=== PATIENT | female | born 1955 | race Caucasian/White ===

== ENCOUNTER → 2020-08-02 09:06 | Outpatient (REF) | payer MEDICAID, SELFPAY ==
--- NOTE | 2020-08-02 | NM_ITS ---
Lexiscan Myocardial perfusion study Indication: Chest pressure, hypertension, assess for coronary disease and ischemia Technique: The patient was brought in for a Lexiscan perfusion study on 08/02/2020 and was injected 0.4 mg of Lexiscan intravenously. Within a minute of this injection 25 mCi of sestamibi was given intravenously. Images were obtained using the SPECT gamma camera interlaced with the gating device. Images were obtained in supine position. Resting perfusion study was performed on 08/03/2020. Patient was administered 25 mCi of sestamibi intravenously at rest. Images were then obtained in supine position. Total DLP 76mGy-cm. Images were processed with the software and compared side to side in short axis, horizontal long axis and vertical long axis views. Findings: Raw acquisition was reviewed. The stress perfusion study showed mildly diminished tracer uptake in the distal part of the anterior wall. With CT attenuation correction, this is still persistent. The gated study shows normal LV systolic function with calculated LVEF of > 75%. LV cavity is normal in size. The gated study shows diminished wall thickening in the apical anterior wall. Resting study shows no significant perfusion abnormality. However, with CT attenuation correction there is a mild perfusion defect in the apical anterior wall. Gating at rest reveals ejection fraction at 71%. The findings are consistent with mild reversible apical anterior perfusion defect. Impression: 1. Myocardial perfusion imaging study shows mild apical anterior reversible perfusion defect suggestive of ischemia. 2. Gated LVEF is > 70%. 3. Transient ischemic dilatation not present. EKG component of the test reported separately.
--- NOTE | 2020-08-02 08:30 | CA_ITS ---
Acquisition Time: 2020-08-02 09:20:19 Total Exercise Time: 00:02:00 Test Indications: Chest Pain Medications: METOPROLOL AMLODIPINE LISINOPRIL/HCTZ ASA Protocol: LEXISCAN Max HR: 126 BPM 81% of Pred: 155 BPM Max BP: 152/084 mmHG Max Work Load: 1.0 METS Pharmacological stress test using Lexiscan while sitting and kicking. Tolerated well. C/o headache sx. reversed with Aminophyline. No anginal sx. EKG without any arrhythmias. Non-diagnostic for ischemia. Nuclear images to follow. Normotensive response to test. Test reviewed with Dr. Victoria Referred By: Amilcar Sutton Overread By: Esteban Bhatia
== END ==
LOC: HO.CARD 09:06
PROVIDERS: PCP Family Medicine; Visit Provider Internal Medicine Cardiovascular Disease
DX: R07.89 Other chest pain (principal)
CPT/HCPCS: 78452; 93017; A9500; J0280; J2785

== ENCOUNTER → 2020-09-07 10:45 | Outpatient (BNVA) | payer MEDICAID, SELFPAY | PROVIDERS: PCP Family Medicine; Visit Provider Internal Medicine Cardiovascular Disease | DX: I10 Essential (primary) hypertension (principal); R94.39 Abnormal result of other cardiovascular function study; Z79.82 Long term (current) use of aspirin | CPT/HCPCS: 99212 ==

== ENCOUNTER 2020-09-12 08:26 | Outpatient (REF) | payer MEDICAID, SELFPAY ==
[2020-09-12 09:42] LABS: Hemoglobin 15.3 g/dl (12.0-16.0); Mean Corpuscular Hemoglobin 31.6 pg (27.0-33.0); Mean Platelet Volume 10.3 fL (9.4-12.3); Platelet Count 225 X10*3/uL (160-400); Red Blood Count 4.84 X10*6/uL (4.20-5.50); Red Cell Distribution Width 11.9 % (11.0-16.0); White Blood Count 6.4 X10*3/uL (4.8-10.8)
[2020-09-12 10:10] LABS: Anion Gap 13 (12-20); Blood Urea Nitrogen 23 mg/dL (9-16); Calcium 9.1 mg/dL (8.4-10.2); Carbon Dioxide 28 mmol/L (22-29); Chloride 102 mmol/L (96-108); Cholesterol 247 mg/dL; Estimated Glomerular Filt Rate > 60; Glucose Random 97 mg/dL (60-115); HDL Cholesterol 52 mg/dL; LDL Cholesterol Calculated 162 mg/dl; Potassium 4.4 mmol/l (3.3-5.1); Sodium 139 mmol/L (135-145); Triglycerides 169 mg/dL
[2020-09-12 10:18] LABS: Prothrombin Time 11.4 SEC (10.8-13.0)
== END 2020-09-12 08:27 | disposition home or self-care (01) ==
LOC: HO.LAB 08:26
PROVIDERS: PCP Family Medicine; Visit Provider Internal Medicine Cardiovascular Disease
DX: R94.39 Abnormal result of other cardiovascular function study (principal); I10 Essential (primary) hypertension
CPT/HCPCS: 36415; 80048; 80061; 85027; 85610

== ENCOUNTER → 2020-10-16 13:53 | Outpatient (BNVA) | payer MEDICAID, SELFPAY | PROVIDERS: PCP Family Medicine; Visit Provider Internal Medicine Cardiovascular Disease | DX: I10 Essential (primary) hypertension (principal); I25.42 Coronary artery dissection | CPT/HCPCS: 99212 ==

== ENCOUNTER → 2021-02-19 10:08 | Outpatient (BNVA) | payer MEDICAID, SELFPAY | PROVIDERS: PCP Family Medicine; Visit Provider Internal Medicine Cardiovascular Disease | DX: I25.10 Atherosclerotic heart disease of native coronary artery without angina pectoris (principal); I10 Essential (primary) hypertension | CPT/HCPCS: 99212 ==

== ENCOUNTER → 2021-08-16 09:24 | Outpatient (BNVA) | payer MEDICAID, SELFPAY | PROVIDERS: PCP Family Medicine; Referring Provider Family Medicine; Visit Provider Internal Medicine Cardiovascular Disease | DX: I25.42 Coronary artery dissection (principal); I10 Essential (primary) hypertension | CPT/HCPCS: 93005; 99212 ==

== ENCOUNTER 2021-08-20 07:42 | Outpatient (REF) | payer MEDICAID, SELFPAY ==
--- NOTE | ~2021-08-20 | CT_ITS ---
EXAMINATION: CT HEAD WITHOUT CONTRAST CLINICAL INFORMATION: 65-year-old female presented with other symptoms and signs involving cognitive function . COMPARISON: CT of the head done on 04/12/2020. TECHNIQUE: Contiguous axial imaging was performed from the skull base to vertex without intravenous administration of contrast. This CT examination was performed using dose optimization techniques as appropriate, variously including the following: *Automated exposure control *Adjustment of mA and/or kV according to patient size (this includes techniques or standardized protocols for targeted exams where dose is matched to indication/reason for exam; i.e. extremities or head) *Use of iterative reconstruction technique DLP: 598.0 mGy-cm FINDINGS: There is no evidence of acute intracranial hemorrhage or territorial infarction. No abnormal mass effect or midline shift is seen. Guidry to white matter differentiation is well preserved. No extra-axial fluid collections are identified. The ventricles are normal in size. There is no abnormal attenuation within the brain parenchyma. The osseous structures and soft tissues are normal. The mastoid air cells and visualized portions of the paranasal sinuses are well aerated. No significant change since 04/12/2020. CT/CT head/brain wo con IMPRESSION: No acute intracranial pathology. No significant change since 04/12/2020.
== END 2021-08-20 07:43 | disposition home or self-care (01) ==
LOC: HO.CT 07:42
PROVIDERS: PCP Family Medicine; Visit Provider Family Medicine
DX: R41.89 Other symptoms and signs involving cognitive functions and awareness (principal); R42 Dizziness and giddiness
CPT/HCPCS: 70450

== ENCOUNTER 2021-11-20 07:08 | Outpatient (RCR) | payer MEDICAID, SELFPAY ==
[2021-11-20 07:10] VITALS: BP 140/80; PULSE 86; O2SAT 96
== END 2022-05-10 13:33 | disposition home or self-care (01) ==
LOC: HO.PTWFD 07:08
PROVIDERS: PCP Family Medicine; Visit Provider Family Medicine
DX: R42 Dizziness and giddiness (principal)
CPT/HCPCS: 95992; 97162

== ENCOUNTER 2021-11-26 10:09 | Outpatient (REF) | payer MEDICAID, SELFPAY ==
[2021-11-26 11:37] LABS: MANUAL DIFF FLAG NO
[2021-11-26 11:39] LABS: Appearance Urine CLEAR; Color Urine YELLOW; Glucose Urine UA NEG (NEG); Leukocyte Esterase Urine 1+ (NEG); Nitrite Urine NEG (NEG); PH 6.5 (5.0-8.0); Specific Gravity - Urine <= 1.005 (1.005-1.025); Urine Blood TRACE (NEG); Urine Ketones NEG (NEG); Urine Protein NEG (NEG-TRACE)
[2021-11-26 11:51] LABS: Basophils Percent Auto 0.2 % (0-2); Eosinophils Percent Auto 0.2 % (0-4); Hematocrit 42.3 % (37.0-47.0); Hemoglobin 14.5 g/dl (12.0-16.0); Imm Gran Abs Auto 0.02 X10*3/uL (0.00-0.03); Imm Gran Pct Auto 0.3 % (0.0-0.4); Lymphocytes Absolute Auto 1.5 X10*3/uL (1.2-4.9); Mean Corpuscular HGB Conc 34.3 g/dl (31.0-35.0); Mean Corpuscular Volume 90.6 fL (80.0-98.0); Mean Platelet Volume 9.8 fL (9.4-12.3); Monocytes Absolute Auto 0.7 X10*3/uL (0.1-1.2); Monocytes Percent Auto 11.1 % (2-11); Neutrophils Absolute Auto 3.9 x10*3/uL (2.0-8.3); Neutrophils Percent Auto 63.2 % (45-73); Platelet Count 210 X10*3/uL (160-400); Red Blood Count 4.67 X10*6/uL (4.20-5.50); Red Cell Distribution Width 11.7 % (11.0-16.0); White Blood Count 6.1 X10*3/uL (4.8-10.8)
[2021-11-26 11:57] LABS: Bacteria Urine 3+ /LPF; RBC Urine 0-2 /HPF (0); Squamous Epithelial Cell Urine 3+ /LPF; WBC Urine 0-2 /HPF (0-4)
[2021-11-26 12:15] LABS: Alanine Aminotransferase 36 U/L (0-31); Albumin Level 4.1 g/dL (3.5-5.0); Alkaline Phosphatase 94 U/L (39-117); Anion Gap 14 (12-20); Aspartate Amino Transferase 25 U/L (5-31); Bilirubin Total 0.8 mg/dL (0.0-1.0); Blood Urea Nitrogen 16 mg/dL (9-16); Calcium 9.5 mg/dL (8.4-10.2); Carbon Dioxide 26 mmol/L (22-29); Chloride 101 mmol/L (96-108); Estimated Glomerular Filt Rate > 60; Glucose Random 99 mg/dL (60-115); Potassium 3.6 mmol/L (3.3-5.1); Sodium 137 mmol/L (135-145); Total Protein 7.1 g/dL (6.5-8.0)
[2021-11-26 12:37] LABS: TSH reflex Free T4 0.48 uIU/mL (0.32-4.0)
== END 2021-11-26 10:10 | disposition home or self-care (01) ==
LOC: HO.WFDLDS 10:09
PROVIDERS: Visit Provider Family Medicine
DX: Z00.00 Encounter for general adult medical examination without abnormal findings (principal); I10 Essential (primary) hypertension; R42 Dizziness and giddiness
CPT/HCPCS: 36415; 80053; 81001; 84443; 85025

== ENCOUNTER 2021-12-31 11:44 | Outpatient (REF) | payer MEDICAID, SELFPAY | END 2021-12-31 11:45 | disposition home or self-care (01) | LOC: HO.LAB 11:44 | PROVIDERS: Visit Provider Family Medicine | DX: Z00.00 Encounter for general adult medical examination without abnormal findings (principal); R30.0 Dysuria | CPT/HCPCS: 87086; 87088 ==

== ENCOUNTER 2022-02-04 10:25 | Outpatient (REF) | payer MEDICAID, SELFPAY ==
[2022-02-04 13:42] LABS: Anion Gap 14 (12-20); Blood Urea Nitrogen 28 mg/dL (9-16); Calcium 10.3 mg/dL (8.4-10.2); Carbon Dioxide 25 mmol/L (22-29); Chloride 100 mmol/L (96-108); Estimated Glomerular Filt Rate > 60; Glucose Random 100 mg/dL (60-115); Potassium 4.3 mmol/L (3.3-5.1); Sodium 135 mmol/L (135-145)
[2022-02-04 14:29] LABS: Creatinine Urine 76.49 mg/dL; Microalbum/Creatinine Ratio Ur 15.6 ug/mg cr
== END 2022-02-04 10:26 | disposition home or self-care (01) ==
LOC: HO.WFDLDS 10:25
PROVIDERS: Visit Provider Family Medicine
DX: Z00.00 Encounter for general adult medical examination without abnormal findings (principal); I10 Essential (primary) hypertension
CPT/HCPCS: 36415; 80048; 82043

== ENCOUNTER 2022-08-05 10:02 | Outpatient (REF) | payer MEDICAID, SELFPAY ==
--- NOTE | ~2022-08-05 | XR_ITS ---
EXAMINATION: XR FOOT, LEFT CLINICAL INFORMATION: Pain COMPARISON: None TECHNIQUE: AP, lateral, and oblique views of the left foot. FINDINGS: Bone alignment is normal. No fracture or dislocation is seen. There is mild arthritis first MTP joint with joint space narrowing and osteophyte formation. There are calcaneal spurs. Soft tissues are otherwise normal. XR/XR foot LT min 3V IMPRESSION: Mild arthritis at the first MTP joint and calcaneal spurs.
--- NOTE | ~2022-08-05 | XR_ITS ---
EXAMINATION: XR CERVICAL SPINE CLINICAL INFORMATION: Spondylosis COMPARISON: Previous cervical spine x-ray June 2020 TECHNIQUE: 1 views of the cervical spine were obtained. FINDINGS: There is curvature of the lower cervical and upper thoracic spine to the left. Bone alignment is otherwise normal. No fracture or dislocation. There is degenerative spondylosis and degenerative disc disease at C5-C6 and C6-C7. Right-sided neural foramen are patent. There is left-sided neural foraminal narrowing at C5-C6 from bony osteophyte. Prevertebral soft tissues are normal. XR/XR cervical spine 4V IMPRESSION: Degenerative changes similar to June 2020 exam.
[2022-08-05 10:17] LABS: MANUAL DIFF FLAG NO
[2022-08-05 10:36] LABS: Basophils Percent Auto 0.2 % (0-2); Eosinophils Percent Auto 0.7 % (0-4); Hematocrit 43.8 % (37.0-47.0); Hemoglobin 14.8 g/dl (12.0-16.0); Imm Gran Abs Auto 0.01 X10*3/uL (0.00-0.03); Imm Gran Pct Auto 0.2 % (0.0-0.4); Lymphocytes Absolute Auto 2.2 X10*3/uL (1.2-4.9); Lymphocytes Percent Auto 39.1 % (20-40); Mean Corpuscular HGB Conc 33.8 g/dl (31.0-35.0); Mean Corpuscular Hemoglobin 31.4 pg (27.0-33.0); Mean Corpuscular Volume 92.8 fL (80.0-98.0); Monocytes Absolute Auto 0.4 X10*3/uL (0.1-1.2); Monocytes Percent Auto 7.7 % (2-11); Neutrophils Percent Auto 52.1 % (45-73); Platelet Count 222 X10*3/uL (160-400); Red Blood Count 4.72 X10*6/uL (4.20-5.50); Red Cell Distribution Width 12.4 % (11.0-16.0); White Blood Count 5.7 X10*3/uL (4.8-10.8)
[2022-08-05 11:04] LABS: Alanine Aminotransferase 39 U/L (0-31); Albumin Level 4.3 g/dL (3.5-5.0); Alkaline Phosphatase 101 U/L (39-117); Anion Gap 16 (12-20); Aspartate Amino Transferase 31 U/L (5-31); Bilirubin Total 0.8 mg/dL (0.0-1.0); Blood Urea Nitrogen 20 mg/dL (9-16); Calcium 9.6 mg/dL (8.4-10.2); Carbon Dioxide 23 mmol/L (22-29); Chloride 108 mmol/L (96-108); Estimated Glomerular Filt Rate > 60; Glucose Random 124 mg/dL (60-115); Sodium 143 mmol/L (135-145); Total Protein 7.3 g/dL (6.5-8.0)
[2022-08-05 11:25] LABS: Erythrocyte Sedimentation Rate 10 MM/HR (0-20)
== END 2022-08-05 10:03 | disposition home or self-care (01) ==
LOC: HO.XRAY 10:02
PROVIDERS: PCP Family Medicine; Visit Provider Psychiatry & Neurology Neurology
DX: M79.672 Pain in left foot (principal); M47.812 Spondylosis without myelopathy or radiculopathy, cervical region; G31.84 Mild cognitive impairment of uncertain or unknown etiology
CPT/HCPCS: 36415; 72050; 73630; 80053; 85025; 85652

== ENCOUNTER → 2022-09-30 10:39 | Outpatient (BNVA) | payer MEDICAID, SELFPAY | PROVIDERS: PCP Family Medicine; Referring Provider Family Medicine; Visit Provider Internal Medicine Cardiovascular Disease | DX: I25.42 Coronary artery dissection (principal); I10 Essential (primary) hypertension; E78.5 Hyperlipidemia, unspecified | CPT/HCPCS: 93005; 99212 ==

== ENCOUNTER 2022-10-01 09:27 | Outpatient (REF) | payer MEDICAID, SELFPAY ==
[2022-10-01 10:27] LABS: Cholesterol 178 mg/dL; HDL Cholesterol 58 mg/dL; LDL Cholesterol Calculated 100 mg/dl; Triglycerides 102 mg/dL
== END 2022-10-01 09:28 | disposition home or self-care (01) ==
LOC: HO.LAB 09:27
PROVIDERS: PCP Family Medicine; Visit Provider Internal Medicine Cardiovascular Disease
DX: E78.5 Hyperlipidemia, unspecified (principal)
CPT/HCPCS: 36415; 80061

== ENCOUNTER 2023-01-03 12:01 | Outpatient (REF) | payer MEDICAID, SELFPAY ==
[2023-01-03 13:47] LABS: MANUAL DIFF FLAG NO
[2023-01-03 13:52] LABS: Basophils Percent Auto 0.4 % (0-2); Eosinophils Absolute Auto 0.1 X10*3/uL (0.0-0.4); Eosinophils Percent Auto 1.5 % (0-4); Hematocrit 43.8 % (37.0-47.0); Imm Gran Abs Auto 0.02 X10*3/uL (0.00-0.03); Imm Gran Pct Auto 0.3 % (0.0-0.4); Lymphocytes Absolute Auto 3.1 X10*3/uL (1.2-4.9); Lymphocytes Percent Auto 40.5 % (20-40); Mean Corpuscular HGB Conc 34.2 g/dl (31.0-35.0); Mean Corpuscular Hemoglobin 31.4 pg (27.0-33.0); Mean Corpuscular Volume 91.8 fL (80.0-98.0); Monocytes Absolute Auto 0.6 X10*3/uL (0.1-1.2); Monocytes Percent Auto 7.5 % (2-11); Neutrophils Absolute Auto 3.8 x10*3/uL (2.0-8.3); Neutrophils Percent Auto 49.8 % (45-73); Platelet Count 251 X10*3/uL (160-400); Red Blood Count 4.77 X10*6/uL (4.20-5.50); Red Cell Distribution Width 12.7 % (11.0-16.0); White Blood Count 7.6 X10*3/uL (4.8-10.8)
[2023-01-03 15:27] LABS: Anion Gap 17 (12-20); Blood Urea Nitrogen 23 mg/dL (9-16); Calcium 9.8 mg/dL (8.4-10.2); Carbon Dioxide 25 mmol/L (22-29); Chloride 102 mmol/L (96-108); Estimated Glomerular Filt Rate > 60; Glucose Random 108 mg/dL (60-115); Potassium 3.9 mmol/L (3.3-5.1); Sodium 140 mmol/L (135-145)
[2023-01-03 15:31] LABS: Thyroid Stimulating Hormone 1.01 uIU/mL (0.32-4.0)
[2023-01-05 16:08] LABS: Triiodothyronine T3 Total 120 ng/dL (76-181)
== END 2023-01-03 12:02 | disposition home or self-care (01) ==
LOC: HO.WFDLDS 12:01
PROVIDERS: Visit Provider Family Medicine
DX: Z00.00 Encounter for general adult medical examination without abnormal findings (principal); R22.1 Localized swelling, mass and lump, neck; E03.9 Hypothyroidism, unspecified
CPT/HCPCS: 36415; 80048; 84439; 84443; 84480; 85025

== ENCOUNTER 2023-01-08 09:31 | Outpatient (REF) | payer MEDICAID, SELFPAY ==
--- NOTE | ~2023-01-08 | US_ITS ---
EXAMINATION: US THYROID CLINICAL INFORMATION: Localized swelling, mass and lump, neck. COMPARISON: None available. TECHNIQUE: Linear transducer grayscale and color Doppler examination with attention to the region of the thyroid. FINDINGS: SIZE: Measurements of the thyroid lobes and nodules are given in sagittal, anteroposterior and transverse dimensions respectively. Right Thyroid Lobe: 4.5 x 2.6 x 3.2 cm, volume 19.6 mL. Parenchyma: The gland echotexture is heterogeneous. Thyroid vascularity is increased. Left Thyroid Lobe: 3.9 x 1.3 x 1.2 cm, volume 3.2 mL. Parenchyma: The gland echotexture is homogeneous. Thyroid vascularity is mildly increased. Isthmus: 1.5 cm in maximum AP dimension. Estimated total number of nodules greater than or equal to 1 cm: 3. Heel Trimmer nodules are described as follows: 1. Location: Right mid. Size: 3.6 x 2.6 x 2.8 cm, volume 13.8 mL. Nodule characteristics: Composition: Mixed cystic and solid (1). Echogenicity: Isoechoic (1). Shape: Not taller than wide (0). Margins: Smooth (0). Echogenic Foci: Punctate echogenic foci (3). ACR TI-RADS total points: 5 ACR TI-RADS category: 4 2. Location: Isthmus inferior. Size: 3.0 x 2.0 x 2.6 cm, volume 8.2 mL. Nodule characteristics: Composition: Solid (2). Echogenicity: Hypoechoic (2). Shape: Not taller than wide (0). Margins: Extrathyroidal extension (3). Echogenic Foci: None (0). ACR TI-RADS total points: 7 ACR TI-RADS category: 5 3. Location: Left lateral. Size: 0.9 x 0.5 x 0.5 cm, volume 0.11 mL. Nodule characteristics: Composition: Solid (2). Echogenicity: Isoechoic (1). Shape: Not taller than wide (0). Margins: Smooth (0). Echogenic Foci: None (0). ACR TI-RADS total points: 3 ACR TI-RADS category: 3 4. Location: Left mid. Size: 1.2 x 0.7 x 0.9 cm, volume 0.4 mL. Nodule characteristics: Composition: Solid (2). Echogenicity: Isoechoic (1). Shape: Not taller than wide (0). Margins: Smooth (0). Echogenic Foci: None (0). ACR TI-RADS total points: 3 ACR TI-RADS category: 3 NODES: No lymphadenopathy is seen in the tissue surrounding the thyroid gland. US/US thyroid IMPRESSION: 1. Bilateral thyroid nodules are seen, as detailed. The 3.6 cm and 3.0 cm in maximal diameter right thyroid lobe and thyroid isthmus nodules meet ACR biopsy criteria and are amenable to ultrasound-guided biopsy, if clinically indicated and not already performed. 2. There is heterogeneous thyroid echotexture and increased vascularity, which can be associated with thyroiditis. ACR TI-RADS RECOMMENDATION REFERENCE: Ultrasound-guided fine-needle aspiration, followup ultrasound, no further follow up. * TR1 (0 point) and TR2 (2 points): No FNA or follow up. * TR3 (3 points): FNA if more than or equal to 2.5 cm in maximum dimension, followup ultrasound in 1, 3 and 5 years if 1.5 to 2.4 cm in maximum dimension. * TR4 (4-6 points): FNA if more than or equal to 1.5 cm in maximum dimension, followup ultrasound in 1, 2, 3 and 5 years if 1 to 1.4 cm in maximum dimension. * TR5 (more than or equal to 7 points): FNA if more than or equal to 1 cm in maximum dimension, followup ultrasound every year for 5 years if 0.5 to 0.9 cm in maximum dimension. * TR3, TR4 or TR5 nodules that are below the size threshold for followup receive no follow up.
== END 2023-01-08 09:32 | disposition home or self-care (01) ==
LOC: HO.US 09:31
PROVIDERS: PCP Family Medicine; Visit Provider Family Medicine
DX: R22.1 Localized swelling, mass and lump, neck (principal)
CPT/HCPCS: 76536

== ENCOUNTER → 2023-01-27 08:57 | Outpatient (BNVA) | payer MEDICAID, SELFPAY | PROVIDERS: PCP Family Medicine; Visit Provider Internal Medicine | DX: E04.2 Nontoxic multinodular goiter (principal) | CPT/HCPCS: 99202 ==

== ENCOUNTER 2023-05-13 08:57 | Outpatient (AMB) | payer MEDICAID, SELFPAY ==
[2023-05-13 08:58] VITALS: BP 128/72; PULSE 95; RESP 12; TEMP 36.6; O2SAT 98; BMI 27.7
--- NOTE | 2023-05-13 08:58 | MHC.PC.OV ---
Vital Signs 05/13/23 08:58 Height 5 ft Weight 142 lb BMI 27.7 BP 128/72 Blood Pressure Location Rt brachial Position Sitting Respiration 12 Pulse 95 Pulse Source Pulse Oximeter Temp 97.8 F Temp Source Temporal Artery Scan Pulse Oximetry (%) 98 Oxygen Delivery Method Room Air Intake Visit Reasons: f/u hypertension and chronic conditions Buffing Turner And Counter Required: Yes Buffing Turner And Counter Name: Daughter (Luz) Accompanied by: Daughter Allergies flu shot Adverse Reaction (Unknown, Uncoded 02/11/23 09:54) Patient can't remember reaction. Tobacco use date assessed: 01/09/23 Fall risk assessment: No Falls in past year Last assessed Fall Risk: 05/13/23 Dental Screening Dental Screen Date: 05/13/23 Did you have a dental visit in the last 12 months?: No Did you have a dental problem in the last 6 months where you did not have access to dental care?: No Was dental information given to patient?: Patient has dentist HPI f/u hypertension and chronic conditions HPI Details 67 y/o female with hx of coronary artery dissection presents to f/u hypertension and chronic conditions. Blood pressure today is 128/72. She is on lisinopril 40mg and HCTZ 12.5mg. Also on spironolactone 25mg daily. She denies any problems with her medication regimen. They state she had decided not to go to an ENT specialist as she had started to feel better. They report sciatica on L side and knee pain. [facility] Medical History No pertinent past medical history Surgical History History of cardiac cath Hx of appendectomy Family History Mother HTN (hypertension) Father No problems noted. Social History Housing: House Alcohol intake: never Patient Tobacco Use Status: Never used Tobacco e-Cigarette/Vaping Use: Never Used Second Hand Smoke Exposure: No Advance Directives Date on File: 08/15/20 service: No Current occupational status: retired Current occupational exposures/hazards: No Cognitive needs: No Hearing needs: No Vision needs: No Questionnaire Thrive Questionnaire Date Thrive assessed: 01/09/23 Review of Systems Const Denies chills, Denies fatigue, Denies fever(s), Denies headache(s) and Denies weakness ENT Denies dizziness and Denies headache(s) Card Denies chest pain, Denies lightheadedness, Denies dyspnea and Denies other (Palpitations) Resp Denies cough, Denies dyspnea, Denies wheezing and Denies other ( shortness of breath) Musc Details: Knee pain Reports back pain, Denies numbness and Denies tingling Neuro Denies dizziness, Denies headache(s), Denies numbness, Denies tingling, Denies paresthesias and Denies weakness Psych Denies anxiety and Denies depression Endo Denies fatigue Aller/Immun Denies wheezing Physical exam (Primary Care) Vital Signs: Last Vital Signs Temp 97.8 F 05/13/23 08:58 Pulse 95 05/13/23 08:58 Resp 12 05/13/23 08:58 BP 128/72 05/13/23 08:58 Pulse Ox 98 05/13/23 08:58 Oxygen Delivery Method Room Air 05/13/23 08:58 BMI result Body Mass Index 27.7 Tobacco/Smoking Status: Tobacco use Status Tobacco use date assessed 01/09/23 05/13/23 09:05 Patient Tobacco Use Status Never used Tobacco 05/13/23 09:05 e-Cigarette/Vaping Use Never Used 05/13/23 09:05 Thrive Assessment: Date of Thrive Assessment Date Thrive assessed 01/09/23 05/13/23 09:05 Const General: no acute distress and well developed Nutritional Appearance: well nourished Orientation/consciousness: patient oriented x3 [facility] Head: Yes normocephalic and Yes atraumatic Eyes General: appearance normal, both eyes and all related structures Pupils: Equal, round and reactive pupils present EOM: EOMs intact bilaterally Resp Effort & Inspection: normal respiratory effort Auscultation: clear to auscultation bilaterally Cardio Rate: regular rate Rhythm: regular rhythm Heart sounds: S1 normal heart sound present, S2 normal heart sound present, no gallops, no murmurs and no rubs Neuro General: patient oriented x3 and gait normal Cranial nerves: Yes Equal, round and reactive pupils present Psych Affect: normal affect Assessment and Plan Assessment & Plan (1) Hypertension: Code(s): I10 - Essential (primary) hypertension Plan: Blood pressure is well controlled. Goal is less than 130/80 Continue current medication regimen (2) Coronary artery dissection: Code(s): I25.42 - Coronary artery dissection Plan: Stable Follow-up with Cardiology. She has an appointment in September (3) Thyroid nodule: Code(s): E04.1 - Nontoxic single thyroid nodule Plan: She is followed by endocrinology. I had made a referral to ENT which she is declining Has an upcoming appointment with endocrinology and can discuss with her. (4) Sciatica, left side: Code(s): M54.32 - Sciatica, left side Plan: Ongoing left-sided sciatica and knee pain. Lidoderm patches are helping Will continue these and refill. (5) Knee pain: Code(s): M25.569 - Pain in unspecified knee Plan: As above Orders: Orders Comprehensive [place]. Panel Fast Today Z00.00 - Encounter for general adult medical examination without abnormal findings Complete Blood Count Auto Diff Today Z00.00 - Encounter for general adult medical examination without abnormal findings Lipid Panel Today Z00.00 - Encounter for general adult medical examination without abnormal findings TSH reflex Free T4 Today Z00.00 - Encounter for general adult medical examination without abnormal findings Microalbumin, Random (w Creat) Today I10 - Essential (primary) hypertension UA and rflx microscopic Today Z00.00 - Encounter for general adult medical examination without abnormal findings Medications: Refilled lidocaine 5% (Lidoderm) leave on most painful area for up to 12 hrs 1 patch topical DAILY 30 days 30 ea 6RF M25.569 - Pain in unspecified knee, M54.32 - Sciatica, left side Coding Level of Care Code Est Pt Level 4 (13262) Diagnoses Hypertension I10 Coronary artery dissection I25.42 Thyroid nodule E04.1 Sciatica, left side M54.32 Knee pain M25.569
== END 2023-05-13 09:21 | disposition home or self-care (01) ==
PROVIDERS: Visit Provider Family Medicine
DX: I10 Essential (primary) hypertension (principal); I25.42 Coronary artery dissection; E04.1 Nontoxic single thyroid nodule; M54.32 Sciatica, left side; M25.569 Pain in unspecified knee
CPT/HCPCS: 99214

== ENCOUNTER 2023-08-18 10:31 | Outpatient (REF) | payer MEDICAID, SELFPAY ==
[2023-08-18 14:40] LABS: MANUAL DIFF FLAG NO
[2023-08-18 14:59] LABS: Appearance Urine Clear; Basophils Percent Auto 0.4 % (0-2); Color Urine Yellow; Eosinophils Absolute Auto 0.1 X10*3/uL (0.0-0.4); Eosinophils Percent Auto 1.4 % (0-4); Glucose Urine UA Negative (Negative); Hematocrit 43.3 % (37.0-47.0); Hemoglobin 14.7 g/dl (12.0-16.0); Imm Gran Abs Auto 0.01 X10*3/uL (0.00-0.03); Imm Gran Pct Auto 0.2 % (0.0-0.4); Leukocyte Esterase Urine Negative (Negative); Lymphocytes Absolute Auto 2.6 X10*3/uL (1.2-4.9); Lymphocytes Percent Auto 45.5 % (20-40); Mean Corpuscular HGB Conc 33.9 g/dl (31.0-35.0); Mean Corpuscular Hemoglobin 31.3 pg (27.0-33.0); Mean Corpuscular Volume 92.3 fL (80.0-98.0); Mean Platelet Volume 11.2 fL (9.4-12.3); Monocytes Absolute Auto 0.5 X10*3/uL (0.1-1.2); Monocytes Percent Auto 8.8 % (2-11); Neutrophils Absolute Auto 2.5 x10*3/uL (2.0-8.3); Neutrophils Percent Auto 43.7 % (45-73); Nitrite Urine Negative (Negative); PH 5.5 (5.0-9.0); Platelet Count 179 X10*3/uL (160-400); Red Blood Count 4.69 X10*6/uL (4.20-5.50); Red Cell Distribution Width 12.2 % (11.0-16.0); Specific Gravity - Urine 1.015 (1.005-1.025); Urine Blood Negative (Negative); Urine Ketones Negative (Negative); Urine Protein Negative (Neg-Trace); White Blood Count 5.7 X10*3/uL (4.8-10.8)
[2023-08-18 15:28] LABS: Alanine Aminotransferase 29 U/L (0-31); Alkaline Phosphatase 76 U/L (39-117); Anion Gap 11 (12-20); Aspartate Amino Transferase 22 U/L (5-31); Bilirubin Total 0.4 mg/dL (0.0-1.0); Blood Urea Nitrogen 14 mg/dL (9-16); Calcium 9.6 mg/dL (8.4-10.2); Carbon Dioxide 23 mmol/L (22-29); Chloride 110 mmol/L (96-108); Cholesterol 217 mg/dL (<200); Estimated Glomerular Filt Rate > 60; Glucose Fasting 92 mg/dL (60-99); HDL Cholesterol 52 mg/dL (>40); LDL Cholesterol Calculated 127 mg/dL (<100); Potassium 3.9 mmol/L (3.3-5.1); Sodium 140 mmol/L (135-145); Total Protein 7.2 g/dL (6.5-8.0); Triglycerides 190 mg/dL (<150)
[2023-08-18 15:29] LABS: TSH reflex Free T4 0.25 uIU/mL (0.32-4.0)
[2023-08-18 15:37] LABS: Creatinine Urine 51.11 mg/dL; Microalbumin Urine < 5.0 mg/L
[2023-08-18 16:09] LABS: Free T4 (Free Thyroxine) 0.85 ng/dL (0.71-1.85)
== END 2023-08-18 10:32 | disposition home or self-care (01) ==
LOC: HO.WFDLDS 10:31
PROVIDERS: Visit Provider Family Medicine
DX: Z00.00 Encounter for general adult medical examination without abnormal findings (principal); I10 Essential (primary) hypertension
CPT/HCPCS: 36415; 80053; 80061; 81003; 82043; 82570; 84439; 84443; 85025

== ENCOUNTER 2023-08-22 09:15 | Outpatient (AMB) | payer SELFPAY ==
[2023-08-22 09:22] VITALS: BP 120/70; PULSE 79; O2SAT 96; BMI 27.9
--- NOTE | 2023-08-22 09:22 | A.OFFPC_ITS ---
Vital Signs 08/22/23 09:22 Height 5 ft Weight 143 lb BMI 27.9 BP 120/70 Blood Pressure Location Lt brachial Position Sitting Pulse 79 Pulse Source Pulse Oximeter Pulse Oximetry (%) 96 Oxygen Delivery Method Room Air Intake Visit Reasons: Extended exam with f/u labs and health maintenance Intake Note: Patient is here for a physical and to follow on labs. Allergies flu shot Adverse Reaction (Unknown, Uncoded 08/22/23 09:25) Patient can't remember reaction. Tobacco use date assessed: 08/22/23 Fall risk assessment: No Falls in past year Last assessed Fall Risk: 08/22/23 HPI Extended exam with f/u labs and health maintenance HPI Details 67 y/o female presents for an extended e xam with f/u labs and health maintenance. Labs were drawn 08/18/23. Reviewed labs with pt. Triglycerides 190. TC 217. LDL 127. HDL 52. She is on artovastatin 80mg daily. Low TSH of 0.25. Pt has complaints of L hip pain. They report constipation. [facility] Medical History No pertinent past medical history Surgical History History of cardiac cath Hx of appendectomy Family History Mother HTN (hypertension) Father No problems noted. Social History Housing: House Alcohol intake: never Patient Tobacco Use Status: Never used Tobacco e-Cigarette/Vaping Use: Never Used Second Hand Smoke Exposure: No Advance Directives Date on File: 08/15/20 service: No Current occupational status: retired Current occupational exposures/hazards: No Cognitive needs: No Hearing needs: No Vision needs: No Questionnaire PHQ-9 Over the last 2 weeks, how often have you been bothered by any of the following problems? 1. Little interest or pleasure in doing things: not at all 2. Feeling down, depressed, or hopeless: several days 3. Trouble falling or staying asleep, or sleeping too much: nearly every day 4. Feeling tired or having little energy: nearly every day 5. Poor appetite or overeating: several days 6. Feeling bad about yourself - or that you are a failure or have let yourself or your family down: not at all 7. Trouble concentrating on things, such as reading the newspaper or watching television: nearly every day 8. Moving or speaking so slowly that other people could have noticed. Or the opposite - being so fidgety or restless that you have been moving around a lot more than usual: not at all 9. Thoughts that you would be better off or of hurting yourself in some way: not at all Total score: 11 Source: Developed by Drs. Vinay Payan, Nehal Hardy, Tai Dempsey and colleagues, with an educational trini from [employer]. Thrive Questionnaire Date Thrive assessed: 01/09/23 MARY-7 AMB Questionnaire MARY-7 Date MARY - 7 assessed: 08/22/23 Feeling nervous, anxious, or on edge: 1 = Several days Not being able to stop or control worryin = Several days Worrying too much about different things: 3 = Nearly every day Trouble relaxin = Several days Being so restless that it is hard to sit still: 0 = Not at all Becoming easily annoyed or irritable: 1 = Several days Feeling afraid as if something awful might happen: 1 = Several days Total MARY-7 score (0-4 normal; 5-9 mild; 10-14 moderate; 15-21 severe): 8 Source: Developed by Drs. Vinay Payan, Nehal Hardy, Tai Dempsey and colleagues, with an educational trini from [employer]. Review of Systems Const Denies chills, Denies fatigue, Denies fever(s), Denies headache(s) and Denies weakness Eyes Denies change in vision ENT Denies dizziness, Denies headache(s), Denies hearing loss, Denies nasal congestion, Denies sinus pain, Denies sinus pressure and Denies sore throat Card Denies chest pain, Denies lightheadedness, Denies dyspnea and Denies other (palpitations) Resp Denies cough, Denies dyspnea and Denies wheezing GI Reports constipation Denies hematuria and Denies dysuria Musc Details: L hip pain Denies abnormal gait, Denies myalgias, Denies arthralgias, Denies numbness and Denies tingling Skin/Breast Denies rash, Denies unusual bruising and Denies wounds Neuro Denies abnormal gait, Denies dizziness, Denies headache(s), Denies memory loss, Denies numbness, Denies Sensory deficit (Neuro), Denies tingling and Denies weakness Psych Denies anxiety, Denies depression and Denies memory loss Endo Denies cold intolerance, Denies fatigue, Denies heat intolerance, Denies polydipsia and Denies polyuria Michael/Lymph Denies easy bleeding and Denies easy bruising Aller/Immun Denies wheezing Physical exam (Primary Care) Vital Signs: Last Vital Signs Pulse 79 08/22/23 09:22 BP 120/70 08/22/23 09:22 Pulse Ox 96 08/22/23 09:22 Oxygen Delivery Method Room Air 08/22/23 09:22 BMI result Body Mass Index 27.9 Tobacco/Smoking Status: Tobacco use Status Tobacco use date assessed 08/22/23 08/22/23 09:27 Patient Tobacco Use Status Never used Tobacco 08/22/23 09:25 e-Cigarette/Vaping Use Never Used 08/22/23 09:25 PHQ-9: PHQ-9 Score PHQ-9: Total score 11 08/22/23 09:35 Thrive Assessment: Date of Thrive Assessment Date Thrive assessed 01/09/23 08/22/23 09:25 Const General: no acute distress, well developed, alert and awake Nutritional Appearance: well nourished Orientation/consciousness: patient oriented x3 HENMT Head: Yes normocephalic and Yes atraumatic Ears: hearing grossly normal bilaterally and TM's normal bilaterally General nose exam: Normal external nose present and Normal nares present Mouth: Normal oral and palatal mucosa present and moist mucous membranes Teeth and gingiva: dentition normal Throat: Yes posterior oropharynx normal Eyes General: appearance normal, both eyes and all related structures Pupils: Equal, round and reactive pupils present and Pupil accommodation reflex normal EOM: EOMs intact bilaterally Neck Neck: Yes normal visual inspection, Yes no lymphadenopathy and Yes trachea midline Thyroid: Thyroid normal Carotids: no bruits Lymphatic: no lymphadenopathy noted Chest Chest palpation & inspection: normal inspection of the chest Resp Effort & Inspection: normal respiratory effort Auscultation: clear to auscultation bilaterally Cardio Rate: regular rate Rhythm: regular rhythm Heart sounds: S1 normal heart sound present, S2 normal heart sound present, no gallops, no murmurs and no rubs Bruits: no abdominal aortic bruits and no carotid bruits GI Palpation (GI): No Abdominal aortic bruit present, Soft to palpation, nontender, No hepatosplenomegaly present and No Rebound tenderness present Auscultation: normal bowel sounds General: Yes no CVA tenderness Back/Spine/Pelvis Back: no CVA tenderness Cervical Spine: cervical ROM normal and No Cervical spine tenderness Thoracic/Lumbar Spine: thoraco-lumbar ROM normal, No pain with thoraco-lumbar ROM, No thoracic spinal tenderness and No lumbar spinal tenderness Skin Lesions: no lesions Rashes: no rashes Trauma: no lacerations or abrasions Wounds: no wounds Nails: normal Neuro General: patient oriented x3 Cranial nerves: Yes Equal, round and reactive pupils present Cognition (Neuro): normal cognition Gait exam (Neuro): Normal gait present Motor exam (neuro): 5/5 motor strength present throughout Sensory Exam: No Sensory deficit (Neuro) Deep tendon reflexes (DTR's): Right patellar reflex intensity grade: 2+ and Left patellar reflex intensity grade: 2+ Extrem General: Yes normal to inspection and No edema Psych Appearance: grossly normal Affect: normal affect Attitude: cooperative Thought process: Normal thought process present Assessment and Plan Assessment & Plan (1) Hyperlipidemia: Code(s): E78.5 - Hyperlipidemia, unspecified Plan: Patient?is?on?atorvastatin?and?Zetia?at?maximum?doses Lipids?fairly?well?controlled?but?I?encouraged?her?to?work?on?a?diet?lower?in?sa turated?fats?and?cholesterol (2) Left hip pain: Code(s): M25.552 - Pain in left hip Plan: Pain?at?left?posterolateral?hip?which?may?be?a?pi riformis?muscle?strain?or?or?a?nerve?impingement Declines?referral?for?physical?therapy?at?present Checking?x-ray?and?referring?her?to?Ortho (3) Low TSH level: Code(s): R79.89 - Other specified abnormal findings of blood chemistry Plan: Thyroid?nodules?which?have?not?been?characterized?by? biopsy.??Patient?was?referred?to?endocrinology?and?the?nursery rn?recommend ed?biopsy?but?patient?declines. Reiterated?that?best?practice?would?be?to?get?a?biopsy?but?patient?does?not?want ?to?do?this Will?continue?to?monitor?and inform?patient (4) Screening for colon cancer: Code(s): Z12.11 - Encounter for screening for malignant neoplasm of colon Plan: Declines?colonoscopy Agrees?to?Cologuard-ordered (5) Constipation: Code(s): K59.00 - Constipation, unspecified Plan: Increase?water?intake (6) Breast cancer screening by mammogram: Code(s): Z12.31 - Encounter for screening mammogram for malignant neoplasm of breast Plan: Declines?mammogram She?will?let?me?know?if?she?has?any?concerns?regarding?her?breasts (7) Tension headache: Code(s): G44.209 - Tension-type headache, unspecified, not intractable Plan: Headaches?which?extend?from?shoulder?and?neck?muscles Will?trial?a?short?course?of?cyclobenzaprine?muscle?relaxant She?can?continue?diclofenac Recommended?that?she?would?benefit?from?physical?therapy?and?if?headaches?persis t,?we?can?refer?her?for?physical?therapy?subsequently. (8) Adult general medical examination: Code(s): Z00.00 - Encounter for general adult medical examination without abnormal findings Plan: 67-year-old?female?presents?for?an?extended?exam Orders: Orders XR hip LT min 2V Today M25.552 - Pain in left hip Referrals Orthopedics Referral M25.552 - Pain in left hip Coding Level of Care Code Est Pt Level 4 (69665) Diagnoses Hyperlipidemia E78.5 Left hip pain M25.552 Low TSH level R79.89 Screening for colon cancer Z12.11 Constipation K59.00 Breast cancer screening by mammogram Z12.31 Tension headache G44.209 Adult general medical examination Z00.00
== END 2023-08-22 10:16 | disposition home or self-care (01) ==
PROVIDERS: PCP Family Medicine; Visit Provider Family Medicine
DX: E78.5 Hyperlipidemia, unspecified (principal); M25.552 Pain in left hip; R79.89 Other specified abnormal findings of blood chemistry; Z12.11 Encounter for screening for malignant neoplasm of colon; K59.00 Constipation, unspecified; Z12.31 Encounter for screening mammogram for malignant neoplasm of breast; G44.209 Tension-type headache, unspecified, not intractable; Z00.00 Encounter for general adult medical examination without abnormal findings
CPT/HCPCS: 99214

== ENCOUNTER 2023-09-03 08:57 | Outpatient (AMB) | payer MEDICAID, SELFPAY ==
[2023-09-03 09:02] VITALS: BMI 27.9
--- NOTE | 2023-09-03 09:02 | MHC.OFFVIS ---
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 No hx of injections. No hx of PT. No hx of surgery. Patient reports her pain is getting worse over time. She describes her pain as achy in nature. Most of the pain is along the lateral aspect of her hip. She denies any groin pain. She denies any pains radiating down either lower extremity. Allergies flu shot Adverse Reaction (Unknown, Uncoded 08/22/23 09:25) Patient can't remember reaction. Medication List - Last Reconciled 09/03/23 by Tomas Hollis MD acetaminophen 650 mg (2 x 325 mg) PO Q6H PRN 30 days aspirin 81 mg PO DAILY atorvastatin 80 mg PO DAILY 90 days cyclobenzaprine 5 mg PO BID PRN 5 days diclofenac sodium 75 mg PO BID ezetimibe 10 mg PO DAILY 90 days fluticasone propionate 50 mcg/actuation 1 spray intranasal Q12H hydrochlorothiazide 12.5 mg PO QAM lidocaine 5% (Lidoderm) 1 patch topical DAILY 30 days lisinopril 40 mg (2 x 20 mg) PO DAILY 90 days meclizine 25 mg PO BID PRN 30 days paroxetine HCl 40 mg PO QAM spironolactone 25 mg PO DAILY 30 days [facility] Medical History No pertinent past medical history Surgical History History of cardiac cath Hx of appendectomy Family History Mother HTN (hypertension) Father No problems noted. Social History Housing: House Alcohol intake: never Patient Tobacco Use Status: Never used Tobacco e-Cigarette/Vaping Use: Never Used Second Hand Smoke Exposure: No Advance Directives Date on File: 08/15/20 service: No Current occupational status: retired Current occupational exposures/hazards: No Cognitive needs: No Hearing needs: No Vision needs: No Physical Exam Vital Signs: BMI result Body Mass Index 27.9 Const Other: Well-nourished well-developed very friendly female awake alert and oriented x3 in no acute distress Extrem Other: Bilateral lower extremity examination shows good capillary refill, no skin lesions noted, normal sensation light touch Left hip examination shows full range of motion when compared to her right hip, mild discomfort with range of motion, tenderness over her bursa, no overlying skin lesions Results Reviewed Results Reviewed: X-rays of the patient's left hip show mild diffuse joint space narrowing, no acute bony abnormalities Assessment & Plan Assessment & Plan (1) Trochanteric bursitis, left hip: Code(s): M70.62 - Trochanteric bursitis, left hip Plan: Ms. Tan presents with intermittent left hip pain most likely due to greater trochanteric bursitis. I had a lengthy discussion with the patient regarding the treatment options. The patient wishes to hold off on an injection for now. I did give her a prescription for a Medrol Dosepak. Stretching exercises were also discussed at length with the patient. She will follow up with me on an as-needed basis should her symptoms not the plateau at an unacceptable level over the next few weeks. Feel free to call me at any time should questions regarding her orthopedic management arise. Thank you very much for asking me to see this very friendly patient. I spent 22 minutes in reviewing the patient's records and imaging studies, seeing the patient and documenting in the medical record. Orders: Orders XR hip LT min 2V Today M25.552 - Pain in left hip Medications: New methylprednisolone (Medrol (Jacob)) PO PER PKG DIR 21 ea 0RF Coding Level of Care Code New Pt Level 2 (92363) Diagnoses Trochanteric bursitis, left hip M70.62
== END 2023-09-03 09:21 | disposition home or self-care (01) ==
PROVIDERS: PCP Family Medicine; Visit Provider Orthopaedic Surgery
DX: M70.62 Trochanteric bursitis, left hip (principal)
CPT/HCPCS: 99202

== ENCOUNTER 2023-09-03 10:01 | Outpatient (REF) | payer MEDICAID, OTHER, SELFPAY ==
--- NOTE | ~2023-09-03 | XR_ITS ---
EXAMINATION: XR HIP, LEFT CLINICAL INFORMATION: Pain in left hip COMPARISON: None available. TECHNIQUE: Two views of the left hip. FINDINGS: Advanced degenerative changes in the imaged lower lumbar spine with rightward curvature. Moderate degenerative changes with joint space narrowing and hypertrophic changes on single AP view of the right hip. The bones are diffusely demineralized. Moderate degenerative changes in the left hip with superior joint space narrowing and hypertrophic change. Alignment is maintained. XR/XR hip LT min 2V IMPRESSION: 1. Moderate degenerative changes in the left hip. 2. The bones are diffusely demineralized. MRI recommended for further evaluation if there is concern for fracture or other underlying pathology. 2. Advanced degenerative changes in the imaged lower lumbar spine with rightward curvature. Dionicio
== END 2023-09-03 10:02 | disposition home or self-care (01) ==
LOC: HO.HOSX 10:01
PROVIDERS: Visit Provider Orthopaedic Surgery
DX: M70.62 Trochanteric bursitis, left hip (principal); M25.552 Pain in left hip; Z79.899 Other long term (current) drug therapy
CPT/HCPCS: 73502; 99202

== ENCOUNTER 2023-10-09 09:17 | Outpatient (AMB) | payer MEDICAID, SELFPAY ==
--- NOTE | 2023-10-09 09:20 | MHC.OFFVIS ---
Intake Intake Visit Reasons: OV- Lt hip pain Intake Note: The patient presents for follow-up of her left hip discomfort. She states that she got fairly good relief from the Medrol Dosepak. She reports only mild discomfort in her left hip. She denies any weakness in either lower extremity. Allergies flu shot Adverse Reaction (Unknown, Uncoded 10/09/23 09:20) Patient can't remember reaction. Medication List - Last Reconciled 10/09/23 by Tomas Hollis MD acetaminophen 650 mg (2 x 325 mg) PO Q6H PRN 30 days aspirin 81 mg PO DAILY atorvastatin 80 mg PO DAILY 90 days cyclobenzaprine 5 mg PO BID PRN 5 days diclofenac sodium 75 mg PO BID ezetimibe 10 mg PO DAILY 90 days fluticasone propionate 50 mcg/actuation 1 spray intranasal Q12H hydrochlorothiazide 12.5 mg PO QAM lidocaine 5% (Lidoderm) 1 patch topical DAILY 30 days lisinopril 40 mg (2 x 20 mg) PO DAILY 90 days meclizine 25 mg PO BID PRN 30 days paroxetine HCl 40 mg PO QAM spironolactone 25 mg PO DAILY 30 days PFSH Medical History No pertinent past medical history Surgical History History of cardiac cath Hx of appendectomy Family History Mother HTN (hypertension) Father No problems noted. Social History Housing: House Alcohol intake: never Patient Tobacco Use Status: Never used Tobacco e-Cigarette/Vaping Use: Never Used Second Hand Smoke Exposure: No Advance Directives Date on File: 08/15/20 service: No Current occupational status: retired Current occupational exposures/hazards: No Cognitive needs: No Hearing needs: No Vision needs: No Physical Exam Const Other: Well-nourished well-developed very friendly female awake alert and oriented x3 in no acute distress Extrem Other: Bilateral lower extremity examination shows good capillary refill, no skin lesions noted, normal sensation light touch Left hip examination shows full range of motion when compared to her right hip, mild tenderness over her bursa, no overlying skin lesions Assessment & Plan Assessment & Plan (1) Trochanteric bursitis, left hip: Code(s): M70.62 - Trochanteric bursitis, left hip Plan Ms. Tan presents with intermittent discomfort along the lateral aspect of her left hip due to greater trochanteric bursitis. I had a lengthy discussion with the patient regarding the treatment options. We will hold off on a cortisone injection at this time. She will continue with her home stretching program. She will follow up with me on an as-needed basis should her symptoms worsen in any way. Feel free to call me at any time should questions regarding her orthopedic management arise. I spent 20 minutes in reviewing the patient's records and imaging studies, seeing the patient and documenting in the medical record. Coding Level of Care Code Est Pt Level 2 (16731) Diagnoses Trochanteric bursitis, left hip M70.62
== END 2023-10-09 09:37 | disposition home or self-care (01) ==
PROVIDERS: PCP Family Medicine; Visit Provider Orthopaedic Surgery
DX: M70.62 Trochanteric bursitis, left hip (principal)
CPT/HCPCS: 99212

== ENCOUNTER → 2023-10-09 09:17 | Outpatient (BNVA) | payer MEDICAID, SELFPAY | PROVIDERS: PCP Family Medicine; Visit Provider Orthopaedic Surgery | DX: M70.62 Trochanteric bursitis, left hip (principal) | CPT/HCPCS: 99212 ==

== ENCOUNTER 2023-11-25 08:23 | Outpatient (AMB) | payer MEDICAID, SELFPAY ==
[2023-11-25 08:28] VITALS: BP 132/80; PULSE 79; O2SAT 97; BMI 29.1
--- NOTE | 2023-11-25 08:28 | MHC.PC.OV ---
Vital Signs 11/25/23 08:28 Height 5 ft Weight 149 lb BMI 29.1 BP 132/80 Blood Pressure Location Lt brachial Pulse 79 Pulse Source Pulse Oximeter Pulse Oximetry (%) 97 Oxygen Delivery Method Room Air Intake Visit Reasons: f/u hypertension Intake Note: Patient is here to follow up on hypertension today. Allergies flu shot Adverse Reaction (Unknown, Uncoded 11/25/23 08:29) Patient can't remember reaction. Tobacco use date assessed: 11/25/23 Fall risk assessment: No Falls in past year Last assessed Fall Risk: 11/25/23 HPI f/u hypertension HPI Details Pt presents to f/u hypertension. BP today 132/80. She is on lisinopril 40mg, spironolactone 25mg, hydrochlorothiazide 12.mg daily. Pt reports pain at base of L thumb. [facility] Medical History No pertinent past medical history Surgical History History of cardiac cath Hx of appendectomy Family History Mother HTN (hypertension) Father No problems noted. Social History Housing: House Alcohol intake: never Patient Tobacco Use Status: Never used Tobacco e-Cigarette/Vaping Use: Never Used Second Hand Smoke Exposure: No Advance Directives Date on File: 08/15/20 service: No Current occupational status: retired Current occupational exposures/hazards: No Cognitive needs: No Hearing needs: No Vision needs: No Questionnaire PHQ-9 Over the last 2 weeks, how often have you been bothered by any of the following problems? 1. Little interest or pleasure in doing things: not at all 2. Feeling down, depressed, or hopeless: not at all 3. Trouble falling or staying asleep, or sleeping too much: several days 4. Feeling tired or having little energy: several days 5. Poor appetite or overeating: several days 6. Feeling bad about yourself - or that you are a failure or have let yourself or your family down: not at all 7. Trouble concentrating on things, such as reading the newspaper or watching television: nearly every day 8. Moving or speaking so slowly that other people could have noticed. Or the opposite - being so fidgety or restless that you have been moving around a lot more than usual: not at all 9. Thoughts that you would be better off or of hurting yourself in some way: not at all Total score: 6 Source: Developed by Drs. Vinay Payan, Nehal Hardy, Tai Dempsey and colleagues, with an educational trini from [employer]. Thrive Questionnaire Date Thrive assessed: 11/25/23 I am a: Patient What is your living situation today?: I have a steady place to live Within the past 12 months, did the food you bought not last and you didn't have the money to get more?: Never true Within the past 12 months, did you worry whether your food would run out before you got money to buy more?: Never true Do you have trouble paying for medicines?: No Do you have trouble getting transportation to medical appointments?: No Do you have trouble paying your heating and electricity bill?: No Do you have trouble taking care of your child, family member or friend?: No Do you have trouble with day-to-day activities such as bathing, preparing meals, shopping, managing finances, etc.?: Yes Are you currently unemployed and looking for a job?: No Are you interested in more education?: No THRIVE Score: 0 AUDIT C Alcohol Use Questionnaire (AUDIT-C) 1. How often do you have a drink containing alcohol?: Never 3. How often do you have six or more drinks on one occasion?: Never Total Score: 0 MARY-7 AMB Questionnaire MARY-7 Date MARY - 7 assessed: 11/25/23 Feeling nervous, anxious, or on edge: 1 = Several days Not being able to stop or control worryin = Nearly every day Worrying too much about different things: 3 = Nearly every day Trouble relaxin = Nearly every day Being so restless that it is hard to sit still: 0 = Not at all Becoming easily annoyed or irritable: 0 = Not at all Feeling afraid as if something awful might happen: 3 = Nearly every day Total MARY-7 score (0-4 normal; 5-9 mild; 10-14 moderate; 15-21 severe): 13 Source: Developed by Drs. Vinay Payan, Nheal Hardy, Tai Dempsey and colleagues, with an educational trini from [employer]. Review of Systems Const Denies chills, Denies fatigue, Denies fever(s), Denies headache(s) and Denies weakness ENT Denies dizziness and Denies headache(s) Card Denies chest pain, Denies lightheadedness, Denies dyspnea and Denies other (Palpitations) Resp Denies cough, Denies dyspnea, Denies wheezing and Denies other ( shortness of breath) Musc Denies numbness and Denies tingling Neuro Denies dizziness, Denies headache(s), Denies numbness, Denies tingling, Denies paresthesias and Denies weakness Psych Denies anxiety and Denies depression Endo Denies fatigue Aller/Immun Denies wheezing Physical exam (Primary Care) Vital Signs: Last Vital Signs Pulse 79 11/25/23 08:28 BP 132/80 11/25/23 08:28 Pulse Ox 97 11/25/23 08:28 Oxygen Delivery Method Room Air 11/25/23 08:28 BMI result Body Mass Index 29.1 Tobacco/Smoking Status: Tobacco use Status Tobacco use date assessed 11/25/23 11/25/23 08:31 Patient Tobacco Use Status Never used Tobacco 11/25/23 08:31 e-Cigarette/Vaping Use Never Used 11/25/23 08:31 PHQ-9: PHQ-9 Score PHQ-9: Total score 6 11/25/23 08:51 Thrive Assessment: Date of Thrive Assessment Date Thrive assessed 11/25/23 11/25/23 08:38 Const General: no acute distress and well developed Nutritional Appearance: well nourished Orientation/consciousness: patient oriented x3 [facility] Head: Yes normocephalic and Yes atraumatic Eyes General: appearance normal, both eyes and all related structures Pupils: Equal, round and reactive pupils present EOM: EOMs intact bilaterally Resp Effort & Inspection: normal respiratory effort Auscultation: clear to auscultation bilaterally Cardio Rate: regular rate Rhythm: regular rhythm Heart sounds: S1 normal heart sound present, S2 normal heart sound present, no gallops, no murmurs and no rubs Neuro General: patient oriented x3 and gait normal Cranial nerves: Yes Equal, round and reactive pupils present Psych Affect: normal affect Assessment and Plan Assessment & Plan (1) Hypertension: Code(s): I10 - Essential (primary) hypertension Plan: Blood?pressure?is?fairly?well?controlled.??Goal?is?less?than?130/80 No?changes?to?her?blood?pressure?medications?today. Advised?decreased?salt/sodium?in?diet,?exercise,?weight?control? (2) Hand pain: Code(s): M79.643 - Pain in unspecified hand Plan: Pain?and?tenderness?at?base?of?left?thumb?with?a?positive?Mora?sign Likely?de?Quervain?tenosynovitis Patient?would?like?to?start?occupational?therapy.??If?not?improving?will?refer?for?injection?therapy. (3) Coronary artery disease: Code(s): I25.10 - Atherosclerotic heart disease of enterprise coronary artery without angina pectoris Plan: Stable (4) Screening for colon cancer: Code(s): Z12.11 - Encounter for screening for malignant neoplasm of colon Plan: Patient?is?declining?screening?for?colon?cancer?by?colonoscopy?or?a?Cologuard?test (5) Screening for osteoporosis: Code(s): Z13.820 - Encounter for screening for osteoporosis Plan: Dexa scan ordered Orders: Orders XR DEXA axial skeleton Today M81.0 - Age-related osteoporosis without current pathological fracture OT Evaluation and Treatment Today M79.643 - Pain in unspecified hand Coding Level of Care Code Est Pt Level 4 (72074) Diagnoses Hypertension I10 Hand pain M79.643 Coronary artery disease I25.10 Screening for colon cancer Z12.11 Screening for osteoporosis Z13.820
== END 2023-11-25 09:20 | disposition home or self-care (01) ==
PROVIDERS: PCP Family Medicine; Visit Provider Family Medicine
DX: I10 Essential (primary) hypertension (principal); M79.642 Pain in left hand; I25.10 Atherosclerotic heart disease of native coronary artery without angina pectoris; Z12.11 Encounter for screening for malignant neoplasm of colon; Z13.820 Encounter for screening for osteoporosis
CPT/HCPCS: 99214

== ENCOUNTER 2024-01-22 10:07 | Outpatient (AMB) | payer MEDICAID, SELFPAY ==
--- NOTE | 2024-01-22 10:13 | A.OFFVIS_ITS ---
Intake Vital Signs 01/22/24 10:14 Height 5 ft Weight 150 lb 5.684 oz BMI 29.4 BP 172/86 H Blood Pressure Location Lt brachial Position Sitting Pulse 96 Pulse Source Pulse Oximeter Intake Visit Reasons: Nontoxic multinodular goiter Intake Note: Patient present today for Nontoxic multinodular goiter follow up visit. Previously seen by Dr. Rutledge on 01/27/23. Game Room Attendant Required: No Game Room Attendant Name: Patient denied wall attendant Accompanied by: Daughter Allergies flu shot Adverse Reaction (Unknown, Uncoded 01/22/24 10:19) Patient can't remember reaction. HPI HPI Comments History of Present Illness Details 67 YO [place] with a PMHx of HLD with CA D who is seen in consultation at the request of her PCP for a multinodular thyroid. The patient last saw Dr. Rutledge on 01/27/2023 She underwent thyroid US 01/08/2023 with identification of multiple bilateral large nodules. She denies any compressive symptoms currently such as dysphagia or hoarseness of voice. She denies any symptoms of hyper or hypothyroidism. She denies any radiation to the head or the neck. She denies any family history of thyroid cancer. All of her questions were answered. She is in agreement with this plan of care. Thyroid US: 01/08/2023 Right Thyroid Lobe: 4.5 x 2.6 x 3.2 cm, volume 19.6 mL. Parenchyma: The gland echotexture is heterogeneous. Thyroid vascularity is increased. Left Thyroid Lobe: 3.9 x 1.3 x 1.2 cm, volume 3.2 mL. Parenchyma: The gland echotexture is homogeneous. Thyroid vascularity is mildly increased. Isthmus: 1.5 cm in maximum AP dimension. Estimated total number of nodules greater than or equal to 1 cm: 3. Lead Ruby On Rails Developer nodules are described as follows: 1. Location: Right mid. ?? ? Size: 3.6 x 2.6 x 2.8 cm, volume 13.8 mL. ?? ? Nodule characteristics: ?? ? Composition: Mixed cystic and solid (1). ?? ? Echogenicity: Isoechoic (1). ?? ? Shape: Not taller than wide (0). ?? ? Margins: Smooth (0). ?? ? Echogenic Foci: Punctate echogenic foci (3). ?? ? ACR TI-RADS total points: 5 ?? ? ACR TI-RADS category: 4 2. Location: Isthmus inferior. ?? ? Size: 3.0 x 2.0 x 2.6 cm, volume 8.2 mL. ?? ? Nodule characteristics: ?? ? Composition: Solid (2). ?? ? Echogenicity: Hypoechoic (2). ?? ? Shape: Not taller than wide (0). ?? ? Margins: Extrathyroidal extension (3). ?? ? Echogenic Foci: None (0). ?? ? ACR TI-RADS total points: 7 ?? ? ACR TI-RADS category: 5 3. Location: Left lateral. ?? ? Size: 0.9 x 0.5 x 0.5 cm, volume 0.11 mL. ?? ? Nodule characteristics: ?? ? Composition: Solid (2). ?? ? Echogenicity: Isoechoic (1). ?? ? Shape: Not taller than wide (0). ?? ? Margins: Smooth (0). ?? ? Echogenic Foci: None (0). ?? ? ACR TI-RADS total points: 3 ?? ? ACR TI-RADS category: 3 4. Location: Left mid. ?? ? Size: 1.2 x 0.7 x 0.9 cm, volume 0.4 mL. ?? ? Nodule characteristics: ?? ? Composition: Solid (2). ?? ? Echogenicity: Isoechoic (1). ?? ? Shape: Not taller than wide (0). ?? ? Margins: Smooth (0). ?? ? Echogenic Foci: None (0). ?? ? ACR TI-RADS total points: 3 ?? ? ACR TI-RADS category: 3 NODES: No lymphadenopathy is seen in the tissue surrounding the thyroid gland. Labs: Laboratory Tests 01/03/23 01/03/23 12:06 12:06 TSH 1.01 Free T4 0.80 Total T3 120 PFSH Medical History No pertinent past medical history Surgical History History of cardiac cath Hx of appendectomy Family History Mother HTN (hypertension) Father No problems noted. Social History Housing: House Alcohol intake: never Patient Tobacco Use Status: Never used Tobacco e-Cigarette/Vaping Use: Never Used Second Hand Smoke Exposure: No Advance Directives Date on File: 08/15/20 service: No Current occupational status: retired Current occupational exposures/hazards: No Cognitive needs: No Hearing needs: No Vision needs: No Physical Exam Vital Signs: Last Vital Signs Pulse 96 01/22/24 10:14 BP 172/86 H 01/22/24 10:14 BMI result Body Mass Index 29.4 Const Other: Thyroid gland is normal size weighs about 15 g. There are nodules palpable Assessment & Plan Assessment & Plan (1) Thyroid nodule: Code(s): E04.1 - Nontoxic single thyroid nodule Plan: This is a 68-year-old female with a history of multinodular goiter with dominant right mid and inferior isthmus nodules. She appears to be clinically euthyroid Plan is to talk to the patient about going for an FNA of the right mid and inferior isthmus nodule. Will also recheck TSH and free T4. After discussion with patient her daughter who acts as a wall attendant, they asked for a referral to [facility] to have the FNA performed . I referred her to Dr. Vivian Carmona at [facility]. She will follow-up after the above Orders: Orders Free T4 (Free Thyroxine) Today E04.1 - Nontoxic single thyroid nodule Thyroid Stimulating Hormone Today E04.1 - Nontoxic single thyroid nodule Referrals Endocrinology Referral E04.1 - Nontoxic single thyroid nodule Coding Level of Care Code Est Pt Level 3 (52713) Diagnoses Thyroid nodule E04.1
[2024-01-22 10:14] VITALS: BP 172/86; PULSE 96; BMI 29.4
== END 2024-01-22 10:45 | disposition home or self-care (01) ==
PROVIDERS: PCP Family Medicine; Visit Provider Internal Medicine Endocrinology, Diabetes & Metabolism
DX: E04.1 Nontoxic single thyroid nodule (principal)
CPT/HCPCS: 99213

== ENCOUNTER → 2024-01-22 10:07 | Outpatient (BNVA) | payer MEDICAID, SELFPAY | PROVIDERS: PCP Family Medicine; Visit Provider Internal Medicine Endocrinology, Diabetes & Metabolism | DX: E04.1 Nontoxic single thyroid nodule (principal) | CPT/HCPCS: 99212 ==

== ENCOUNTER 2024-01-28 10:01 | Outpatient (AMB) | payer MEDICAID, SELFPAY ==
[2024-01-28 10:09] VITALS: BP 140/60; PULSE 89; BMI 28.9
--- NOTE | 2024-01-28 10:09 | A.OFFVIS_ITS ---
Intake Vital Signs 01/28/24 10:09 Height 5 ft Weight 148 lb 2.41 oz BMI 28.9 BP 140/60 H Blood Pressure Location Lt brachial Position Sitting Pulse 89 Intake Visit Reasons: 1 yr f/up Intake Note: pt its here for 1 yr f/up/ pt states that she its doing fine. Airplane Coverer Required: No Airplane Coverer Name: nadir/daughter Accompanied by: Daughter Allergies flu shot Adverse Reaction (Unknown, Uncoded 01/22/24 10:19) Patient can't remember reaction. Medication List - Last Reconciled 01/28/24 by Amilcar Sutton MD acetaminophen 650 mg (2 x 325 mg) PO Q6H PRN 30 days aspirin 81 mg PO DAILY atorvastatin 80 mg PO DAILY 90 days cyclobenzaprine 5 mg PO BID PRN 5 days diclofenac sodium 75 mg PO BID ezetimibe 10 mg PO DAILY 90 days fluticasone propionate 50 mcg/actuation 1 spray intranasal Q12H hydrochlorothiazide 12.5 mg PO QAM lidocaine 5% (Lidoderm) 1 patch topical DAILY 30 days lisinopril 40 mg (2 x 20 mg) PO DAILY 90 days meclizine 25 mg PO BID PRN 30 days paroxetine HCl 40 mg PO QAM spironolactone 25 mg PO DAILY 30 days HPI HPI Comments History of Present Illness Details Pleasant 67-year-old [place] female with background history of hypertension and 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 She also has some neurological issues ongoing and cognitive problems with some confusion. She was previously on amlodipine but developed lower extremity edema and she will stop the amlodipine. Blood pressure control is good. She is denying any chest pain or shortness of breath. Taking medications regularly. No further chest pains. Taking medications regularly without any issues. Daughter said that patient saw neurology but no obvious cause for the cognitive decline was noticed. Overall she has been stable. She just has numbness in her left little finger. 01/28/24: She was last seen in September 27. She returns for follow-up. Denying any chest pain or shortness of breath. Blood pressure readings have been high. She has background of spontaneous coronary artery dissection. She has background of hyperlipidemia and last LDL cholesterol was 127 with total cholesterol 217, triglycerides 190 and HDL 52 on 08/18/2023. She is denying any symptoms on follow-up. [facility] Medical History No pertinent past medical history Surgical History History of cardiac cath Hx of appendectomy Family History Mother HTN (hypertension) Father No problems noted. Social History Housing: House Alcohol intake: never Patient Tobacco Use Status: Never used Tobacco e-Cigarette/Vaping Use: Never Used Second Hand Smoke Exposure: No Advance Directives Date on File: 08/15/20 service: No Current occupational status: retired Current occupational exposures/hazards: No Cognitive needs: No Hearing needs: No Vision needs: No Review of Systems Const Denies chills, Denies fatigue, Denies fever(s), Denies frequent falls, Denies weakness, Denies weight gain and Denies weight loss ENT Denies dizziness Card Denies chest pain, Denies leg edema, Denies lightheadedness, Denies palpitations, Denies dyspnea and Denies dyspnea on exertion Resp Denies cough, Denies dyspnea and Denies dyspnea on exertion GI Denies hematochezia Musc Denies abnormal gait, Denies muscle weakness, Denies numbness, Denies radiating pain into limb and Denies tingling Neuro Denies abnormal gait, Denies dizziness, Denies frequent falls, Denies numbness, Denies tingling and Denies weakness Endo Denies fatigue and Denies palpitations Physical Exam Vital Signs: Last Vital Signs Pulse 89 01/28/24 10:09 BP 140/60 H 01/28/24 10:09 BMI result Body Mass Index 28.9 GENERAL APPEARANCE: in no acute distress, well developed, well nourished. NECK/THYROID: no carotid bruit, no jugular venous distention. SKIN: no suspicious lesions, warm and dry. HEART: no murmurs, regular rate and rhythm, S1, S2 normal. LUNGS: clear to auscultation bilaterally. ABDOMEN: normal, bowel sounds present, soft, nontender, nondistended. EXTREMITIES: no clubbing, cyanosis, or edema. PERIPHERAL PULSES: equal. NEUROLOGIC: Alert and oriented, power left-sided 4/5 PSYCH: mood/affect full range. Office Procedures EKG Details: Sinus rhythm 89 beats per minute, normal axis, nonspecific ST-T changes. QTC 413 milliseconds. [id number], Complete Assessment & Plan Assessment & Plan (1) Hypertension: Code(s): I10 - Essential (primary) hypertension (2) Coronary artery dissection: Code(s): I25.42 - Coronary artery dissection Plan Pleasant 68 year female who is here for follow-up. She is background history of spontaneous coronary artery dissection. This was conservatively managed. She has elevated blood pressure. She is on multiple medications right now in cluding hydrochlorothiazide 12.5 mg daily, lisinopril 40 mg daily and spironolactone 25 mg daily. Increasing the hydrochlorothiazide to 25 mg once a day. She has nonspecific ST changes on the EKG and has not had any echocardiography and has hypertension also. We will get an echocardiogram on her to assess wall motion and for any structural issues. Last LDL cholesterol was 127. She is on atorvastatin and ezetimibe. We will arrange a fasting lipid panel. Thank you for allowing me to participate in the care of your patient. Please feel free to contact me if you have any questions. Orders: Orders Lipid Panel Today E78.5 - Hyperlipidemia, unspecified CA echo transthorac w con Today I25.42 - Coronary artery dissection Medications: New hydrochlorothiazide 25 mg PO DAILY 90 tabs 3RF Coding Level of Care Code Est Pt Level 4 (81072) Diagnoses Hypertension I10 Coronary artery dissection I25.42 CPT Codes EKG - CPT: 70513-[id number], Complete ([id number])
== END 2024-01-28 10:27 | disposition home or self-care (01) ==
PROVIDERS: PCP Family Medicine; Visit Provider Internal Medicine Cardiovascular Disease
DX: I10 Essential (primary) hypertension (principal); I25.42 Coronary artery dissection
CPT/HCPCS: 93010; 99214

== ENCOUNTER → 2024-01-28 10:01 | Outpatient (BNVA) | payer MEDICAID, SELFPAY | PROVIDERS: PCP Family Medicine; Visit Provider Internal Medicine Cardiovascular Disease | DX: I10 Essential (primary) hypertension (principal); I25.42 Coronary artery dissection; R94.31 Abnormal electrocardiogram [ECG] [EKG] | CPT/HCPCS: 93005; 99212 ==

== ENCOUNTER 2024-02-24 09:08 | Outpatient (REF) | payer MEDICAID, SELFPAY ==
[2024-02-24 10:27] LABS: Free T4 (Free Thyroxine) 0.76 ng/dL (0.71-1.85); Thyroid Stimulating Hormone 1.16 uIU/mL (0.32-4.0)
== END 2024-02-24 09:09 | disposition home or self-care (01) ==
LOC: HO.LAB 09:08
PROVIDERS: PCP Family Medicine; Visit Provider Internal Medicine Endocrinology, Diabetes & Metabolism
DX: E04.1 Nontoxic single thyroid nodule (principal)
CPT/HCPCS: 36415; 84439; 84443

== ENCOUNTER → 2024-02-27 08:40 | Outpatient (REF) | payer MEDICAID, SELFPAY ==
--- NOTE | 2024-02-27 08:42 | CA_ITS ---
Transthoracic Echocardiogram Patient (Last, First, Middle): Agueda Tan, Gender: Female Date of : 1955 Age: 68 Procedure Date: 02/27/2024 Procedure Type: Transthoracic Echocardiogram Location: OP Height: 154. cm Weight: 68.01 kg BSA: 1.66 m2 Heart Rate: 85 bpm BP: 175 / 90 mmHg Gate Shear Operator: KALANI Referring MD: Amilcar Sutton MD Symptoms: I25.42 - Coronary artery dissection Study Quality: Fair ECG Rhythm: Sinus Conclusions: - Normal left ventricular size and systolic function. There is mildly increased left ventricular wall thickness. The visually estimated ejection fraction is between 55-60%. - Normal right ventricular cavity size and systolic function. Findings Left Ventricle Normal left ventricular size and systolic function. There is mildly increased left ventricular wall thickness. The visually estimated ejection fraction is between 55-60%. There is no evidence of regional wall motion abnormalities. Abnormal diastolic function is noted. Spectral Doppler is indicative of an impaired relaxation filling pattern. E/E prime ratio is between 8 and 15 consistent with indeterminate filling pressures. Right Ventricle Normal right ventricular cavity size and systolic function. Atria Both atria are normal in size. Aortic Valve Normal aortic valve structure and function. There is no aortic valve stenosis. There is no aortic valve regurgitation. Mitral Valve Normal mitral valve structure and function. There is no mitral valve regurgitation. There is no mitral valve stenosis. Pulmonic Valve The pulmonic valve is likely normal. Tricuspid Valve Normal tricuspid valve structure. There is no tricuspid valve regurgitation. Tricuspid regurgitation envelope is inadequate for calculation of right ventricular systolic pressure. Normal right atrial pressure. Great Vessels All visible segments of the aorta are normal in size. The visualized portions of the pulmonary artery and branches are normal. Venous The inferior vena cava is normal in size and collapses greater than 50% with inspiration. Pericardium/Pleural There is no evidence of pericardial effusion. Prior Study Comparison No significant change compared to prior study dated: 05/12/2020. Measurements 2D Linear Measurements IVSd: 1.09 0.6-0.9/0.6-1.0 cm LVIDd: 3.36 3.9-5.3/4.2-5.9 cm LVIDd Index: 2.02 2.4-3.2/2.2-3.1 cm/m2 LVIDs: 1.69 2.0-3.6 cm LVPWd: 0.88 0.7-1.1 cm LA Diam: 1.60 2.7-3.8/3.0-4.0 cm LAIDs Index: 0.96 1.5-2.3 cm/m2 LV Mass: 118.03 67-162/88-224 g LV Mass Index: 71.10 43-95/49-115 g/m2 LVOT Diam: 1.90 3.0+(-)1.3 cm 2D Systolic Function EF 4C: 61.00 >55% EF 2C: 67.40 >55% EF BiP: 63.60 >55% Mitral Valve MV Pk E: 0.83 MV PK A: 1.12 MV Decel Time: 251.00 E/A: 0.70 E'Lateral: 10.10 E'Medial: 5.55 E/E' Med: 14.90 E/E' Lat: 8.20 PHT: 73.00 MVA PHT: 3.01 Decel [place]: 3.30 Aortic Valve AoV Pk Deny: 1.37 AoV Mn Deny: 0.95 AoV VTI: 0.28 AoV Pk Grad: 8.00 Aov Mn Grad: 4.00 JOSE Cont.VTI: 2.21 LVOT LVOT Pk Deny: 1.01 LVOT Mn Deny: 0.76 LVOT VTI: 0.22 LVOT Pk Grad: 4.00 LVOT Mn Grad: 3.00 LVOT Diam: 1.90 LVOT Area: 2.84 Diastolic Function MV Pk E: 0.83 MV Pk A: 1.12 E/A: 0.70 E'Medial: 5.55 E/E' Med: 14.90 E' Laterial: 10.10 E/E' Lat: 8.20 Right Ventricle TAPSE (mm): 23.50 TVS' Deny: 12.20 Tricuspid Valve RA Press: 3.00 Great Vessels Aorta Sinus of Valsalva: 3.30 2.0-3.5 cm Ao Asc: 3.20 2.1-3.4 cm Pulmonary Valve PV Pk Deny: 0.90 Peak PV Grad: 3.00 Updated in Other Vendor System with Status of Final Amilcar Sutton MD electronically signed on 02/27/2024 9:56:05 PM with status of Final
== END ==
LOC: HO.CARD 08:40
PROVIDERS: PCP Family Medicine; Visit Provider Internal Medicine Cardiovascular Disease
DX: I25.42 Coronary artery dissection (principal)
CPT/HCPCS: 93306

== ENCOUNTER → 2024-02-27 08:42 | Outpatient (BNV) | payer MEDICAID, SELFPAY | PROVIDERS: PCP Family Medicine; Visit Provider Internal Medicine Cardiovascular Disease | DX: I25.42 Coronary artery dissection (principal) | CPT/HCPCS: 93306 ==

== ENCOUNTER 2024-03-02 08:27 | Outpatient (AMB) | payer MEDICAID, SELFPAY ==
--- NOTE | 2024-03-02 08:32 | MHC.PC.OV ---
Intake Visit Reasons: f/u hypertension Intake Note: Follow up HTN. Daughter would like advise on when to take blood pressure medication throughout the day. Pts bp tends to be lower in the morning. Cloth Covered Helmet Puller Required: Yes Accompanied by: Daughter Allergies flu shot Adverse Reaction (Unknown, Uncoded 03/02/24 08:33) Patient can't remember reaction. Tobacco use date assessed: 03/02/24 Fall risk assessment: No Falls in past year Dental Screening Dental Screen Date: 03/02/24 Did you have a dental visit in the last 12 months?: Yes Did you have a dental problem in the last 6 months where you did not have access to dental care?: No Was dental information given to patient?: Patient has dentist [facility] Medical History No pertinent past medical history Surgical History History of cardiac cath Hx of appendectomy Family History Mother HTN (hypertension) Father No problems noted. Social History Housing: House Alcohol intake: never Patient Tobacco Use Status: Never used Tobacco e-Cigarette/Vaping Use: Never Used Second Hand Smoke Exposure: No Advance Directives Date on File: 08/15/20 service: No Current occupational status: retired Current occupational exposures/hazards: No Cognitive needs: No Hearing needs: No Vision needs: No Questionnaire Thrive Questionnaire Date Thrive assessed: 11/25/23 AUDIT C Alcohol Use Questionnaire (AUDIT-C) 1. How often do you have a drink containing alcohol?: Never 3. How often do you have six or more drinks on one occasion?: Never Total Score: 0 MARY-7 AMB Questionnaire MARY-7 Date MARY - 7 assessed: 11/25/23 Source: Developed by Drs. Vinay Payan, Nehal Hardy, Tai Dempsey and colleagues, with an educational trini from [employer]. Physical exam (Primary Care) Tobacco/Smoking Status: Tobacco use Status Tobacco use date assessed 11/25/23 11/25/23 08:31 Patient Tobacco Use Status Never used Tobacco 11/25/23 08:31 e-Cigarette/Vaping Use Never Used 11/25/23 08:31 Thrive Assessment: Date of Thrive Assessment Date Thrive assessed 11/25/23 11/25/23 08:38 Coding
[2024-03-02 08:41] VITALS: BP 150/76; PULSE 89; RESP 14; TEMP 36.7; O2SAT 95; BMI 28.8
[2024-03-02 08:46] VITALS: BP 142/84
--- NOTE | 2024-03-02 08:46 | A.OFFPC_ITS ---
Vital Signs 03/02/24 08:41 03/02/24 08:46 Height 5 ft Weight 147 lb 6 oz BMI 28.8 BP 150/76 H 142/84 H Blood Pressure Location Lt brachial Lt brachial Position Sitting Sitting Respiration 14 Pulse 89 Pulse Source Pulse Oximeter Temp 98.1 F Temp Source Oral Pulse Oximetry (%) 95 Oxygen Delivery Method Room Air Intake Visit Reasons: f/u hypertension Intake Note: Follow up HTN. Would like to discuss when to take blood pressure medication. Blood pressure tends to be low in the morning. Refill on Meclizine 25 and Aspirin 81. Sample Case Porter Required: Yes Allergies flu shot Adverse Reaction (Unknown, Uncoded 03/02/24 08:49) Patient can't remember reaction. Tobacco use date assessed: 03/02/24 Dental Screening Dental Screen Date: 03/02/24 Did you have a dental visit in the last 12 months?: Yes Did you have a dental problem in the last 6 months where you did not have access to dental care?: No Was dental information given to patient?: Patient has dentist HPI f/u hypertension HPI Details 68 y/o female presents to f/u hypertensi on. Blood pressure today 142/84. Has been elevated before in past office visits. She is on lisinopril 40mg, spironolactone 25mg, HCTZ 25mg daily. Pt notes morning blood pressure have been in the 110/70 range. HPI Comments History of Present Illness Details Documentation assistance for Sergei Delgado MD, was provided by Domenico Serna, General Passenger Agent on 03/02/2024 8:59 AM EST. I, Dr. Delgado, have read, observed, and verified documentation. [facility] Medical History No pertinent past medical history Surgical History History of cardiac cath Hx of appendectomy Family History Mother HTN (hypertension) Father No problems noted. Social History (Updated 03/02/24 @ 08:50 by Jane Loomis CMA) Housing: House Alcohol intake: never Patient Tobacco Use Status: Never used Tobacco e-Cigarette/Vaping Use: Never Used Second Hand Smoke Exposure: No Use of substances other than those prescribed or required for medical reasons: No Advance Directives Date on File: 08/15/20 service: No Current occupational status: retired Current occupational exposures/hazards: No Cognitive needs: No Hearing needs: No Vision needs: No Questionnaire Thrive Questionnaire Date Thrive assessed: 11/25/23 AUDIT C Alcohol Use Questionnaire (AUDIT-C) 1. How often do you have a drink containing alcohol?: Never 3. How often do you have six or more drinks on one occasion?: Never Total Score: 0 MARY-7 AMB Questionnaire MARY-7 Date MARY - 7 assessed: 11/25/23 Source: Developed by Drs. Vinay Payan, Nehal Hardy, Tai Dempsey and colleagues, with an educational trini from [employer]. Review of Systems Const Denies chills, Denies fatigue, Denies fever(s), Denies headache(s) and Denies weakness ENT Denies dizziness and Denies headache(s) Card Denies dyspnea Resp Denies cough, Denies dyspnea, Denies wheezing and Denies other (shortness of breath) Musc Denies numbness and Denies tingling Neuro Denies dizziness, Denies headache(s), Denies numbness, Denies tingling and Denies weakness Psych Denies anxiety and Denies depression Endo Denies fatigue Aller/Immun Denies wheezing Physical exam (Primary Care) Vital Signs: Last Vital Signs Temp 98.1 F 03/02/24 08:41 Pulse 89 03/02/24 08:41 Resp 14 03/02/24 08:41 BP 142/84 H 03/02/24 08:46 Pulse Ox 95 03/02/24 08:41 Oxygen Delivery Method Room Air 03/02/24 08:41 BMI result Body Mass Index 28.8 Tobacco/Smoking Status: Tobacco use Status Tobacco use date assessed 03/02/24 03/02/24 08:50 Patient Tobacco Use Status Never used Tobacco 03/02/24 08:50 e-Cigarette/Vaping Use Never Used 03/02/24 08:50 Thrive Assessment: Date of Thrive Assessment Date Thrive assessed 11/25/23 03/02/24 08:50 Const General: well developed; No acute distress Nutritional Appearance: well nourished Orientation/consciousness: patient oriented x3 HENMT Head: Yes normocephalic and Yes atraumatic Eyes General: appearance normal, both eyes and all related structures Pupils: Equal, round and reactive pupils present EOM: EOMs intact bilaterally Resp Effort & Inspection: normal respiratory effort Auscultation: clear to auscultation bilaterally Cardio Rate: regular rate Rhythm: regular rhythm Heart sounds: S1 normal heart sound present, S2 normal heart sound present, no gallops, no murmurs and no rubs Neuro General: patient oriented x3 and gait normal Cranial nerves: Yes Equal, round and reactive pupils present Psych Affect: normal affect Assessment and Plan Assessment & Plan (1) Hypertension: Code(s): I10 - Essential (primary) hypertension Plan: Blood?pressure?is?still?high?though?improving.??Histo ry?of?coronary?artery?disease?and?aortic?dissection;?goal?is?less?than?130/80. Will?increase?hydrochlorothiazide?further. Hydrate?well?as?her?daughter?notes?that?sometimes?her?blood?pressures?are?low er?and?make?her?feel?tired. (2) Coronary artery disease: Code(s): I25.10 - Atherosclerotic heart disease of [place] coronary artery without angina pectoris Plan: Currently?stable. Continue?aspirin?atorvastatin?and?Zetia. Control?hypertension Follow-up?with??[facility]erman?as?recommended (3) Hyperlipidemia: Code(s): E78.5 - Hyperlipidemia, unspecified Plan: Due?to?recheck?lipids?which?were?high?in?October She?is?on?atorvastatin?and?Zetia Labs?ordered.??She?will?get?these?drawn?fasting?at?her?convenience. Orders: Orders Comprehensive [place]. Panel Fast Today I10 - Essential (primary) hypertension, Z00.00 - Encounter for general adult medical examination without abnormal findings Lipid Panel Today I10 - Essential (primary) hypertension, Z00.00 - Encounter for general adult medical examination without abnormal findings Microalbumin, Random (w Creat) Today I10 - Essential (primary) hypertension Medications: Changed From hydrochlorothiazide 25 mg PO DAILY 90 tabs 3RF To hydrochlorothiazide 50 mg (2 x 25 mg) PO DAILY 90 days 180 tabs 3RF Coding Level of Care Code Est Pt Level 3 (08980) Diagnoses Hypertension I10 Coronary artery disease I25.10 Hyperlipidemia E78.5
== END 2024-03-02 09:26 | disposition home or self-care (01) ==
PROVIDERS: PCP Family Medicine; Visit Provider Family Medicine
DX: I10 Essential (primary) hypertension (principal); I25.10 Atherosclerotic heart disease of native coronary artery without angina pectoris; E78.5 Hyperlipidemia, unspecified
CPT/HCPCS: 99214

== ENCOUNTER 2024-05-21 19:00 | Outpatient (REF) | payer MEDICAID, SELFPAY ==
--- NOTE | ~2024-05-21 | MR_ITS ---
EXAMINATION: MR BRAIN WITHOUT CONTRAST CLINICAL INFORMATION: Memory loss. COMPARISON: CT head 08/20/2021. TECHNIQUE: MRI of the brain was obtained using routine sequences without contrast. FINDINGS: Suboptimal examination in that the T2 FLAIR sequence is degraded by bounce point artifact. There is no intracranial mass effect or midline shift. No abnormal extra-axial collection. Lateral and third ventricles are normal. No hydrocephalus. There are a few scattered nonspecific foci of T2 signal intensity within the periventricular white matter. No acute territorial infarct. No pathological magnetic susceptibility artifact. Intracranial vascular flow voids are grossly maintained. There is no mastoid or middle ear effusion. Mild paranasal sinus mucosal thickening within the ethmoid air cells. Globes and orbits are symmetric. MR/MR head/brain wo con IMPRESSION: There are a few scattered chronic small vessel ischemic changes within the periventricular white matter. Otherwise unremarkable examination. No evidence of acute territorial infarct or hemorrhage. Electronically signed by: Vinay Andino MD 06/20/2024 05:24 PM EDT
== END 2024-05-21 19:01 | disposition home or self-care (01) ==
LOC: HO.MRI 19:00
PROVIDERS: PCP Family Medicine; Visit Provider Psychiatry & Neurology Neurology
DX: G31.84 Mild cognitive impairment of uncertain or unknown etiology (principal)
CPT/HCPCS: 70551

== ENCOUNTER 2024-06-10 08:48 | Outpatient (AMB) | payer MEDICAID, SELFPAY ==
--- NOTE | 2024-06-10 08:48 | A.OFFPC_ITS ---
Vital Signs 06/10/24 08:50 Height 5 ft Weight 144 lb 6 oz BMI 28.2 BP 120/80 Blood Pressure Location Rt brachial Position Sitting Respiration 12 Pulse 82 Pulse Source Pulse Oximeter Temp 98 F Temp Source Tympanic Pulse Oximetry (%) 98 Oxygen Delivery Method Room Air Intake Visit Reasons: f/u hypertension Intake Note: follow up for htn Allergies flu shot Adverse Reaction (Unknown, Uncoded 03/02/24 08:49) Patient can't remember reaction. Tobacco use date assessed: 03/02/24 Dental Screening Dental Screen Date: 03/02/24 HPI f/u hypertension HPI Details 68 y/o female presents to f/u hypertensi on. Had increased her hydrochlorothiazide. Blood pressure today 120/80. She is on lisinopril 40mg, hydrochlorothiazide 50mg daily. HPI Comments History of Present Illness Details Documentation assistance for Sergei Delgado MD, was provided by Domenico Serna, Superintendent Sales on 06/10/2024 at 8:59 AM EST. I, Dr. Delgado, have read, observed, and verified documentation. [facility] Medical History No pertinent past medical history Surgical History History of cardiac cath Hx of appendectomy Family History Mother HTN (hypertension) Father No problems noted. Social History (Updated 03/02/24 @ 08:50 by Jane Loomis CMA) Housing: House Alcohol intake: never Patient Tobacco Use Status: Never used Tobacco e-Cigarette/Vaping Use: Never Used Second Hand Smoke Exposure: No Advance Directives Date on File: 08/15/20 service: No Current occupational status: retired Current occupational exposures/hazards: No Cognitive needs: No Hearing needs: No Vision needs: No Questionnaire Thrive Questionnaire Date Thrive assessed: 11/25/23 MARY-7 AMB Questionnaire MARY-7 Date MARY - 7 assessed: 11/25/23 Source: Developed by Drs. Vinay Payan, Nehal Hardy, Tai Dempsey and colleagues, with an educational trini from [employer]. Review of Systems Const Denies chills, Denies fatigue, Denies fever(s), Denies headache(s) and Denies weakness ENT Denies dizziness and Denies headache(s) Card Denies dyspnea Resp Denies cough, Denies dyspnea, Denies wheezing and Denies other (shortness of breath) Musc Denies numbness and Denies tingling Neuro Denies dizziness, Denies headache(s), Denies numbness, Denies tingling and Denies weakness Psych Denies anxiety and Denies depression Endo Denies fatigue Aller/Immun Denies wheezing Physical exam (Primary Care) Vital Signs: Last Vital Signs Temp 98 F 06/10/24 08:50 Pulse 82 06/10/24 08:50 Resp 12 06/10/24 08:50 BP 120/80 06/10/24 08:50 Pulse Ox 98 06/10/24 08:50 Oxygen Delivery Method Room Air 06/10/24 08:50 BMI result Body Mass Index 28.2 Tobacco/Smoking Status: Tobacco use Status Tobacco use date assessed 03/02/24 06/10/24 08:53 Patient Tobacco Use Status Never used Tobacco 06/10/24 08:53 e-Cigarette/Vaping Use Never Used 06/10/24 08:53 Thrive Assessment: Date of Thrive Assessment Date Thrive assessed 11/25/23 06/10/24 08:53 Const General: well developed; No acute distress Nutritional Appearance: well nourished Orientation/consciousness: patient [facility] x3 [facility]: Yes normocephalic and Yes atraumatic Eyes General: appearance normal, both eyes and all related structures Pupils: Equal, round and reactive pupils present EOM: EOMs intact bilaterally Resp Effort & Inspection: normal respiratory effort Auscultation: clear to auscultation bilaterally Cardio Rate: regular rate Rhythm: regular rhythm Heart sounds: S1 normal heart sound present, S2 normal heart sound present, no gallops, no murmurs and no rubs Neuro General: patient oriented x3 and gait normal Cranial nerves: Yes Equal, round and reactive pupils present Psych Affect: normal affect Assessment and Plan Assessment & Plan (1) Hypertension: Code(s): I10 - Essential (primary) hypertension Plan: Blood?pressure?now?controlled?and?essentially?at?goal?of?less?than?130/80 Continue?current?medication?regimen (2) Hyperlipidemia: Code(s): E78.5 - Hyperlipidemia, unspecified Plan: Lipids?were?elevated?at?last?check She?is?on?atorvastatin?and?Zetia She?did?not?get?her?blood?drawn?to?recheck?lipids Will?have?her?check?lipids?with?her?next?blood?draw Orders: Orders Comprehensive [place]. Panel Fast Today Z00.00 - Encounter for general adult medical examination without abnormal findings Lipid Panel Today Z00.00 - Encounter for general adult medical examination without abnormal findings Microalbumin, Random (w Creat) Today I10 - Essential (primary) hypertension Complete Blood Count Auto Diff Today Z00.00 - Encounter for general adult medical examination without abnormal findings TSH reflex Free T4 Today Z00.00 - Encounter for general adult medical examination without abnormal findings UA and rflx microscopic Today Z00.00 - Encounter for general adult medical examination without abnormal findings Coding Level of Care Code Est Pt Level 3 (19392) Diagnoses Hypertension I10 Hyperlipidemia E78.5
[2024-06-10 08:50] VITALS: BP 120/80; PULSE 82; RESP 12; TEMP 36.6; O2SAT 98; BMI 28.2
== END 2024-06-10 09:07 | disposition home or self-care (01) ==
LOC: HO.HMGFM 08:48
PROVIDERS: PCP Family Medicine; Visit Provider Family Medicine
DX: I10 Essential (primary) hypertension (principal); E78.5 Hyperlipidemia, unspecified
CPT/HCPCS: 99213

== ENCOUNTER 2024-06-14 08:21 | Outpatient (AMB) | payer MEDICAID, SELFPAY ==
[2024-06-14 08:38] VITALS: BP 130/80; PULSE 66; RESP 16; O2SAT 97; BMI 28.1
--- NOTE | 2024-06-14 08:38 | MHC.PC.OV ---
Vital Signs 06/14/24 08:38 Height 5 ft Weight 144 lb BMI 28.1 BP 130/80 Blood Pressure Location Rt brachial Position Sitting Respiration 16 Pulse 66 Pulse Source Pulse Oximeter Pulse Oximetry (%) 97 Oxygen Delivery Method Room Air Intake Visit Reasons: Can schedule disability form appointment Intake Note: disability forms Allergies flu shot Adverse Reaction (Unknown, Uncoded 03/02/24 08:49) Patient can't remember reaction. Tobacco use date assessed: 03/02/24 Dental Screening Dental Screen Date: 03/02/24 HPI Can schedule disability form appointment HPI Details 68 y/o female presents today for disability paperwork. Some cognitive impairments and visual changes. Also some difficulty concentrating. Recent brain MRI in April still pending. HPI Comments History of Present Illness Details Documentation assistance for Sergei Delgado MD, was provided by Domenico Serna, [employer] on 06/14/2024 at 8:45 AM EST. I, Dr. Delgado, have read, observed, and verified documentation. [facility] Medical History No pertinent past medical history Surgical History History of cardiac cath Hx of appendectomy Family History Mother HTN (hypertension) Father No problems noted. Social History (Updated 03/02/24 @ 08:50 by Jane Loomis CMA) Housing: House Alcohol intake: never Patient Tobacco Use Status: Never used Tobacco e-Cigarette/Vaping Use: Never Used Second Hand Smoke Exposure: No Advance Directives Date on File: 08/15/20 service: No Current occupational status: retired Current occupational exposures/hazards: No Cognitive needs: No Hearing needs: No Vision needs: No Questionnaire Thrive Questionnaire Date Thrive assessed: 11/25/23 MARY-7 AMB Questionnaire MARY-7 Date MARY - 7 assessed: 11/25/23 Source: Developed by Drs. Vinay Payan, Nehal Hardy, Tai Dempsey and colleagues, with an educational trini from [employer]. Review of Systems Const Denies chills, Denies fatigue, Denies fever(s), Denies headache(s) and Denies weakness ENT Denies dizziness and Denies headache(s) Card Denies dyspnea Resp Denies cough, Denies dyspnea, Denies wheezing and Denies other (shortness of breath) Musc Denies numbness and Denies tingling Neuro Denies dizziness, Denies headache(s), Denies numbness, Denies tingling and Denies weakness Psych Denies anxiety and Denies depression Endo Denies fatigue Aller/Immun Denies wheezing Physical exam (Primary Care) Vital Signs: Last Vital Signs Pulse 66 06/14/24 08:38 Resp 16 06/14/24 08:38 BP 130/80 06/14/24 08:38 Pulse Ox 97 06/14/24 08:38 Oxygen Delivery Method Room Air 06/14/24 08:38 BMI result Body Mass Index 28.1 Tobacco/Smoking Status: Tobacco use Status Tobacco use date assessed 03/02/24 06/14/24 08:42 Patient Tobacco Use Status Never used Tobacco 06/14/24 08:42 e-Cigarette/Vaping Use Never Used 06/14/24 08:42 Thrive Assessment: Date of Thrive Assessment Date Thrive assessed 11/25/23 06/14/24 08:42 Const General: well developed; No acute distress Nutritional Appearance: well nourished Orientation/consciousness: patient oriented x3 HENMT Head: Yes normocephalic and Yes atraumatic Eyes General: appearance normal, both eyes and all related structures Pupils: Equal, round and reactive pupils present EOM: EOMs intact bilaterally Resp Effort & Inspection: normal respiratory effort Neuro General: patient oriented x3 and gait normal Cranial nerves: Yes Equal, round and reactive pupils present Psych Affect: normal affect Assessment and Plan Assessment & Plan (1) Cognitive changes: Code(s): R41.89 - Other symptoms and signs involving cognitive functions and awareness Plan: Presents?with?her?daughter?for?exceptions?paperwork for German?and?cervix?requirements?of?naturalization?paperwork. Patient?has?cognitive?impairments?affecting?memory?concentration?and?focus. Also?some?visual?impairment. These?impact?her?ability?to?read?right?and?speak?German. These?affect?her?ability?to?learn?and?memory?civics?information. Patient?is?likely?able?to?understand?at?least?some?of?a?lesions?pledge. She?has?been?diagnosed?with?cognitive?impairments?since?08/15/2021. She?has?had?a?head?CT?and?is?followed?by?Neurology. More?recently,?neurology?has?ordered?an?MRI?which?is?pending. (2) Vision changes: Code(s): H53.9 - Unspecified visual disturbance Plan: As?above (3) Difficulty concentrating: Code(s): R41.840 - Attention and concentration deficit Plan: As?above Coding Level of Care Code Est Pt Level 3 (45856) Diagnoses Cognitive changes R41.89 Vision changes H53.9 Difficulty concentrating R41.840
== END 2024-06-14 09:43 | disposition home or self-care (01) ==
PROVIDERS: PCP Family Medicine; Visit Provider Family Medicine
DX: R41.89 Other symptoms and signs involving cognitive functions and awareness (principal); H53.9 Unspecified visual disturbance; R41.840 Attention and concentration deficit
CPT/HCPCS: 99213

== ENCOUNTER 2024-06-14 09:45 | Outpatient (REF) | payer MEDICAID, SELFPAY ==
[2024-06-14 11:45] LABS: MANUAL DIFF FLAG NO
[2024-06-14 11:45] LABS: Appearance Urine Clear; Color Urine Yellow; Glucose Urine UA Negative (Negative); Leukocyte Esterase Urine Small (1+) (Negative); Nitrite Urine Negative (Negative); PH 5.5 (5.0-9.0); UMIC TRIGGER UA YES; Urine Blood Negative (Negative); Urine Ketones Negative (Negative); Urine Protein Negative (Neg-Trace)
[2024-06-14 11:50] LABS: Basophils Percent Auto 0.2 % (0-2); Eosinophils Absolute Auto 0.1 X10*3/uL (0.0-0.4); Hematocrit 44.6 % (37.0-47.0); Hemoglobin 15.3 g/dl (12.0-16.0); Imm Gran Abs Auto 0.01 X10*3/uL (0.00-0.03); Imm Gran Pct Auto 0.2 % (0.0-0.4); Lymphocytes Absolute Auto 1.9 X10*3/uL (1.2-4.9); Lymphocytes Percent Auto 39.4 % (20-40); Mean Corpuscular HGB Conc 34.3 g/dl (31.0-35.0); Mean Corpuscular Hemoglobin 31.4 pg (27.0-33.0); Mean Corpuscular Volume 91.6 fL (80.0-98.0); Mean Platelet Volume 10.2 fL (9.4-12.3); Monocytes Absolute Auto 0.4 X10*3/uL (0.1-1.2); Neutrophils Absolute Auto 2.4 x10*3/uL (2.0-8.3); Neutrophils Percent Auto 50.2 % (45-73); Platelet Count 202 X10*3/uL (160-400); Red Blood Count 4.87 X10*6/uL (4.20-5.50); Red Cell Distribution Width 12.3 % (11.0-16.0); White Blood Count 4.8 X10*3/uL (4.8-10.8)
[2024-06-14 12:03] LABS: Bacteria Urine None Seen (None Seen); Hyaline Casts Urine 0-2 /LPF (0-2); RBC Urine 0-2 /HPF (0-2); WBC Urine 0-5 /HPF (0-5)
[2024-06-14 12:27] LABS: Creatinine Urine 100.31 mg/dL; Microalbum/Creatinine Ratio Ur 6.9 ug/mg cr (<30)
[2024-06-14 12:40] LABS: Alanine Aminotransferase 32 U/L (0-31); Albumin Level 4.3 g/dL (3.5-5.0); Alkaline Phosphatase 109 U/L (39-117); Anion Gap 16 (12-20); Aspartate Amino Transferase 27 U/L (5-31); Bilirubin Total 0.5 mg/dL (0.0-1.0); Blood Urea Nitrogen 18 mg/dL (9-16); Calcium 9.8 mg/dL (8.4-10.2); Carbon Dioxide 22 mmol/L (22-29); Chloride 108 mmol/L (96-108); Cholesterol 152 mg/dL (<200); Estimated Glomerular Filt Rate > 60; Glucose Fasting 88 mg/dL (60-99); HDL Cholesterol 58 mg/dL (>40); LDL Cholesterol Calculated 75 mg/dL (<100); Potassium 3.9 mmol/L (3.3-5.1); Sodium 142 mmol/L (135-145); Total Protein 7.6 g/dL (6.5-8.0); Triglycerides 99 mg/dL (<150)
[2024-06-14 12:50] LABS: TSH reflex Free T4 0.79 uIU/mL (0.32-4.0)
== END 2024-06-14 09:46 | disposition home or self-care (01) ==
LOC: HO.WFDLDS 09:45
PROVIDERS: Visit Provider Family Medicine
DX: Z00.00 Encounter for general adult medical examination without abnormal findings (principal); I10 Essential (primary) hypertension
CPT/HCPCS: 36415; 80053; 80061; 81001; 82043; 82570; 84443; 85025

== ENCOUNTER 2024-07-09 08:51 | Outpatient (AMB) | payer MEDICAID, SELFPAY ==
[2024-07-09 08:53] VITALS: BP 164/82; PULSE 85; BMI 28.4
--- NOTE | 2024-07-09 08:53 | MHC.OFFVIS ---
Vital Signs 07/09/24 08:53 07/09/24 09:28 Height 5 ft Weight 145 lb 8.081 oz BMI 28.4 BP 164/82 H 160/82 H Blood Pressure Location Lt brachial Rt brachial Position Sitting Pulse 85 Pulse Source Pulse Oximeter Intake Visit Reasons: Nontoxic single thyroid nodule-confirmed Intake Note: New patient present today for Nontoxic single thyroid nodule office visit. Obstetric Anaesthetist Required: Yes Obstetric Anaesthetist Services: Obstetric Anaesthetist Offered & Declined Accompanied by: Daughter Allergies flu shot Adverse Reaction (Unknown, Uncoded 07/09/24 08:56) Patient can't remember reaction. Medication List - Last Reconciled 07/09/24 by Leidy Faulkner MD aspirin 81 mg PO DAILY atorvastatin 80 mg PO DAILY 90 days cyclobenzaprine 5 mg PO BID PRN 5 days diclofenac sodium 75 mg PO BID ezetimibe 10 mg PO DAILY 90 days fluticasone propionate 50 mcg/actuation 1 spray intranasal Q12H hydrochlorothiazide 50 mg (2 x 25 mg) PO DAILY 90 days lidocaine 5% (Lidoderm) 1 patch topical DAILY 30 days lisinopril 40 mg (2 x 20 mg) PO DAILY 90 days meclizine 25 mg PO BID PRN 30 days paroxetine HCl 40 mg PO QAM spironolactone 25 mg PO DAILY 30 days HPI Comments Details: 68 YO [place] with a PMHx of HLD with CAD who is seen for follow up of multinodular thyroid. The patient last saw Dr. Rutledge on 01/27/[address] Saldaña 02/17. HPI from prior visit She underwent thyroid US 01/08/2023 with identification of multiple bilateral large nodules. Patient currently denies heat or cold intolerance, diarrhea or constipation, hair loss, palpitation, anxiety, weight changes, changes in appearance of eyes or vision changes, , increased diaphoresis or dry skin. ? Does complain of low energy low mood does have mild chronic tremors Patient denies any difficulty swallowing, pain on swallowing or voice changes or difficulty breathing. Patient denies any history of childhood neck radiation. Denies having ever used lithium, amiodarone or biotin supplements. Patient denies any family history of thyroid cancer. Grandmother: had thyroid nodules Review of systems Constitutional: no fevers, chills or weight loss HEENT: no changes in vision Cardiac: No chest pain, discomfort or palpitations. Pulmonary: No SOB GI:No abdominal pain, no nausea or vomiting, no anorexia, no blood in stool : no burning micturition, dysuria or increase in urinary frequency Physical exam General: sitting comfortably in no acute distress HEENT: normocephalic/atraumatic, EOM intact, moist oral mucosa Neck: Palpable 3 cm right-sided nodule and palpable 3 cm isthmus nodule Cardiac: normal heart sounds Pulm: normal breath sounds B/L, no added breath sounds Abd: not distended, no tenderness Extremities: no edema, no signs of myxedema Neuro: AAO x3, Speech: normal, no facial droop, moving all 4 extremities PFSH Medical History No pertinent past medical history Surgical History History of cardiac cath Hx of appendectomy Family History Mother HTN (hypertension) Father No problems noted. Social History Housing: House Alcohol intake: never Patient Tobacco Use Status: Never used Tobacco e-Cigarette/Vaping Use: Never Used Second Hand Smoke Exposure: No Advance Directives Date on File: 08/15/20 service: No Current occupational status: retired Current occupational exposures/hazards: No Cognitive needs: No Hearing needs: No Vision needs: No Physical Exam Vital Signs: Last Vital Signs Pulse 85 07/09/24 08:53 BP 160/82 H 07/09/24 09:28 BMI result Body Mass Index 28.4 Results Reviewed Results Reviewed: Laboratory Tests 11/26/21 01/03/23 08/18/23 10:15 12:06 10:32 TSH 0.48 1.01 0.25 L Free T4 0.80 0.85 Total T3 120 02/24/24 06/14/24 09:20 09:46 TSH 1.16 0.79 Free T4 0.76 Total T3 US THYROID 01/16 I reviewed the images myself which showed the right dominant 3.6 cm nodule, mixed cystic solid, with mostly a cystic component however does have mixed a echogenic foci, making it TR 4, or SAM high-suspicion category greater than 50% chance of malignancy. Also showed the isthmus 3 cm nodule which has been noted to have extrathyroidal extension, also making it SAM high suspicion category, TR 5 nodule with greater than 50% chance of malignancy. The left dominant 1.2 cm nodule is solid, isoechoic TR 3 nodule. This is SAM low suspicion with 5-10% chance of malignancy however parathyroids does not meet criteria for biopsy. CLINICAL INFORMATION: Localized swelling, mass and lump, neck. COMPARISON: None available. TECHNIQUE: Linear transducer grayscale and color Doppler examination with attention to the region of the thyroid. FINDINGS: SIZE: Measurements of the thyroid lobes and nodules are given in sagittal, anteroposterior and transverse dimensions respectively. Right Thyroid Lobe: 4.5 x 2.6 x 3.2 cm, volume 19.6 mL. Parenchyma: The gland echotexture is heterogeneous. Thyroid vascularity is increased. Left Thyroid Lobe: 3.9 x 1.3 x 1.2 cm, volume 3.2 mL. Parenchyma: The gland echotexture is homogeneous. Thyroid vascularity is mildly increased. Isthmus: 1.5 cm in maximum AP dimension. Estimated total number of nodules greater than or equal to 1 cm: 3. [employer] nodules are described as follows: 1. Location: Right mid. Size: 3.6 x 2.6 x 2.8 cm, volume 13.8 mL. Nodule characteristics: Composition: Mixed cystic and solid (1). Echogenicity: Isoechoic (1). Shape: Not taller than wide (0). Margins: Smooth (0). Echogenic Foci: Punctate echogenic foci (3). ACR TI-RADS total points: 5 ACR TI-RADS category: 4 2. Location: Isthmus inferior. Size: 3.0 x 2.0 x 2.6 cm, volume 8.2 mL. Nodule characteristics: Composition: Solid (2). Echogenicity: Hypoechoic (2). Shape: Not taller than wide (0). Margins: Extrathyroidal extension (3). Echogenic Foci: None (0). ACR TI-RADS total points: 7 ACR TI-RADS category: 5 3. Location: Left lateral. Size: 0.9 x 0.5 x 0.5 cm, volume 0.11 mL. Nodule characteristics: Composition: Solid (2). Echogenicity: Isoechoic (1). Shape: Not taller than wide (0). Margins: Smooth (0). Echogenic Foci: None (0). ACR TI-RADS total points: 3 ACR TI-RADS category: 3 4. Location: Left mid. Size: 1.2 x 0.7 x 0.9 cm, volume 0.4 mL. Nodule characteristics: Composition: Solid (2). Echogenicity: Isoechoic (1). Shape: Not taller than wide (0). Margins: Smooth (0). Echogenic Foci: None (0). ACR TI-RADS total points: 3 ACR TI-RADS category: 3 NODES: No lymphadenopathy is seen in the tissue surrounding the thyroid gland. US/US thyroid IMPRESSION: 1. Bilateral thyroid nodules are seen, as detailed. The 3.6 cm and 3.0 cm in maximal diameter right thyroid lobe and thyroid isthmus nodules meet ACR biopsy criteria and are amenable to ultrasound-guided biopsy, if clinically indicated and not already performed. 2. There is heterogeneous thyroid echotexture and increased vascularity, which can be associated with thyroiditis. Assessment & Plan Assessment & Plan (1) Multiple thyroid nodules: Code(s): E04.2 - Nontoxic multinodular goiter Category: Medical Plan: Patient with no family history of thyroid cancer, with no personal history of head or neck radiation who is coming in today for follow up of multiple thyroid nodules. She had an ultrasound in December of 2022 . I reviewed the images myself which showed multiple bilateral thyroid nodules with a right dominant 3.6 cm nodule which is mixed cystic solid with mostly cystic component but has punctate echogenic foci the solid component making it a TR 4 nodule, and SAM high suspicion category, with a greater than 50% chance of malignancy, and she has a another 3 cm dominant isthmus nodule which is solid, hypoechoic with possible extrathyroidal extension, TR 5 category, SAM high suspicion nodule with greater than 50% chance of malignancy. She has a another left 1.2 cm nodule which is TR 3 category, and does not meet criteria for FNA. Per SAM this is a low suspicion nodule with a 5-10% chance of malignancy. At this time she meets criteria for FNA biopsy of the right 3.6 cm in the isthmus 3 cm nodules. She has no compressive symptoms. I explained that it is common to have thyroid nodules. About 95% of the time these nodules are benign. However if the nodule is > 1 cm in size or suspicious on ultrasound then a fine need aspiration biopsy is recommended. We discussed that a FNAB involves 4-5 passes with a small gauge needle and material obtained is sent off for cytology.If the cytopathology is benign then the nodule will be followed annually with repeat ultrasounds. However if it is suspicious or malignant, we will need to discuss further management. Indeterminate cytology can be further investigated with repeat FNA, genetic testing or empiric lobectomy. Malignant cytology is managed with either lobectomy or total thyroidectomy. We discussed briefly that thyroid cancer is, in most patients, an indolent disease that does not affect mortality. We will arrange for FNA at next available opening of the right 3.6 cm mid lobe nodule as well as the inferior isthmus 3 cm nodule and patient will follow up with me in clinic thereafter for results and further decision making. Plan: -schedule thyroid biopsy of the right 3.6 cm mid lobe nodule as well as the inferior isthmus 3 cm nodule -follow up in 1-2 weeks after biopsy to discuss results Plan I spent 30 minutes in reviewing the record, seeing the patient and documenting in the medical record. Orders: Orders US biopsy thyroid Today E04.2 - Nontoxic multinodular goiter Patient Instructions: We will book you for a thyroid biopsy of a right 3.6 cm nodule and a middle isthmus 3 cm nodule in your thyroid And an appointment in 1 -2 weeks to discuss results Coding Level of Care Code Est Pt Level 4 (98236) Diagnoses Multiple thyroid nodules E04.2 Time Spent (min) 30
[2024-07-09 09:28] VITALS: BP 160/82
== END 2024-07-09 09:43 | disposition home or self-care (01) ==
PROVIDERS: PCP Family Medicine; Visit Provider Student in an Organized Health Care Education/Training Program
DX: E04.2 Nontoxic multinodular goiter (principal)
CPT/HCPCS: 99214

== ENCOUNTER → 2024-07-09 08:51 | Outpatient (BNVA) | payer MEDICAID, SELFPAY | PROVIDERS: PCP Family Medicine; Visit Provider Student in an Organized Health Care Education/Training Program | DX: E04.2 Nontoxic multinodular goiter (principal) | CPT/HCPCS: 99212 ==

== ENCOUNTER 2024-07-14 07:59 | Outpatient (REF) | payer MEDICAID, SELFPAY ==
--- NOTE | 2024-07-14 08:59 | PM.PROC ---
Brief Operative Note Date of procedure: 07/14/24 Pre-op diagnosis: right mid 3.6 cm nodule and isthmus 3 cm nodule thyroid nodule Post-op diagnosis: same Procedure: THYROID FINE NEEDLE ASPIRATION PROCEDURE NOTE ? PROCEDURE PERFORMED: Ultrasound-guided FNA of thyroid nodules ? OPERATORS: Dr. Leidy Faulkner ? INDICATION: right mid 3.6 cm nodule and isthmus 3 cm nodule thyroid nodules; FNA performed to assess for malignancy ? DESCRIPTION OF PROCEDURE: The indications for FNA (to assess for malignancy) were reviewed with the patient in detail. Potential complications (e.g., bleeding, infection, damage to local structures, absence of clear diagnosis after FNA) were reviewed. Alternatives to FNA including conservative observation or surgery were described. The patient understood and agreed to proceed. This was documented by the signing of the written informed consent form. A time-out was performed to confirm the patient's identity and the site of planned FNA. The nodule of interest was identified using ultrasound (14 MHz linear array probe). The site of each FNA was then draped in the usual fashion and carefully cleaned and prepared using alcohol swabs. The site of needle insertion for each nodule was iced and sprayed with numbing spray. Under ultrasound guidance, _4_ passes were performed using a 1.5-inch, 22-gauge needle, and sample was obtained via capillary action for each each nodule that was biopsied. The needle tip was clearly visualized to be within the nodule at the time of sampling for 4__ of 4__ passes for each of the nodules The patient tolerated the procedure well. There were no immediate complications. A small adhesive bandage was applied, and the patient was advised to take acetaminophen (rather than NSAIDs) for any discomfort and to report any signs of inflammation/infection or marked swelling. IMPRESSION: Technically successful ultrasound-guided fine needle aspiration of right mid 3.6 cm nodule and isthmus 3 cm nodule thyroid FNA biopsy. PLAN: The patient was advised that I will provide follow-up regarding the cytology result and any subsequent plans. Leidy Faulkner MD Condition: stable Disposition: same day
== END 2024-07-14 08:00 | disposition home or self-care (01) ==
LOC: HO.US 07:59
PROVIDERS: PCP Family Medicine; Visit Provider Student in an Organized Health Care Education/Training Program
DX: E04.2 Nontoxic multinodular goiter (principal)
CPT/HCPCS: 10005; 10006; 88173; 88305

== ENCOUNTER → 2024-07-14 07:59 | Outpatient (BNV) | payer MEDICAID, SELFPAY | PROVIDERS: PCP Family Medicine; Visit Provider Student in an Organized Health Care Education/Training Program | DX: E04.2 Nontoxic multinodular goiter (principal) | CPT/HCPCS: 10005; 10006 ==

== ENCOUNTER 2024-07-28 13:55 | Outpatient (AMB) | payer MEDICAID, SELFPAY ==
[2024-07-28 14:00] VITALS: BP 174/90; PULSE 95; BMI 28.5
--- NOTE | 2024-07-28 14:00 | A.OFFVIS_ITS ---
Vital Signs 3 07/28/24 14:00 07/28/24 14:20 Height 5 ft Weight 145 lb 11.609 oz BMI 28.5 BP 174/90 H 145/70 H Blood Pressure Location Lt brachial Rt brachial Position Sitting Pulse 95 Pulse Source Pulse Oximeter Intake Visit Reasons: biopsy f/u-conf Intake Note: Patient present today for biopsy follow up visit. Crayon Sawyer Required: Yes Crayon Sawyer Language: Cameroonian Crayon Sawyer Services: Crayon Sawyer Offered & Declined Accompanied by: Daughter Allergies flu shot Adverse Reaction (Unknown, Uncoded 07/28/24 14:03) Patient can't remember reaction. HPI Comments Details: 68 YO [place] with a PMHx of HLD with CAD who is seen for follow up of multinodular thyroid. Here today to discuss results of thyroid biopsy HPI from prior visit She underwent thyroid US 01/08/2023 with identification of multiple bilateral large nodules. US THYROID 01/16 I reviewed the images myself which showed the right dominant 3.6 cm nodule, mixed cystic solid, with mostly a cystic component however does have mixed a echogenic foci, making it TR 4, or SAM high-suspicion category greater than 50% chance of malignancy. Also showed the isthmus 3 cm nodule which has been noted to have extrathyroidal extension, also making it SAM high suspicion category, TR 5 nodule with greater than 50% chance of malignancy. The left dominant 1.2 cm nodule is solid, isoechoic TR 3 nodule. This is SAM low suspicion with 5-10% chance of malignancy does not meet criteria for biopsy. Underwent FNA 07/14/24 of the right 3.6 cm and isthmus 3 cm nodules with benign cytology ([place] II) Patient currently denies heat or cold intolerance, diarrhea or constipation, hair loss, palpitation, anxiety, weight changes, changes in appearance of eyes or vision changes, , increased diaphoresis or dry skin. ? Does complain of low energy low mood does have mild chronic tremors Patient denies any difficulty swallowing, pain on swallowing or voice changes or difficulty breathing. Patient denies any history of childhood neck radiation. Denies having ever used lithium, amiodarone or biotin supplements. Patient denies any family history of thyroid cancer. Grandmother: had thyroid nodules Review of systems Constitutional: no fevers, chills or weight loss HEENT: no changes in vision Cardiac: No chest pain, discomfort or palpitations. Pulmonary: No SOB GI:No abdominal pain, no nausea or vomiting, no anorexia, no blood in stool : no burning micturition, dysuria or increase in urinary frequency Physical exam General: sitting comfortably in no acute distress HEENT: normocephalic/atraumatic,, moist oral mucosa Neck: Palpable 3 cm right-sided nodule and palpable 3 cm isthmus nodule Cardiac: normal heart sounds Pulm: normal breath sounds B/L, no added breath sounds Abd: not distended, no tenderness Extremities: no edema, no signs of myxedema Neuro: AAO x3, Speech: normal, no facial droop, moving all 4 extremities PFSH Medical History No pertinent past medical history Surgical History History of cardiac cath Hx of appendectomy Family History Mother HTN (hypertension) Father No problems noted. Social History Housing: House Alcohol intake: never Patient Tobacco Use Status: Never used Tobacco e-Cigarette/Vaping Use: Never Used Second Hand Smoke Exposure: No Advance Directives Date on File: 08/15/20 service: No Current occupational status: retired Current occupational exposures/hazards: No Cognitive needs: No Hearing needs: No Vision needs: No Physical Exam Vital Signs: Last Vital Signs Pulse 95 07/28/24 14:00 BP 174/90 H 07/28/24 14:00 BMI result Body Mass Index 28.5 Results Reviewed Results Reviewed: Laboratory Tests 11/26/21 01/03/23 08/18/23 10:15 12:06 10:32 TSH 0.48 1.01 0.25 L Free T4 0.80 0.85 Total T3 120 02/24/24 06/14/24 09:20 09:46 TSH 1.16 0.79 Free T4 0.76 Total T3 US THYROID 01/16 I reviewed the images myself which showed the right dominant 3.6 cm nodule, mixed cystic solid, with mostly a cystic component however does have mixed a echogenic foci, making it TR 4, or SAM high-suspicion category greater than 50% chance of malignancy. Also showed the isthmus 3 cm nodule which has been noted to have extrathyroidal extension, also making it SAM high suspicion category, TR 5 nodule with greater than 50% chance of malignancy. The left dominant 1.2 cm nodule is solid, isoechoic TR 3 nodule. This is SAM low suspicion with 5-10% chance of malignancy however parathyroids does not meet criteria for biopsy. CLINICAL INFORMATION: Localized swelling, mass and lump, neck. COMPARISON: None available. TECHNIQUE: Linear transducer grayscale and color Doppler examination with attention to the region of the thyroid. FINDINGS: SIZE: Measurements of the thyroid lobes and nodules are given in sagittal, anteroposterior and transverse dimensions respectively. Right Thyroid Lobe: 4.5 x 2.6 x 3.2 cm, volume 19.6 mL. Parenchyma: The gland echotexture is heterogeneous. Thyroid vascularity is increased. Left Thyroid Lobe: 3.9 x 1.3 x 1.2 cm, volume 3.2 mL. Parenchyma: The gland echotexture is homogeneous. Thyroid vascularity is mildly increased. Isthmus: 1.5 cm in maximum AP dimension. Estimated total number of nodules greater than or equal to 1 cm: 3. Blanket Winder Operator nodules are described as follows: 1. Location: Right mid. Size: 3.6 x 2.6 x 2.8 cm, volume 13.8 mL. Nodule characteristics: Composition: Mixed cystic and solid (1). Echogenicity: Isoechoic (1). Shape: Not taller than wide (0). Margins: Smooth (0). Echogenic Foci: Punctate echogenic foci (3). ACR TI-RADS total points: 5 ACR TI-RADS category: 4 2. Location: Isthmus inferior. Size: 3.0 x 2.0 x 2.6 cm, volume 8.2 mL. Nodule characteristics: Composition: Solid (2). Echogenicity: Hypoechoic (2). Shape: Not taller than wide (0). Margins: Extrathyroidal extension (3). Echogenic Foci: None (0). ACR TI-RADS total points: 7 ACR TI-RADS category: 5 3. Location: Left lateral. Size: 0.9 x 0.5 x 0.5 cm, volume 0.11 mL. Nodule characteristics: Composition: Solid (2). Echogenicity: Isoechoic (1). Shape: Not taller than wide (0). Margins: Smooth (0). Echogenic Foci: None (0). ACR TI-RADS total points: 3 ACR TI-RADS category: 3 4. Location: Left mid. Size: 1.2 x 0.7 x 0.9 cm, volume 0.4 mL. Nodule characteristics: Composition: Solid (2). Echogenicity: Isoechoic (1). Shape: Not taller than wide (0). Margins: Smooth (0). Echogenic Foci: None (0). ACR TI-RADS total points: 3 ACR TI-RADS category: 3 NODES: No lymphadenopathy is seen in the tissue surrounding the thyroid gland. US/US thyroid IMPRESSION: 1. Bilateral thyroid nodules are seen, as detailed. The 3.6 cm and 3.0 cm in maximal diameter right thyroid lobe and thyroid isthmus nodules meet ACR biopsy criteria and are amenable to ultrasound-guided biopsy, if clinically indicated and not already performed. 2. There is heterogeneous thyroid echotexture and increased vascularity, which can be associated with thyroiditis. Assessment & Plan Assessment & Plan (1) Multiple thyroid nodules: Code(s): E04.2 - Nontoxic multinodular goiter Category: Medical Plan: Patient with no family history of thyroid cancer, with no personal history of head or neck radiation who is coming in today for follow up of multiple thyroid nodules to discuss the results of FNA. She had an ultrasound in December of 2022 . I reviewed the images myself which showed multiple bilateral thyroid nodules with a right dominant 3.6 cm nodule which is mixed cystic solid with mostly cystic component but has punctate echogenic foci the solid component making it a TR 4 nodule, and SAM high suspicion category, with a greater than 50% chance of malignancy, and she has a another 3 cm dominant isthmus nodule which is solid, hypoechoic with possible extrathyroidal extension, TR 5 category, SAM high suspicion nodule with greater than 50% chance of malignancy. She has a another left 1.2 cm nodule which is TR 3 category, and does not meet criteria for FNA. Per SAM this is a low suspicion nodule with a 5-10% chance of malignancy. Underwent FNA biopsy of the right 3.6 cm in the isthmus 3 cm nodules on 07/14/24 which showed benign cytology for both ([place] category 2). She has no compressive symptoms. I explained to patient benign results reduces probability of malignancy to less than 3 %. Given that her nodules are TR 4/Tr 5 category nodule, we will plan to repeat ultrasound of the thyroid in 6 months which would be 2 years from her last one, but holding off on repeat ultrasound right now as she just had biopsy. . Plan: -ordered TSH, free T4 to be done before follow up next year -ultrasound of the thyroid ordered for January 2025 prior to follow up in February 2025 Patient verbalized understanding and agreeable with plan. All questions answered. Plan see above Orders: Orders 2 Thyroid Stimulating Hormone 01/25/25 E04.1 - Nontoxic single thyroid nodule Free T4 (Free Thyroxine) 01/25/25 E04.1 - Nontoxic single thyroid nodule US thyroid 01/25/25 E04.1 - Nontoxic single thyroid nodule Patient Instructions: Do thyroid blood work and ultrasound in January 2025 Follow up with me in February 2025 to discuss results Coding Level of Care Code Est Pt Level 3 (38872) Diagnoses Multiple thyroid nodules E04.2
[2024-07-28 14:20] VITALS: BP 145/70
== END 2024-07-28 14:21 | disposition home or self-care (01) ==
PROVIDERS: PCP Family Medicine; Visit Provider Student in an Organized Health Care Education/Training Program
DX: E04.2 Nontoxic multinodular goiter (principal)
CPT/HCPCS: 99213

== ENCOUNTER → 2024-07-28 13:55 | Outpatient (BNVA) | payer MEDICAID, SELFPAY | PROVIDERS: PCP Family Medicine; Visit Provider Student in an Organized Health Care Education/Training Program | DX: E04.2 Nontoxic multinodular goiter (principal) | CPT/HCPCS: 99212 ==

== ENCOUNTER 2024-10-01 11:09 | Outpatient (AMB) | payer MEDICAID, SELFPAY ==
--- NOTE | 2024-10-01 11:35 | MHC.PC.OV ---
Vital Signs 10/01/24 11:36 Height 5 ft Weight 147 lb 4 oz BMI 28.8 BP 150/70 H Blood Pressure Location Lt brachial Position Sitting Respiration 14 Pulse 76 Pulse Source Pulse Oximeter Pulse Oximetry (%) 97 Oxygen Delivery Method Room Air Intake Visit Reasons: fu high blood pressure Intake Note: f/u HTN Allergies flu shot Adverse Reaction (Unknown, Uncoded 10/01/24 11:35) Patient can't remember reaction. Medication List - Last Reconciled 10/01/24 by Sergei Delgado MD aspirin 81 mg PO DAILY atorvastatin 80 mg PO DAILY 90 days cyclobenzaprine 5 mg PO BID PRN 5 days diclofenac sodium 75 mg PO BID ezetimibe 10 mg PO DAILY 90 days fluticasone propionate 50 mcg/actuation 1 spray intranasal Q12H hydrochlorothiazide 50 mg (2 x 25 mg) PO DAILY 90 days lidocaine 5% (Lidoderm) 1 patch topical DAILY 30 days lisinopril 40 mg (2 x 20 mg) PO DAILY 90 days meclizine 25 mg PO BID PRN 30 days paroxetine HCl 40 mg PO QAM spironolactone 25 mg PO DAILY 30 days Tobacco use date assessed: 03/02/24 Dental Screening Dental Screen Date: 03/02/24 HPI fu high blood pressure HPI Details 69 y/o female presents to f/u hypertension. Blood pressure today 150/70. She is on lisinopril 40mg, HCTZ 50mg daily. [facility] Medical History No pertinent past medical history Surgical History History of cardiac cath Hx of appendectomy Family History Mother HTN (hypertension) Father No problems noted. Social History Housing: House Alcohol intake: never Patient Tobacco Use Status: Never used Tobacco e-Cigarette/Vaping Use: Never Used Second Hand Smoke Exposure: No Advance Directives Date on File: 08/15/20 service: No Current occupational status: retired Current occupational exposures/hazards: No Cognitive needs: No Hearing needs: No Vision needs: No Questionnaire PHQ-9 Over the last 2 weeks, how often have you been bothered by any of the following problems? 1. Little interest or pleasure in doing things: several days 2. Feeling down, depressed, or hopeless: several days 3. Trouble falling or staying asleep, or sleeping too much: more than half the days 4. Feeling tired or having little energy: more than half the days 5. Poor appetite or overeating: several days 6. Feeling bad about yourself - or that you are a failure or have let yourself or your family down: not at all 7. Trouble concentrating on things, such as reading the newspaper or watching television: more than half the days 8. Moving or speaking so slowly that other people could have noticed. Or the opposite - being so fidgety or restless that you have been moving around a lot more than usual: not at all 9. Thoughts that you would be better off or of hurting yourself in some way: not at all Total score: 9 Source: Developed by Drs. Vinay Payan, Nehal Hardy, Tai Dempsey and colleagues, with an educational trini from [employer]. Thrive Questionnaire Date Thrive assessed: 09/29/24 I am a: Patient What is your living situation today?: I have a steady place to live Within the past 12 months, did the food you bought not last and you didn't have the money to get more?: Never true Within the past 12 months, did you worry whether your food would run out before you got money to buy more?: Never true Do you have trouble paying for medicines?: No Do you have trouble getting transportation to medical appointments?: No Do you have trouble paying your heating and electricity bill?: No Do you have trouble taking care of your child, family member or friend?: Yes Do you have trouble with day-to-day activities such as bathing, preparing meals, shopping, managing finances, etc.?: Yes Are you currently unemployed and looking for a job?: No Are you interested in more education?: No Please select the resources that you would like help with: None Currently or been in a relationship where the following occur: No concerns reported THRIVE Score: 0 AUDIT C Alcohol Use Questionnaire (AUDIT-C) 1. How often do you have a drink containing alcohol?: Never Total Score: 0 MARY-7 AMB Questionnaire MARY-7 Date MARY - 7 assessed: 11/25/23 Feeling nervous, anxious, or on edge: 2 = More than half the days Not being able to stop or control worryin = More than half the days Worrying too much about different things: 3 = Nearly every day Trouble relaxin = More than half the days Being so restless that it is hard to sit still: 1 = Several days Becoming easily annoyed or irritable: 1 = Several days Feeling afraid as if something awful might happen: 1 = Several days Total MARY-7 score (0-4 normal; 5-9 mild; 10-14 moderate; 15-21 severe): 12 Source: Developed by Drs. Vinay Payan, Nehal Hardy, Tai Dempsey and colleagues, with an educational trini from [employer]. Physical exam (Primary Care) Vital Signs: Last Vital Signs Pulse 76 10/01/24 11:36 Resp 14 10/01/24 11:36 BP 150/70 H 10/01/24 11:36 Pulse Ox 97 10/01/24 11:36 Oxygen Delivery Method Room Air 10/01/24 11:36 BMI result Body Mass Index 28.8 Tobacco/Smoking Status: Tobacco use Status Tobacco use date assessed 03/02/24 10/01/24 11:38 Patient Tobacco Use Status Never used Tobacco 10/01/24 11:38 e-Cigarette/Vaping Use Never Used 10/01/24 11:38 PHQ-9: PHQ-9 Score PHQ-9: Total score 9 10/01/24 11:38 Thrive Assessment: Date of Thrive Assessment Date Thrive assessed 09/29/24 10/01/24 11:38 Currently or been in a relationship where the following occur: No concerns reported Coding Level of Care Code Est Pt Level 3 (35894) Diagnoses Hypertension I10 Assessment & Plan Assessment & Plan (1) Hypertension: Code(s): I10 - Essential (primary) hypertension Category: Medical Plan: Blood?pressure?150/70.??Ongoing?poorly?controlled?hypertension.??Goal?is?less?than?140/90 Continue?current?medications?and?will?trial?diltiazem Check?renal?function - will?review?lab?work?with?patient?at?next?visit Orders: Orders TSH reflex Free T4 Today I10 - Essential (primary) hypertension, Z00.00 - Encounter for general adult medical examination without abnormal findings Comprehensive [place]. Panel Fast Today I10 - Essential (primary) hypertension, Z00.00 - Encounter for general adult medical examination without abnormal findings Microalbumin, Random (w Creat) Today I10 - Essential (primary) hypertension Lipid Panel Today E78.5 - Hyperlipidemia, unspecified, Z00.00 - Encounter for general adult medical examination without abnormal findings Medications: New diltiazem HCl ER 60 mg PO Q12H 90 days 180 caps 3RF
[2024-10-01 11:36] VITALS: BP 150/70; PULSE 76; RESP 14; O2SAT 97; BMI 28.8
== END 2024-10-01 12:22 | disposition home or self-care (01) ==
PROVIDERS: PCP Family Medicine; Visit Provider Family Medicine
DX: I10 Essential (primary) hypertension (principal)

== ENCOUNTER → 2024-10-01 11:09 | Outpatient (BNVA) | payer MEDICAID, SELFPAY | PROVIDERS: PCP Family Medicine; Visit Provider Family Medicine | DX: I10 Essential (primary) hypertension (principal); E78.5 Hyperlipidemia, unspecified | CPT/HCPCS: 96127; 99212 ==

== ENCOUNTER 2024-10-06 08:49 | Outpatient (AMB) | payer MEDICAID, SELFPAY ==
[2024-10-06 08:51] VITALS: BP 140/72; PULSE 96; BMI 28.8
--- NOTE | 2024-10-06 08:51 | MHC.OFFVIS ---
Vital Signs 10/06/24 08:51 Height 5 ft Weight 147 lb 11.355 oz BMI 28.8 BP 140/72 H Blood Pressure Location Lt brachial Position Sitting Pulse 96 Pulse Source Pulse Oximeter Intake Visit Reasons: fu Administrative Support Clerk Required: No Administrative Support Clerk Name: daughter/nadir Accompanied by: Daughter Allergies flu shot Adverse Reaction (Unknown, Uncoded 10/01/24 11:35) Patient can't remember reaction. Medication List - Last Reconciled 10/06/24 by Amilcar Sutton MD aspirin 81 mg PO DAILY atorvastatin 80 mg PO DAILY 90 days cyclobenzaprine 5 mg PO BID PRN 5 days diclofenac sodium 75 mg PO BID diltiazem HCl ER 60 mg PO Q12H 90 days ezetimibe 10 mg PO DAILY 90 days fluticasone propionate 50 mcg/actuation 1 spray intranasal Q12H hydrochlorothiazide 50 mg (2 x 25 mg) PO DAILY 90 days lidocaine 5% (Lidoderm) 1 patch topical DAILY 30 days lisinopril 40 mg (2 x 20 mg) PO DAILY 90 days meclizine 25 mg PO BID PRN 30 days paroxetine HCl 40 mg PO QAM spironolactone 25 mg PO DAILY 30 days HPI Comments Details: Pleasant 69-year-old Martiniquais female with background history of hypertension and 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 She also has some neurological issues ongoing and cognitive problems with some confusion. She was previously on amlodipine but developed lower extremity edema and she will stop the amlodipine. Blood pressure control is good. She is denying any chest pain or shortness of breath. Taking medications regularly. No further chest pains. Taking medications regularly without any issues. Daughter said that patient saw neurology but no obvious cause for the cognitive decline was noticed. Overall she has been stable. She just has numbness in her left little finger. 01/28/24: She was last seen in September 2022. She returns for follow-up. Denying any chest pain or shortness of breath. Blood pressure readings have been high. She has background of spontaneous coronary artery dissection. She has background of hyperlipidemia and last LDL cholesterol was 127 with total cholesterol 217, triglycerides 190 and HDL 52 on 08/18/2023. She is denying any symptoms on follow-up. 10/06/2024: She is here for follow-up. She is been doing well. No chest pain or shortness of breath. Blood pressure is mildly elevated but she has been getting dizzy spells off and on. [facility] Medical History No pertinent past medical history Surgical History History of cardiac cath Hx of appendectomy Family History Mother HTN (hypertension) Father No problems noted. Social History Housing: House Alcohol intake: never Patient Tobacco Use Status: Never used Tobacco e-Cigarette/Vaping Use: Never Used Second Hand Smoke Exposure: No Advance Directives Date on File: 08/15/20 service: No Current occupational status: retired Current occupational exposures/hazards: No Cognitive needs: No Hearing needs: No Vision needs: No Review of Systems Const Denies chills, Denies fatigue, Denies fever(s), Denies frequent falls, Denies weakness, Denies weight gain and Denies weight loss ENT Denies dizziness Card Denies chest pain, Denies leg edema, Denies lightheadedness, Denies palpitations, Denies dyspnea and Denies dyspnea on exertion Resp Denies cough, Denies dyspnea and Denies dyspnea on exertion GI Denies hematochezia Musc Denies abnormal gait, Denies muscle weakness, Denies numbness, Denies radiating pain into limb and Denies tingling Neuro Denies abnormal gait, Denies dizziness, Denies frequent falls, Denies numbness, Denies tingling and Denies weakness Endo Denies fatigue and Denies palpitations Physical Exam Vital Signs: Last Vital Signs Pulse 96 10/06/24 08:51 BP 140/72 H 10/06/24 08:51 BMI result Body Mass Index 28.8 GENERAL APPEARANCE: in no acute distress, well developed, well nourished. NECK/THYROID: no carotid bruit, no jugular venous distention. SKIN: no suspicious lesions, warm and dry. HEART: no murmurs, regular rate and rhythm, S1, S2 normal. LUNGS: clear to auscultation bilaterally. ABDOMEN: normal, bowel sounds present, soft, nontender, nondistended. EXTREMITIES: no clubbing, cyanosis, or edema. PERIPHERAL PULSES: equal. NEUROLOGIC: Alert and oriented, power left-sided 4/5 PSYCH: mood/affect full range. Assessment & Plan Assessment & Plan (1) Hypertension: Code(s): I10 - Essential (primary) hypertension Category: Medical (2) Coronary artery dissection: Code(s): I25.42 - Coronary artery dissection Category: Medical Plan Pleasant 69-year-old female who is here for follow-up. She is background history of spontaneous coronary artery dissection. This was conservatively managed. Blood pressure is mildly elevated. She is taking diltiazem, hydrochlorothiazide, lisinopril and spironolactone. She is complaining of some dizziness which sounds like vertigo. No chest pain or shortness of breath. She has nonspecific ST changes on the EKG and has not had any echocardiography and has hypertension also. We will get an echocardiogram on her to assess wall motion and for any structural issues. Last LDL 75 from 11/22. She is on atorvastatin and ezetimibe. Follow-up in 1 year. Thank you for allowing me to participate in the care of your patient. Please feel free to contact me if you have any questions. Coding Level of Care Code Est Pt Level 4 (94624) Diagnoses Hypertension I10 Coronary artery dissection I25.42
== END 2024-10-06 09:06 | disposition home or self-care (01) ==
PROVIDERS: PCP Family Medicine; Visit Provider Internal Medicine Cardiovascular Disease
DX: I10 Essential (primary) hypertension (principal); I25.42 Coronary artery dissection
CPT/HCPCS: 99214

== ENCOUNTER → 2024-10-06 08:49 | Outpatient (BNVA) | payer MEDICAID, SELFPAY | PROVIDERS: PCP Family Medicine; Visit Provider Internal Medicine Cardiovascular Disease | DX: I10 Essential (primary) hypertension (principal); I25.42 Coronary artery dissection; R42 Dizziness and giddiness | CPT/HCPCS: 99212 ==

== ENCOUNTER 2024-10-22 10:43 | Outpatient (AMB) | payer MEDICAID, SELFPAY ==
--- NOTE | 2024-10-22 10:51 | MHC.PC.OV ---
Vital Signs 10/22/24 10:55 Height 5 ft Weight 147 lb 6 oz BMI 28.8 BP 146/72 H Blood Pressure Location Rt brachial Position Sitting Respiration 14 Pulse 76 Pulse Source Pulse Oximeter Pulse Oximetry (%) 98 Oxygen Delivery Method Room Air Intake Visit Reasons: cpe Intake Note: annual physical Pipe Testing Technician Required: No Allergies flu shot Adverse Reaction (Severe, Uncoded 10/22/24 10:52) Patient can't remember reaction. Tobacco use date assessed: 10/22/24 Fall risk assessment: No Falls in past year Last assessed Fall Risk: 10/22/24 Dental Screening Dental Screen Date: 03/02/24 Did you have a dental visit in the last 12 months?: Yes Did you have a dental problem in the last 6 months where you did not have access to dental care?: No Was dental information given to patient?: Patient has dentist HPI HPI Comments History of Present Illness Details 69 year old female with past medical history of hypertension, h/o coronary artery dissection (distal LAD), hyperlipidemia, depression, presenting to community health care. Internal transfer CV:On lisinopril, hctz, spironolactone, diltiazem, atorvastatin, aspirin, zetia.Denies shortness of breath. BH: On paxil 40mg daily MSK: On diclofenac, prn flexeril. History of thyroid disease, thyroid nodules. Endocrinology consult ROS CONSTITUTIONAL: Denies weight loss, fever and chills. HEENT: Denies changes in vision and hearing. RESPIRATORY: Denies SOB and cough. CV: Denies palpitations and CP GI: Denies abdominal pain, nausea, vomiting and diarrhea. : Denies dysuria and urinary frequency. MSK: Denies new myalgia and joint pain. SKIN: Denies rash and pruritus. NEUROLOGICAL: Denies headache PSYCHIATRIC: Denies recent changes in mood. PHYSICAL EXAM: GENERAL: Alert and oriented x 3. NAD EYES: EOMI. Anicteric. HENT: Moist mucous membranes. No scleral icterus. No cervical lymphadenopathy. LUNGS: Clear to auscultation bilaterally. CARDIOVASCULAR: Regular rate and rhythm. No murmur. No JVD. ABDOMEN: Soft, non-tender +bs EXTREMITIES: No edema. Non-tender. SKIN: No rashes or lesions. Warm. NEUROLOGIC: No focal neurological deficits. CN II-XII grossly intact PSYCHIATRIC: Cooperative. Appropriate mood and affect [facility] Medical History No pertinent past medical history Surgical History History of cardiac cath Hx of appendectomy Family History Mother HTN (hypertension) Father No problems noted. Social History Housing: House Alcohol intake: never Patient Tobacco Use Status: Never used Tobacco e-Cigarette/Vaping Use: Never Used Second Hand Smoke Exposure: No Advance Directives Date on File: 08/15/20 service: No Current occupational status: retired Current occupational exposures/hazards: No Cognitive needs: No Hearing needs: No Vision needs: No Questionnaire PHQ-9 Over the last 2 weeks, how often have you been bothered by any of the following problems? 40365 - PHQ-9 Billing: Patient declined-do not bill Source: Developed by Drs. Vinay Payan, Nehla Hardy, Tai Dempsey and colleagues, with an educational trini from [employer]. Thrive Questionnaire Date Thrive assessed: 10/22/24 I am a: Patient What is your living situation today?: I have a steady place to live Within the past 12 months, did the food you bought not last and you didn't have the money to get more?: Never true Within the past 12 months, did you worry whether your food would run out before you got money to buy more?: Never true Do you have trouble paying for medicines?: No Do you have trouble getting transportation to medical appointments?: No Do you have trouble paying your heating and electricity bill?: No Do you have trouble taking care of your child, family member or friend?: Yes Do you have trouble with day-to-day activities such as bathing, preparing meals, shopping, managing finances, etc.?: Yes Are you currently unemployed and looking for a job?: No Are you interested in more education?: No Please select the resources that you would like help with: None Currently or been in a relationship where the following occur: No concerns reported THRIVE Score: 0 MARY-7 AMB Questionnaire MARY-7 Date MARY - 7 assessed: 11/25/23 Source: Developed by Drs. Vinay Payan, Nehal Hardy, Tai Dempsey and colleagues, with an educational trini from [employer]. Physical exam (Primary Care) Vital Signs: Last Vital Signs Pulse 76 10/22/24 10:55 Resp 14 10/22/24 10:55 BP 146/72 H 10/22/24 10:55 Pulse Ox 98 10/22/24 10:55 Oxygen Delivery Method Room Air 10/22/24 10:55 BMI result Body Mass Index 28.8 Tobacco/Smoking Status: Tobacco use Status Tobacco use date assessed 10/22/24 10/22/24 10:54 Patient Tobacco Use Status Never used Tobacco 10/22/24 10:51 e-Cigarette/Vaping Use Never Used 10/22/24 10:51 Thrive Assessment: Date of Thrive Assessment Date Thrive assessed 10/22/24 10/22/24 10:51 Currently or been in a relationship where the following occur: No concerns reported Coding Level of Care Code Est Pt Level 4 (87917) Diagnoses Coronary artery disease involving [place] coronary artery of [place] heart, unspecified whether angina present I25.10 Coronary Disease-Associated Artery/Lesion type: [place] artery Associated angina: unspecified whether angina present [place] vs. transplanted heart: [place] heart Polyarthralgia M25.50 Assessment & Plan Assessment & Plan (1) Coronary artery disease: Code(s): I25.10 - Atherosclerotic heart disease of [place] coronary artery without angina pectoris Category: Medical Qualifiers: Coronary Disease-Associated Artery/Lesion type: [place] artery Associated angina: unspecified whether angina present [place] vs. transplanted heart: [place] heart Qualified Code(s): I25.10 - Atherosclerotic heart disease of [place] coronary artery without angina pectoris Plan: stable. continue current medications (2) Polyarthralgia: Code(s): M25.50 - Pain in unspecified joint Category: Medical Plan: stable on current medications
[2024-10-22 10:55] VITALS: BP 146/72; PULSE 76; RESP 14; O2SAT 98; BMI 28.8
== END 2024-10-22 14:58 | disposition home or self-care (01) ==
PROVIDERS: PCP Family Medicine; Visit Provider Internal Medicine
DX: I25.10 Atherosclerotic heart disease of native coronary artery without angina pectoris (principal); M25.50 Pain in unspecified joint

== ENCOUNTER → 2024-10-22 10:43 | Outpatient (BNVA) | payer MEDICAID, SELFPAY | PROVIDERS: PCP Family Medicine; Visit Provider Internal Medicine | DX: I25.10 Atherosclerotic heart disease of native coronary artery without angina pectoris (principal); M25.50 Pain in unspecified joint; I10 Essential (primary) hypertension; F32.A Depression, unspecified; Z79.899 Other long term (current) drug therapy | CPT/HCPCS: 99212 ==

== ENCOUNTER 2024-11-26 08:37 | Outpatient (AMB) | payer MEDICAID, SELFPAY ==
--- NOTE | 2024-11-26 08:48 | MHC.PC.OV ---
Vital Signs 11/26/24 08:53 Height 5 ft Weight 150 lb BMI 29.3 BP 122/62 Blood Pressure Location Lt brachial Position Sitting Pulse 82 Pulse Source Pulse Oximeter Pulse Oximetry (%) 95 Oxygen Delivery Method Room Air Intake Visit Reasons: high blood pressure Intake Note: Follow up htn. Fell 2 weeks ago and hurt right knee. Daughter requesting a cane. Needs refill on Fluticasone Propionate 50 mcg Antique Refinisher Required: No Antique Refinisher Name: Antique Refinisher declined Accompanied by: Daughter Allergies flu shot Adverse Reaction (Severe, Uncoded 11/26/24 08:51) Patient can't remember reaction. Tobacco use date assessed: 10/22/24 Dental Screening Dental Screen Date: 03/02/24 HPI high blood pressure HPI Details 69 y/o female presents to f/u hypertension. Trialing diltiazem. They report fall x2 weeks ago. She reports R knee pain. Blood pressure today 122/62, 82p. She is on lisinopril 40mg, HCTZ 50mg, diltiazem 60mg. Also on spironolactone 25mg daily. HPI Comments History of Present Illness Details Documentation assistance for Sergei Delgado MD, was provided by Domenico Serna, Track Layer [employer] on 11/26/2024 at 9:12 AM EST. I, Dr. Delgado, have read, observed, and verified documentation. [facility] Medical History No pertinent past medical history Surgical History History of cardiac cath Hx of appendectomy Family History Mother HTN (hypertension) Father No problems noted. Social History (Updated 11/26/24 @ 08:53 by Jane Loomis CMA) Housing: House Alcohol intake: never Patient Tobacco Use Status: Never used Tobacco e-Cigarette/Vaping Use: Never Used Second Hand Smoke Exposure: No Use of substances other than those prescribed or required for medical reasons: No Advance Directives Date on File: 08/15/20 service: No Current occupational status: retired Current occupational exposures/hazards: No Cognitive needs: No Hearing needs: No Vision needs: No Questionnaire PHQ-9 Over the last 2 weeks, how often have you been bothered by any of the following problems? 1. Little interest or pleasure in doing things: several days 2. Feeling down, depressed, or hopeless: several days 3. Trouble falling or staying asleep, or sleeping too much: nearly every day 4. Feeling tired or having little energy: nearly every day 5. Poor appetite or overeating: nearly every day 6. Feeling bad about yourself - or that you are a failure or have let yourself or your family down: several days 7. Trouble concentrating on things, such as reading the newspaper or watching television: nearly every day 8. Moving or speaking so slowly that other people could have noticed. Or the opposite - being so fidgety or restless that you have been moving around a lot more than usual: not at all 9. Thoughts that you would be better off or of hurting yourself in some way: not at all Total score: 15 Source: Developed by Drs. Vinay Payan, Nehal Hardy, Tai Dempsey and colleagues, with an educational trini from [employer]. Thrive Questionnaire Date Thrive assessed: 10/22/24 I am a: Parent/Caregiver What is your living situation today?: I have a steady place to live Within the past 12 months, did the food you bought not last and you didn't have the money to get more?: Never true Within the past 12 months, did you worry whether your food would run out before you got money to buy more?: Never true Do you have trouble paying for medicines?: No Do you have trouble getting transportation to medical appointments?: No Do you have trouble paying your heating and electricity bill?: No Do you have trouble taking care of your child, family member or friend?: No Do you have trouble with day-to-day activities such as bathing, preparing meals, shopping, managing finances, etc.?: Yes Are you currently unemployed and looking for a job?: No Are you interested in more education?: No Please select the resources that you would like help with: None Currently or been in a relationship where the following occur: No concerns reported THRIVE Score: 0 AUDIT C Alcohol Use Questionnaire (AUDIT-C) 1. How often do you have a drink containing alcohol?: Never Total Score: 0 MARY-7 AMB Questionnaire MARY-7 Date MARY - 7 assessed: 11/25/23 Feeling nervous, anxious, or on edge: 2 = More than half the days Not being able to stop or control worryin = Several days Worrying too much about different things: 1 = Several days Trouble relaxin = Nearly every day Being so restless that it is hard to sit still: 0 = Not at all Becoming easily annoyed or irritable: 1 = Several days Feeling afraid as if something awful might happen: 1 = Several days Total MARY-7 score (0-4 normal; 5-9 mild; 10-14 moderate; 15-21 severe): 9 Source: Developed by Drs. Vinay Payan, Nehal Hardy, Tai Dempsey and colleagues, with an educational trini from [employer]. Review of Systems Const Denies chills, Denies fatigue, Denies fever(s), Denies headache(s) and Denies weakness ENT Denies dizziness and Denies headache(s) Card Denies dyspnea Resp Denies cough, Denies dyspnea, Denies wheezing and Denies other (shortness of breath) Musc Details: R knee pain Denies numbness and Denies tingling Neuro Denies dizziness, Denies headache(s), Denies numbness, Denies tingling and Denies weakness Psych Denies anxiety and Denies depression Endo Denies fatigue Aller/Immun Denies wheezing Physical exam (Primary Care) Vital Signs: Last Vital Signs Pulse 82 11/26/24 08:53 BP 122/62 11/26/24 08:53 Pulse Ox 95 11/26/24 08:53 Oxygen Delivery Method Room Air 11/26/24 08:53 BMI result Body Mass Index 29.3 Tobacco/Smoking Status: Tobacco use Status Tobacco use date assessed 10/22/24 11/26/24 08:49 Patient Tobacco Use Status Never used Tobacco 11/26/24 08:53 e-Cigarette/Vaping Use Never Used 11/26/24 08:53 PHQ-9: PHQ-9 Score PHQ-9: Total score 15 11/26/24 08:49 Thrive Assessment: Date of Thrive Assessment Date Thrive assessed 10/22/24 11/26/24 08:49 Currently or been in a relationship where the following occur: No concerns reported Const General: well developed; No acute distress Nutritional Appearance: well nourished Orientation/consciousness: patient oriented x3 HENMT Head: Yes normocephalic and Yes atraumatic Eyes General: appearance normal, both eyes and all related structures Pupils: Equal, round and reactive pupils present EOM: EOMs intact bilaterally Resp Effort & Inspection: normal respiratory effort Neuro General: patient oriented x3 and gait normal Cranial nerves: Yes Equal, round and reactive pupils present Psych Affect: normal affect Coding Level of Care Code Est Pt Level 3 (45196) Diagnoses Hypertension I10 Status post fall Z91.81 Right knee pain M25.561 Assessment & Plan Assessment & Plan (1) Hypertension: Code(s): I10 - Essential (primary) hypertension Category: Medical Plan: Blood?pressure?appears?controlled?today.??Goal?is?less?than?130/80 Continue?current?medication?regimen (2) Status post fall: Code(s): Z91.81 - History of falling Category: Medical Plan: Patient?is?s/p?fall?about?2?weeks?ago?with?some?residual?pain?though?this?appears?to?be?improving. Patient?has?had?issues?with?hip?and?back?pain?and?lower?extremity?weakness. I?recommended?physical?therapy?but?patient?and?daughter?declined?this. Discussed?and?demonstrated?exercises?patient?can?perform?at?home?for?lower?extremity?strength?and?balance Gave?patient?a?script?for?cane (3) Right knee pain: Code(s): M25.561 - Pain in right knee Category: Medical Plan: as above Medications: New cane Daily As directed, 999 days 1 ea 0RF M25.552 - Pain in left hip, M54.32 - Sciatica, left side, R29.898 - Other symptoms and signs involving the musculoskeletal system Refilled fluticasone propionate 50 mcg/actuation 1 spray intranasal Q12H 16 grams 3RF
[2024-11-26 08:53] VITALS: BP 122/62; PULSE 82; O2SAT 95; BMI 29.3
== END 2024-11-26 09:28 | disposition home or self-care (01) ==
PROVIDERS: PCP Family Medicine; Visit Provider Family Medicine
DX: I10 Essential (primary) hypertension (principal); Z91.81 History of falling; M25.561 Pain in right knee

== ENCOUNTER → 2024-11-26 08:37 | Outpatient (BNVA) | payer MEDICAID, SELFPAY | PROVIDERS: PCP Family Medicine; Visit Provider Family Medicine | DX: I10 Essential (primary) hypertension (principal); M25.561 Pain in right knee; Z91.81 History of falling | CPT/HCPCS: 99212 ==

== ENCOUNTER 2025-02-23 08:44 | Outpatient (AMB) | payer MEDICAID, SELFPAY ==
--- NOTE | 2025-02-23 08:49 | A.OFFPC_ITS ---
Vital Signs 02/23/25 08:54 02/23/25 08:57 Height 5 ft Weight 149 lb 8 oz BMI 29.2 BP 140/78 H 130/70 Blood Pressure Location Lt brachial Lt brachial Position Sitting Sitting Respiration 14 Pulse 86 Pulse Source Pulse Oximeter Temp 98.0 F Temp Source Oral Pulse Oximetry (%) 94 Oxygen Delivery Method Room Air Intake Visit Reasons: F/U on B/P Intake Note: patient is scheduled for b/p follow up Retail Loss Prevention Investigator Required: Yes Retail Loss Prevention Investigator Name: refused Log Feeder: Present Accompanied by: Daughter Allergies flu shot Adverse Reaction (Severe, Uncoded 11/26/24 08:51) Patient can't remember reaction. Medication List - Last Reconciled 02/23/25 by Sergei Delgado MD aspirin 81 mg PO DAILY atorvastatin 80 mg PO DAILY 90 days cane Daily As directed, 999 days cyclobenzaprine 5 mg PO BID PRN 5 days diclofenac sodium 75 mg PO BID diltiazem HCl ER 60 mg PO Q12H 90 days ezetimibe 10 mg PO DAILY fluticasone propionate 50 mcg/actuation 1 spray intranasal Q12H hydrochlorothiazide 50 mg (2 x 25 mg) PO DAILY 90 days lidocaine 5% (Lidoderm) 1 patch topical DAILY 30 days lisinopril 40 mg (2 x 20 mg) PO DAILY 90 days meclizine 25 mg PO BID PRN 30 days paroxetine HCl 40 mg PO QAM spironolactone 25 mg PO DAILY 30 days Tobacco use date assessed: 10/22/24 Dental Screening Dental Screen Date: 03/02/24 HPI F/U on B/P HPI Details Patient?presents?to?follow-up?hypertension. He?is?taking?lisinopril,?hydrochlorothiazide,?spironolactone?and?diltiazem?as?pr escribed. Blood?pressure?a?little?elevated?at?start?a?visit?but?decreases?to?controlled? range?with?relaxation. Her?daughter?notes?some?daytime?sleepiness?and?fatigue. No?other?complaints.??Patient?feels?well. [facility] Medical History No pertinent past medical history Surgical History History of cardiac cath Hx of appendectomy Family History Mother HTN (hypertension) Father No problems noted. Social History (Updated 11/26/24 @ 08:53 by Jane Loomis CMA) Housing: House Alcohol intake: never Patient Tobacco Use Status: Never used Tobacco e-Cigarette/Vaping Use: Never Used Second Hand Smoke Exposure: No Advance Directives Date on File: 08/15/20 service: No Current occupational status: retired Current occupational exposures/hazards: No Cognitive needs: No Hearing needs: No Vision needs: No Questionnaire Thrive Questionnaire Date Thrive assessed: 11/26/24 I am a: Parent/Caregiver What is your living situation today?: I have a steady place to live Within the past 12 months, did the food you bought not last and you didn't have the money to get more?: Never true Within the past 12 months, did you worry whether your food would run out before you got money to buy more?: Never true Do you have trouble paying for medicines?: No Do you have trouble getting transportation to medical appointments?: No Do you have trouble paying your heating and electricity bill?: No Do you have trouble taking care of your child, family member or friend?: No Do you have trouble with day-to-day activities such as bathing, preparing meals, shopping, managing finances, etc.?: Yes Are you currently unemployed and looking for a job?: No Are you interested in more education?: No Please select the resources that you would like help with: None Currently or been in a relationship where the following occur: No concerns reported THRIVE Score: 0 MARY-7 AMB Questionnaire MARY-7 Date MARY - 7 assessed: 11/25/23 Source: Developed by Drs. Vinay Payan, Nehal Hardy, Tai Dempsey and colleagues, with an educational trini from [employer]. Review of Systems Const Denies chills, Reports fatigue, Denies fever(s), Denies headache(s) and Denies weakness ENT Denies dizziness and Denies headache(s) Card Denies chest pain, Denies lightheadedness, Denies dyspnea and Denies other (Palpitations) Resp Denies cough, Denies dyspnea, Denies wheezing and Denies other ( shortness of breath) Musc Denies numbness and Denies tingling Neuro Denies dizziness, Denies headache(s), Denies numbness, Denies tingling, Denies paresthesias and Denies weakness Psych Denies anxiety and Denies depression Endo Reports fatigue Aller/Immun Denies wheezing Physical exam (Primary Care) Vital Signs: Last Vital Signs Temp 98.0 F 02/23/25 08:54 Pulse 86 02/23/25 08:54 Resp 14 02/23/25 08:54 BP 130/70 02/23/25 08:57 Pulse Ox 94 02/23/25 08:54 Oxygen Delivery Method Room Air 02/23/25 08:54 BMI result Body Mass Index 29.2 Tobacco/Smoking Status: Tobacco use Status Tobacco use date assessed 10/22/24 02/23/25 08:51 Patient Tobacco Use Status Never used Tobacco 02/23/25 08:51 e-Cigarette/Vaping Use Never Used 02/23/25 08:51 Thrive Assessment: Date of Thrive Assessment Date Thrive assessed 11/26/24 02/23/25 08:51 Currently or been in a relationship where the following occur: No concerns reported Const General: no acute distress and well developed Nutritional Appearance: well nourished Orientation/consciousness: patient oriented x3 HENMT Head: Yes normocephalic and Yes atraumatic Eyes General: appearance normal, both eyes and all related structures Pupils: Equal, round and reactive pupils present EOM: EOMs intact bilaterally Resp Effort & Inspection: normal respiratory effort Auscultation: clear to auscultation bilaterally Cardio Rate: regular rate Rhythm: regular rhythm Heart sounds: S1 normal heart sound present, S2 normal heart sound present, no gallops, no murmurs and no rubs Neuro General: patient oriented x3 and gait normal Cranial nerves: Yes Equal, round and reactive pupils present Psych Affect: normal affect Coding Level of Care Code Est Pt Level 3 (44854) Diagnoses Hypertension I10 Hypersomnia G47.10 Assessment & Plan Assessment & Plan (1) Hypertension: Code(s): I10 - Essential (primary) hypertension Category: Medical Plan: Blood?pressure?is?fairly?well?controlled.??Goal?is?less?than?130/80. Continue?current?medication?regimen (2) Hypersomnia: Code(s): G47.10 - Hypersomnia, unspecified Category: Medical Plan: Daytime?sleepiness?and?fatigue. Referred?to?Sleep?Medicine
[2025-02-23 08:54] VITALS: BP 140/78; PULSE 86; RESP 14; TEMP 36.7; O2SAT 94; BMI 29.2
[2025-02-23 08:57] VITALS: BP 130/70
== END 2025-02-23 09:24 | disposition home or self-care (01) ==
LOC: HO.HMCFM 08:45
PROVIDERS: PCP Family Medicine; Visit Provider Family Medicine
DX: I10 Essential (primary) hypertension (principal); G47.10 Hypersomnia, unspecified

== ENCOUNTER → 2025-02-23 08:44 | Outpatient (BNVA) | payer MEDICAID, SELFPAY | PROVIDERS: PCP Family Medicine; Visit Provider Family Medicine | DX: I10 Essential (primary) hypertension (principal); G47.10 Hypersomnia, unspecified; Z79.899 Other long term (current) drug therapy | CPT/HCPCS: 99212 ==

== ENCOUNTER 2025-02-28 08:49 | Outpatient (REF) | payer MEDICAID, SELFPAY ==
[2025-02-28 11:24] LABS: Free T4 (Free Thyroxine) 0.84 ng/dL (0.71-1.85); Thyroid Stimulating Hormone 0.99 uIU/mL (0.32-4.0)
== END 2025-02-28 08:50 | disposition home or self-care (01) ==
LOC: HO.LAB 08:49
PROVIDERS: PCP Internal Medicine; Visit Provider Student in an Organized Health Care Education/Training Program
DX: E04.1 Nontoxic single thyroid nodule (principal)
CPT/HCPCS: 36415; 84439; 84443

== ENCOUNTER 2025-03-02 11:23 | Outpatient (REF) | payer MEDICAID, SELFPAY ==
--- NOTE | ~2025-03-02 | US_ITS ---
EXAMINATION: US THYROID HISTORY: E04.1 - Nontoxic single thyroid nodule TECHNIQUE: Real-time grayscale ultrasound imaging was performed and images were reviewed. COMPARISON: Comparison is made with the prior examination dated 01/08/2023. FINDINGS: SIZE: The right thyroid lobe measures 4.3 x 2.4 x 2.8 cm. The left thyroid lobe measures 3.6 x 1.5 x 0.9 cm. The isthmus measures 11 mm. FLOW: Flow to the gland is increased on the right and normal on the left. ECHOGENICITY: The echotexture of the gland is heterogeneous on the right are normal on the left. NODULES: Multiple nodules are identified as described below: Nodule #: 1 Location: Mid to lower pole of the right thyroid lobe measuring 2.3 x 1.6 x 2.4 cm (previously 3.6 x 2.6 x 2.8 cm). Shape: Wider than tall (0 points) Margins: Smooth (0 points) Echotexture: Isoechoic (1 point) Composition: Mixed (1 point) Calcifications: None (0 points) Total points: 2 TIRADS: TR2: Not suspicious Nodule #: 2 Location: Midportion of the right thyroid lobe measuring 1.3 x 1.6 x 1.0 cm (not identified previously). Shape: Taller than wide (3 points) Margins: Smooth (0 points) Echotexture: Isoechoic (1 point) Composition: Mostly solid (2 points) Calcifications: None (0 points) Total points: 6 TIRADS: TR4: Moderately suspicious. Nodule #: 3 Location: Lower pole of the right thyroid lobe measuring 9 x 8 x 10 mm (not identified previously). Shape: Wider than tall (0 points) Margins: Smooth (0 points) Echotexture: Indeterminate (1 point) Composition: Mixed (1 point) Calcifications: Punctate calcifications (3 points) Total points: 5 TIRADS: TR4: Moderately suspicious. Nodule #: 3 Location: Isthmus measuring 3.4 x 1.6 x 2.6 cm (previously 3.0 x 2.0 x 2.6 cm). Shape: Wider than tall (0 points) Margins: Extrathyroidal extension (3 points) Echotexture: Hypoechoic (2 points) Composition: Solid (2 points) Calcifications: None (0 points) Total points: 7 TIRADS: TR5: Highly suspicious. Nodule #: 5 Location: Midportion of the left thyroid lobe measuring 6 x 4 x 8 mm (previously 12 x 7 x 9 mm). Shape: Wider than tall (0 points) Margins: Smooth (0 points) Echotexture: Isoechoic (1 point) Composition: Solid (2 points) Calcifications: None (0 points) Total points: 3 TIRADS: TR3: Mildly suspicious. Additional subcentimeter nodules similar to #5 above are identified at the lower pole of the left thyroid lobe. US/US thyroid IMPRESSION: 1. Highly suspicious nodule of the isthmus (which was biopsied on 07/14/2024 demonstrating benign results) is stable. 2. New moderately suspicious nodules in the midportion and lower pole regions of the right thyroid lobe (nodules # 2 and 3 above). According to ACR TI-RADS guidelines below, ultrasound-guided fine-needle aspiration is recommended. ACR TI-RADS Guidelines TR1 (0 points): Benign, No follow-up or biopsy required TR2 (2 points): Not Suspicious, No biopsy or follow up indicated TR3 (3 points): Mildly Suspicious, FNA if >= 2.5 cm, Follow if >= 1.5 cm TR4 (4-6 points): Moderately Suspicious, FNA if >= 1.5 cm, Follow if >= 1.0 cm TR5 (>=7 points): Highly Suspicious, FNA if >= 1.0 cm, Follow if >= 0.5 cm Electronically signed by: Vinay Al MD 03/02/2025 12:56 PM EDT
== END 2025-03-02 11:24 | disposition home or self-care (01) ==
LOC: HO.US 11:23
PROVIDERS: PCP Family Medicine; Visit Provider Student in an Organized Health Care Education/Training Program
DX: E04.1 Nontoxic single thyroid nodule (principal)
CPT/HCPCS: 76536

== ENCOUNTER → 2025-03-02 11:24 | Outpatient (BNV) | payer MEDICAID, SELFPAY | PROVIDERS: PCP Family Medicine; Visit Provider Radiology Diagnostic Radiology | DX: D44.0 Neoplasm of uncertain behavior of thyroid gland (principal) | CPT/HCPCS: 76536 ==

== ENCOUNTER 2025-03-03 10:03 | Outpatient (AMB) | payer MEDICAID, SELFPAY ==
[2025-03-03 10:05] VITALS: BP 148/68; PULSE 85; O2SAT 97; BMI 29.2
--- NOTE | 2025-03-03 10:05 | A.OFFVIS_ITS ---
Vital Signs 03/03/25 10:05 Height 5 ft Weight 149 lb 7.574 oz BMI 29.2 BP 148/68 H Blood Pressure Location Lt brachial Position Sitting Pulse 85 Pulse Source Pulse Oximeter Pulse Oximetry (%) 97 Oxygen Delivery Method Room Air Intake Visit Reasons: MNG Intake Note: Patient present today for MNG office visit. Sr. Operations Manager Required: Yes Sr. Operations Manager Language: Citizen Of [place] Sr. Operations Manager Services: Sr. Operations Manager Offered & Declined Accompanied by: Daughter Allergies flu shot Adverse Reaction (Severe, Uncoded 03/03/25 10:09) Patient can't remember reaction. Medication List - Last Reconciled 03/03/25 by Leidy Faulkner MD aspirin 81 mg PO DAILY atorvastatin 80 mg PO DAILY 90 days cane Daily As directed, 999 days cyclobenzaprine 5 mg PO BID PRN 5 days diclofenac sodium 75 mg PO BID diltiazem HCl ER 60 mg PO Q12H 90 days ezetimibe 10 mg PO DAILY fluticasone propionate 50 mcg/actuation 1 spray intranasal Q12H hydrochlorothiazide 50 mg (2 x 25 mg) PO DAILY 90 days lidocaine 5% (Lidoderm) 1 patch topical DAILY 30 days lisinopril 40 mg (2 x 20 mg) PO DAILY 90 days meclizine 25 mg PO BID PRN 30 days paroxetine HCl 40 mg PO QAM spironolactone 25 mg PO DAILY 30 days HPI Comments Details: 68 YO [place] with a PMHx of HLD with CAD who is seen for follow up of multinodular thyroid. HPI from prior visit She underwent thyroid US 01/08/2023 with identification of multiple bilateral large nodules. US THYROID 01/16 I reviewed the images myself which showed the right dominant 3.6 cm nodule, mixed cystic solid, with mostly a cystic component however does have mixed a echogenic foci, making it TR 4, or SAM high-suspicion category greater than 50% chance of malignancy. Also showed the isthmus 3 cm nodule which has been noted to have extrathyroidal extension, also making it SAM high suspicion category, TR 5 nodule with greater than 50% chance of malignancy. The left dominant 1.2 cm nodule is solid, isoechoic TR 3 nodule. This is SAM low suspicion with 5-10% chance of malignancy does not meet criteria for biopsy. Underwent FNA 07/14/24 of the right 3.6 cm and isthmus 3 cm nodules with benign cytology ([place]hes[place] II) Patient currently denies heat or cold intolerance, diarrhea or constipation, hair loss, palpitation, anxiety, weight changes, changes in appearance of eyes or vision changes, , increased diaphoresis or dry skin. ? Does complain of low energy low mood does have mild chronic tremors Patient denies any difficulty swallowing, pain on swallowing or voice changes or difficulty breathing. Patient denies any history of childhood neck radiation. Denies having ever used lithium, amiodarone or biotin supplements. Patient denies any family history of thyroid cancer. Grandmother: had thyroid nodules Interval history TFTs from February 2025 within normal range Thyroid ultrasound done 03/02/2025 showed the right dominant lobe nodule to be stable in size now measuring a little bit smaller to 2.3 X1.6 X2.4 cm, which is mixed cystic solid, isoechoic, this was biopsied previously in June 2024 and was benign. A new right mid 1.3 X1.6 X 1 cm solid isoechoic taller than wide nodule which is TR 4 category was not previously measured, now meets criteria for FNA. Her right lower pole 1 cm solid hypoechoic nodule with a macrocalcification. Even though this is TR 4 category, this is too small to be biopsied. The largest isthmus 3.4 cm nodule remained stable in size, this was also biopsied in June 2024 and was benign. The left mid 1.2 cm nodule now measures smaller in size is subcentimeter solid isoechoic TR 3 nodule. Physical exam General: sitting comfortably in no acute distress HEENT: normocephalic/atraumatic,, moist oral mucosa Neck: Palpable 3 cm right-sided nodule and palpable 3 cm isthmus nodule Cardiac: normal heart sounds Pulm: normal breath sounds B/L, no added breath sounds Abd: not distended, no tenderness Extremities: no edema, no signs of myxedema Neuro: AAO x3, Speech: normal, no facial droop, moving all 4 extremities Laboratory Tests 11/26/21 01/03/23 08/18/23 10:15 12:06 10:32 TSH 0.48 1.01 0.25 L Free T4 0.80 0.85 Total T3 120 02/24/24 06/14/24 02/28/25 09:20 09:46 09:09 TSH 1.16 0.79 0.99 Free T4 0.76 0.84 Total T3 EXAMINATION: US THYROID 03/02/25 HISTORY: E04.1 - Nontoxic single thyroid nodule TECHNIQUE: Real-time grayscale ultrasound imaging was performed and images were reviewed. COMPARISON: Comparison is made with the prior examination dated 01/08/2023. FINDINGS: SIZE: The right thyroid lobe measures 4.3 x 2.4 x 2.8 cm. The left thyroid lobe measures 3.6 x 1.5 x 0.9 cm. The isthmus measures 11 mm. FLOW: Flow to the gland is increased on the right and normal on the left. ECHOGENICITY: The echotexture of the gland is heterogeneous on the right are normal on the left. NODULES: Multiple nodules are identified as described below: Nodule #: 1 Location: Mid to lower pole of the right thyroid lobe measuring 2.3 x 1.6 x 2.4 cm (previously 3.6 x 2.6 x 2.8 cm). Shape: Wider than tall (0 points) Margins: Smooth (0 points) Echotexture: Isoechoic (1 point) Composition: Mixed (1 point) Calcifications: None (0 points) Total points: 2 TIRADS: TR2: Not suspicious Nodule #: 2 Location: Midportion of the right thyroid lobe measuring 1.3 x 1.6 x 1.0 cm (not identified previously). Shape: Taller than wide (3 points) Margins: Smooth (0 points) Echotexture: Isoechoic (1 point) Composition: Mostly solid (2 points) Calcifications: None (0 points) Total points: 6 TIRADS: TR4: Moderately suspicious. Nodule #: 3 Location: Lower pole of the right thyroid lobe measuring 9 x 8 x 10 mm (not identified previously). Shape: Wider than tall (0 points) Margins: Smooth (0 points) Echotexture: Indeterminate (1 point) Composition: Mixed (1 point) Calcifications: Punctate calcifications (3 points) Total points: 5 TIRADS: TR4: Moderately suspicious. Nodule #: 3 Location: Isthmus measuring 3.4 x 1.6 x 2.6 cm (previously 3.0 x 2.0 x 2.6 cm). Shape: Wider than tall (0 points) Margins: Extrathyroidal extension (3 points) Echotexture: Hypoechoic (2 points) Composition: Solid (2 points) Calcifications: None (0 points) Total points: 7 TIRADS: TR5: Highly suspicious. Nodule #: 5 Location: Midportion of the left thyroid lobe measuring 6 x 4 x 8 mm (previously 12 x 7 x 9 mm). Shape: Wider than tall (0 points) Margins: Smooth (0 points) Echotexture: Isoechoic (1 point) Composition: Solid (2 points) Calcifications: None (0 points) Total points: 3 TIRADS: TR3: Mildly suspicious. Additional subcentimeter nodules similar to #5 above are identified at the lower pole of the left thyroid lobe. US/US thyroid IMPRESSION: 1. Highly suspicious nodule of the isthmus (which was biopsied on 07/14/2024 demonstrating benign results) is stable. 2. New moderately suspicious nodules in the midportion and lower pole regions of the right thyroid lobe (nodules # 2 and 3 above). According to ACR TI-RADS guidelines below, ultrasound-guided fine-needle aspiration is recommended. [facility] Medical History No pertinent past medical history Surgical History History of cardiac cath Hx of appendectomy Family History Mother HTN (hypertension) Father No problems noted. Social History Housing: House Alcohol intake: never Patient Tobacco Use Status: Never used Tobacco e-Cigarette/Vaping Use: Never Used Second Hand Smoke Exposure: No Advance Directives Date on File: 08/15/20 service: No Current occupational status: retired Current occupational exposures/hazards: No Cognitive needs: No Hearing needs: No Vision needs: No Physical Exam Vital Signs: Last Vital Signs Pulse 85 03/03/25 10:05 BP 148/68 H 03/03/25 10:05 Pulse Ox 97 03/03/25 10:05 Oxygen Delivery Method Room Air 03/03/25 10:05 BMI result Body Mass Index 29.2 Assessment & Plan Assessment & Plan (1) Multiple thyroid nodules: Code(s): E04.2 - Nontoxic multinodular goiter Category: Medical Plan: Patient with no family history of thyroid cancer, with no personal history of head or neck radiation who is coming in today for follow up of multiple thyroid nodules. Underwent FNA biopsy of the right 3.6 cm in the isthmus 3 cm nodules on 07/14/24 which showed benign cytology for both ([place] category 2). She has no compressive symptoms. TFTs from February 2025 within normal range Thyroid ultrasound done 03/02/2025 showed the right dominant lobe nodule to be stable in size now measuring a little bit smaller to 2.3 X1.6 X2.4 cm, which is mixed cystic solid, isoechoic, this was biopsied previously in June 2024 and was benign. A new right mid 1.3 X1.6 X 1 cm solid isoechoic taller than wide nodule which is TR 4 category was not previously measured, now meets criteria for FNA. Her right lower pole 1 cm solid hypoechoic nodule with a macrocalcification. Even though this is TR 4 category, this is too small to be biopsied. The largest isthmus 3.4 cm nodule remained stable in size, this was also biopsied in June 2024 and was benign. The left mid 1.2 cm nodule now measures smaller in size is subcentimeter solid isoechoic TR 3 nodule. At this time I discussed with her that given the right mid lobe 1.6 cm nodule is new and meets criteria for biopsy, I would like to do FNA. However after discussion with both patient and her daughter, for now they would not like to pursue the biopsy. They understand that there is a 10-20% risk of malignancy , and even though thyroid cancer in most cases has good prognosis, if a cancer is present it could potentially spread and be fatal. However at this time it would meet too much of an emotional burden for them to have another biopsy, so they would like to go with surveillance ultrasound. We will plan to repeat an ultrasound in 6 to 8 months. Plan: -ordered ultrasound of the thyroid to be done in November 2025 with follow up after Patient verbalized understanding and agreeable with plan. All questions answered. Plan I spent 30 minutes in reviewing the record, seeing the patient and documenting in the medical record. Orders: Orders US thyroid 11/28/25 E04.2 - Nontoxic multinodular goiter Patient Instructions: Do Ultrasound of the thyroid in Nov 2025 and follow up end of Nov 2025 to discuss results Coding Level of Care Code Est Pt Level 4 (70455) Diagnoses Multiple thyroid nodules E04.2 Time Spent (min) 30
== END 2025-03-03 10:26 | disposition home or self-care (01) ==
LOC: HO.ENCR 10:04
PROVIDERS: PCP Family Medicine; Visit Provider Student in an Organized Health Care Education/Training Program
DX: E04.2 Nontoxic multinodular goiter (principal)
CPT/HCPCS: 99214

== ENCOUNTER → 2025-03-03 10:03 | Outpatient (BNVA) | payer MEDICAID, SELFPAY | PROVIDERS: PCP Family Medicine; Visit Provider Student in an Organized Health Care Education/Training Program | DX: E04.2 Nontoxic multinodular goiter (principal); E78.5 Hyperlipidemia, unspecified; I25.10 Atherosclerotic heart disease of native coronary artery without angina pectoris | CPT/HCPCS: 99212 ==

== ENCOUNTER 2025-05-10 08:39 | Outpatient (AMB) | payer MEDICAID, SELFPAY ==
--- NOTE | 2025-05-10 08:44 | A.OFFVIS_ITS ---
Intake Visit Reasons: 6 month fu Allergies flu shot Adverse Reaction (Severe, Uncoded 03/03/25 10:09) Patient can't remember reaction. Medication List - Last Reconciled 05/10/25 by Hever Wilson MD amitriptyline mg PO amlodipine 20 mg PO DAILY aspirin 81 mg PO DAILY atorvastatin 80 mg PO DAILY 90 days cane Daily As directed, 999 days cyclobenzaprine 5 mg PO BID PRN 5 days diclofenac sodium 75 mg PO BID diltiazem HCl ER 60 mg PO Q12H 90 days ezetimibe 10 mg PO DAILY fluticasone propionate 50 mcg/actuation 1 spray intranasal Q12H hydrochlorothiazide 50 mg (2 x 25 mg) PO DAILY 90 days lidocaine 5% (Lidoderm) 1 patch topical DAILY 30 days lisinopril 40 mg (2 x 20 mg) PO DAILY 90 days lisinopril-hydrochlorothiazide 20-12.5 mg 1 tab PO DAILY magnesium aspart,citrate,oxide mg PO meclizine 50 mg PO TID PRN metoprolol succinate ER 100 mg PO DAILY paroxetine HCl 40 mg PO QAM polyethylene glycol 3350 (Miralax) 17 grams PO DAILY spironolactone 25 mg PO DAILY 30 days HPI Comments Details: Sleeping better than before and getting 3 hrs of sleep at a time. Then wakes for an hour then goes back to sleep. Feels rested in the morning. She wakes 2-3 / night but able to go back to sleep. Vertigo spells daily with any head movement for a few seconds when she gets up or moves head quickly,??helped by Meclizine. She did not tolerate the vestibular therapy. Meclizine 50mg tid makes her able to function. Did not tolerate Clonazepam. Her Memory is not good and is worse than 3 yrs ago. Tremors in the hands intermittently , L>R. She is not sleeping at all with trouble falling asleep and staying asleep. Depression is better. Complains of LLE pain and cramps for 2 + yrs, worse lately. Also has low back pain. She moved here from [facility] about one year ago after the of her 2 years ago. She's had some elements of depression and anxiety. She has been unable to learn the language. She is currently living with one of her 2 daughters who live in this area. 2 years earlier, approximately 2018 she had fallen and hit the back of her head with a fracture of her leg and loss of consciousness. Since after that she's noticed that she has some periods of confusion and some trouble with short-term memory and understanding and sometimes getting words out. It doesn't appear to be a progressive disorder. She does not sleep well at night. She takes care of herself but needs some help with bills and paperwork. She is otherwise independent. No trouble with bladder or bowel control. She was being treated with some 6 monthly IV infusions of vitamins and other brain stimulators in [place]. Getting a lot of headaches also with sharp pains.?Neck pain and LUE numbness. [facility] Medical History (Updated 05/10/25 @ 08:57 by Hever Wilson MD) Vertigo Insomnia Cervical spondylosis Anxiety and depression Peripheral neuropathy Hypertension MCI (mild cognitive impairment) No pertinent past medical history Surgical History History of cardiac cath Hx of appendectomy Family History Mother HTN (hypertension) Father No problems noted. Social History Housing: House Alcohol intake: never Patient Tobacco Use Status: Never used Tobacco e-Cigarette/Vaping Use: Never Used Second Hand Smoke Exposure: No Advance Directives Date on File: 08/15/20 service: No Current occupational status: retired Current occupational exposures/hazards: No Cognitive needs: No Hearing needs: No Vision needs: No Review of Systems Const Details: ?Sleep:? Difficulty getting to sleepadmits.? Difficulty maintaining sleepadmits.? Urge to move legsdenies.? Teeth grindingdenies.? Shouting or Kicking during sleep denies.? Abnormal behavior during sleepdenies.? Excessive sleepdenies.? Snoring admits.? Daytime sleepinessdenies. ???General/Constitutional:? Change in appetitedenies.? Chillsdenies.? Fatiguedenies.? Feverdenies.? Weight gaindenies.? Weight lossdenies. ???Ophthalmologic:? Blurred visionadmits.? Diminished visual acuitydenies. ???ENT:? Stuffinessdenies.? Decreased hearingdenies.? Dry mouthdenies.? Ear paindenies.? Nosebleeddenies.? Ringing in the earsdenies.? Sinus paindenies.? Sore throat denies.? Swollen glandsdenies. ???Endocrine:? Cold intolerancedenies.? Excessive thirstdenies.? Frequent urinationdenies.? Heat intolerancedenies. ???Respiratory:? Shortness of breathdenies.? Chest paindenies.? Coughdenies. ???Breast:? Breast lumpdenies.? Nipple dischargedenies. ???Cardiovascular:? Chest pain at restdenies.? Chest pain with exertiondenies.? Claudicationdenies .? Dizzinessdenies.? Fluid accumulation in the legsdenies.? Irregular heartbeat denies.? Palpitationsdenies. ???Gastrointestinal:? Abdominal paindenies.? Constipationdenies.? Diarrheadenies.? Difficulty swallowingdenies.? Heartburndenies.? Nauseadenies.? Rectal bleedingdenies. ???Hematology:? Easy bruisingdenies.? Prolonged bleedingdenies. ???Genitourinary:? Frequent urinationdenies.? Urgencydenies.? Incontinencedenies.? Erectile Dysfunctiondenies. ???Musculoskeletal:? Neck painadmits.? Back painadmits.? Muscle achesadmits.? Painful jointsadmits.? Sciaticadenies.? Weaknessdenies. ???Podiatric:? Difficulty walkingdenies.? Foot numbnessdenies. ???Neurologic:? Difficulty swallowingdenies.? Balance difficultydenies.? Coordinationnormal.? Difficulty speakingdenies.? Dizzinessadmits.? Faintingdenies.? Gait abnormality denies.? Headacheadmits.? Loss of strengthdenies.? Loss of use of extremity denies.? Low back paindenies.? Memory lossadmits.? Seizuresdenies.? Ticsdenies.? Tingling/Numbnessleft hand and foot> right.? Transient loss of visiondenies.? Tremoradmits. ???Psychiatric:? Anxietyadmits.? Auditory/visual hallucinationsdenies.? Delusionsdenies.? Depressed moodadmits.? Stressorsadmits.? Substance abusedenies.? Suicidal thoughtsdenies. Physical Exam Neuro Other: Neurological: Abnormal neurological findings:??MMS score 29/30.?Mental Status:??alert and oriented X 3 except for 10th instead of 9th,Normal attention, orientation, memory and affect.?Cranial Nerves:??Pupils are equal, round and reactive to light. Fundoscopy shows normal disc bilaterally. External occular muscles are intact. Visual nielsen are full, no ptosis. Face is symmetrical, no facial weakness or droop. Facial sensations are normal. Tongue protrudes in midline. Palate elevates symmetrically. Shoulder shrugging is normal..?Motor Examination:??Normal muscle tone, bulk and strength,?No atrophy or fasciculations,?No drift of the extended upper extremities,?Deep tendon reflexes are 2+?,?Plantars are flexor?.?Straight Leg Raising:??90 degrees.?Sensory Exam:??Normal light touch, temperature, pinprick, vibration and joint-position sensations?,?Rhomberg sign is absent.?Coordination:??no ataxia,?no titubation,?[id number], aurv-[id number]-[id number] test and rapid alternating movements were normal.?Gait Exam:??Within normal limits.?Cerebellar Signs:??Ibmaer-of-axal and veou-hn-datu is normal,?no dysdiadochokinesia?.?Extrapyramidal System:??No tremor, rigidity with normal facial expressions,?No bradykinesia, no bradyphrenia. Normal arm swing and posture. No propulsion or retropulsion.?Speech:??Normal,?no dysphasia or dysarthria..? Mini Mental Status Exam: Level of Consciousness:??Alert.?Orientation:??Knows correct year, month, date off by one, day and season,Knows correct city, county and state. Knows correct location and floor.?Registration:??Able to register 3 objects.?Attention:??Serial 7's performed accurately to 93.?Recall:??Able to recall 3 out of 3 objects.?Language:??Normal spontaneous speech, fluency, repetition,naming, comprehension, reading and writing.?Total Score:??29/30.? General Examination: GENERAL APPEARANCE:??normal,?in no acute distress.?HEAD:??normocephal ic,?atraumatic.?EYES:??sclera non-icteric,?conjunctiva clear.?EARS:??auditory canal clear,?tympanic membrane intact, clear.?NOSE:??no lesions.?ORAL CAVITY:??gums normal,?mucosa moist,?no lesions.?THRO AT:??clear.?NECK/THYROID:??no cervical lymphadenopathy,?thyroid normal,?neck supple, full range of motion,?no carotid bruit.?SKIN:??no rashes,?no significant birthmarks.?HEART:??S1, S2 normal,?no murmurs.?LUNGS:??clear anteriorly and posteriorly.?CHEST:??no gross rib deformity,?clear to auscultation.?BACK:??normal exam of spine.?EXTREMITIES:??no edema.?PERIPHERAL PULSES:??normal.?PSYCH:??alert, oriented,?cognitive function intact,?cooperative with exam.? Assessment & Plan Assessment & Plan (1) Vertigo: Code(s): R42 - Dizziness and giddiness Category: Medical (2) Insomnia: Code(s): G47.00 - Insomnia, unspecified Category: Medical (3) MCI (mild cognitive impairment): Code(s): G31.84 - Mild cognitive impairment of uncertain or unknown etiology Category: Medical Plan Continue current meds. Increase amitriptyline to 20mg hs. Medications: New amitriptyline at bedtime 20 mg (2 x 10 mg) PO ONCE 60 tabs 5RF 30 days Changed From meclizine 50 mg PO TID PRN dizziness To meclizine 50 mg (2 x 25 mg) PO TID PRN 180 tabs 5RF dizziness 30 days Coding Level of Care Code Est Pt Level 4 (27689) Diagnoses Vertigo R42 Insomnia G47.00 MCI (mild cognitive impairment) G31.84
== END 2025-05-10 09:42 | disposition home or self-care (01) ==
LOC: HO.HSM 08:40
PROVIDERS: PCP Family Medicine; Referring Provider Family Medicine; Visit Provider Psychiatry & Neurology Neurology
DX: R42 Dizziness and giddiness (principal); G47.00 Insomnia, unspecified; G31.84 Mild cognitive impairment of uncertain or unknown etiology
CPT/HCPCS: 99214

== ENCOUNTER → 2025-05-10 08:39 | Outpatient (BNVA) | payer MEDICAID, SELFPAY | PROVIDERS: PCP Family Medicine; Referring Provider Family Medicine; Visit Provider Psychiatry & Neurology Neurology | DX: R42 Dizziness and giddiness (principal); G47.00 Insomnia, unspecified; G31.84 Mild cognitive impairment of uncertain or unknown etiology | CPT/HCPCS: 99212 ==

== ENCOUNTER 2025-06-01 08:44 | Outpatient (AMB) | payer MEDICAID, SELFPAY ==
--- NOTE | 2025-06-01 08:51 | A.OFFPC_ITS ---
Vital Signs 06/01/25 08:54 Height 5 ft Weight 152 lb 2 oz BMI 29.7 BP 136/80 Blood Pressure Location Rt brachial Position Sitting Respiration 16 Pulse 71 Pulse Source Pulse Oximeter Temp 97.3 F Temp Source Oral Pulse Oximetry (%) 96 Oxygen Delivery Method Room Air Intake Visit Reasons: follow-up hypertension and chronic conditions. Intake Note: patient is scheduled for htn and chronic conditions Dog And Cat Food Cook Required: No Allergies flu shot Adverse Reaction (Severe, Uncoded 03/03/25 10:09) Patient can't remember reaction. Medication List - Last Reconciled 06/01/25 by Sergei Delgado MD amitriptyline 20 mg (2 x 10 mg) PO ONCE 30 days amlodipine 20 mg PO DAILY aspirin 81 mg PO DAILY atorvastatin 80 mg PO DAILY 90 days cane Daily As directed, 999 days cyclobenzaprine 5 mg PO BID PRN 5 days diclofenac sodium 75 mg PO BID diltiazem HCl ER 60 mg PO Q12H 90 days ezetimibe 10 mg PO DAILY fluticasone propionate 50 mcg/actuation 1 spray intranasal Q12H hydrochlorothiazide 50 mg (2 x 25 mg) PO DAILY 90 days lidocaine 5% (Lidoderm) 1 patch topical DAILY 30 days lisinopril 40 mg (2 x 20 mg) PO DAILY 90 days lisinopril-hydrochlorothiazide 20-12.5 mg 1 tab PO DAILY magnesium aspart,citrate,oxide mg PO meclizine 50 mg (2 x 25 mg) PO TID PRN 30 days metoprolol succinate ER 100 mg PO DAILY paroxetine HCl 40 mg PO QAM polyethylene glycol 3350 (Miralax) 17 grams PO DAILY spironolactone 25 mg PO DAILY 30 days Tobacco use date assessed: 10/22/24 Dental Screening Dental Screen Date: 03/02/24 HPI follow-up hypertension and chronic conditions. HPI Details 69 y/o female presents to f/u hypertensi on, chronic conditions. BP today 136/80, 71p. Hx of CAD. She notes she is only taking lisinopril and diltiazem. Pt notes she has a BP monitor at home. Per pt, sometimes numbers are higher, sometimes they're lower. [facility] Medical History (Updated 05/10/25 @ 08:57 by Hever Wilson MD) Vertigo Insomnia Cervical spondylosis Anxiety and depression Peripheral neuropathy Hypertension MCI (mild cognitive impairment) No pertinent past medical history Surgical History History of cardiac cath Hx of appendectomy Family History Mother HTN (hypertension) Father No problems noted. Social History Housing: House Alcohol intake: never Patient Tobacco Use Status: Never used Tobacco e-Cigarette/Vaping Use: Never Used Second Hand Smoke Exposure: No Advance Directives Date on File: 08/15/20 service: No Current occupational status: retired Current occupational exposures/hazards: No Cognitive needs: No Hearing needs: No Vision needs: No Questionnaire Thrive Questionnaire Date Thrive assessed: 11/26/24 I am a: Parent/Caregiver What is your living situation today?: I have a steady place to live Within the past 12 months, did the food you bought not last and you didn't have the money to get more?: Never true Within the past 12 months, did you worry whether your food would run out before you got money to buy more?: Never true Do you have trouble paying for medicines?: No Do you have trouble getting transportation to medical appointments?: No Do you have trouble paying your heating and electricity bill?: No Do you have trouble taking care of your child, family member or friend?: No Do you have trouble with day-to-day activities such as bathing, preparing meals, shopping, managing finances, etc.?: Yes Are you currently unemployed and looking for a job?: No Are you interested in more education?: No Please select the resources that you would like help with: None Currently or been in a relationship where the following occur: No concerns reported THRIVE Score: 0 MARY-7 AMB Questionnaire MARY-7 Date MARY - 7 assessed: 11/25/23 Source: Developed by Drs. Vinay Payan, Nehal Hardy, Tai Dempsey and colleagues, with an educational trini from [employer]. Physical exam (Primary Care) Vital Signs: Last Vital Signs Temp 97.3 F 06/01/25 08:54 Pulse 71 06/01/25 08:54 Resp 16 06/01/25 08:54 BP 136/80 06/01/25 08:54 Pulse Ox 96 06/01/25 08:54 Oxygen Delivery Method Room Air 06/01/25 08:54 BMI result Body Mass Index 29.7 Tobacco/Smoking Status: Tobacco use Status Tobacco use date assessed 10/22/24 06/01/25 08:57 Patient Tobacco Use Status Never used Tobacco 06/01/25 08:57 e-Cigarette/Vaping Use Never Used 06/01/25 08:57 Thrive Assessment: Date of Thrive Assessment Date Thrive assessed 11/26/24 06/01/25 08:57 Currently or been in a relationship where the following occur: No concerns reported Coding Level of Care Code Est Pt Level 4 (54289) Diagnoses Hypertension I10 Coronary artery disease involving [place] coronary artery of [place] heart, unspecified whether angina present I25.10 Associated angina: unspecified whether angina present Coronary Disease-Associated Artery/Lesion type: [place] artery [place] vs. transplanted heart: [place] heart Hypersomnia G47.10 Assessment & Plan Assessment & Plan (1) Hypertension: Code(s): I10 - Essential (primary) hypertension Category: Medical Plan: Blood pressure was still above goal of less than 130/80 and at other provider's offices, it had been even higher. Reviewed med list with patient and there were several medications she is no longer taking. Currently only taking: diltiazem ER 60 mg b.i.d. Lisinopril 40 (2 x 20mg tabs) mg daily Will add metoprolol ER 25 mg daily Follow-up in 1 month (2) Coronary artery disease: Code(s): I25.10 - Atherosclerotic heart disease of [place] coronary artery without angina pectoris Category: Medical Qualifiers: Associated angina: unspecified whether angina present Coronary Disease- Associated Artery/Lesion type: [place] artery [place] vs. transplanted heart: [place] heart Qualified Code(s): I25.10 - Atherosclerotic heart disease of [place] coronary artery without angina pectoris Plan: Stable (3) Hypersomnia: Code(s): G47.10 - Hypersomnia, unspecified Category: Medical Plan: Referred to Sleep Medicine Orders: Referrals Sleep Medicine Referral G47.10 - Hypersomnia, unspecified Medications: New metoprolol succinate ER 25 mg PO DAILY 90 tabs 3RF 90 days Discontinued spironolactone Discontinued Reason: Duplicate 25 mg PO DAILY 30 days 30 tabs 2RF hydrochlorothiazide Discontinued Reason: Doctor's Order 50 mg (2 x 25 mg) PO DAILY 90 days 180 tabs 3RF
[2025-06-01 08:54] VITALS: BP 136/80; PULSE 71; RESP 16; TEMP 36.3; O2SAT 96; BMI 29.7
== END 2025-06-01 09:28 | disposition home or self-care (01) ==
LOC: HO.HMCFM 08:45
PROVIDERS: PCP Family Medicine; Visit Provider Family Medicine
DX: I10 Essential (primary) hypertension (principal); I25.10 Atherosclerotic heart disease of native coronary artery without angina pectoris; G47.10 Hypersomnia, unspecified

== ENCOUNTER → 2025-06-01 08:44 | Outpatient (BNVA) | payer MEDICAID, SELFPAY | PROVIDERS: PCP Family Medicine; Visit Provider Family Medicine | DX: I10 Essential (primary) hypertension (principal); I25.10 Atherosclerotic heart disease of native coronary artery without angina pectoris; G47.10 Hypersomnia, unspecified; Z79.899 Other long term (current) drug therapy | CPT/HCPCS: 99212 ==

== ENCOUNTER 2025-10-05 09:01 | Outpatient (AMB) | payer MEDICAID, SELFPAY ==
--- NOTE | 2025-10-05 09:16 | MHC.OFFVIS ---
Vital Signs 10/05/25 09:18 Height 5 ft Weight 152 lb 1.903 oz BMI 29.7 BP 130/76 Blood Pressure Location Lt brachial Position Sitting Pulse 68 Pulse Source Monitor Intake Visit Reasons: 1 yr f/up Intake Note: 1 yr f/up Aviation Electronic Warfare Operator Required: Yes Aviation Electronic Warfare Operator Services: Aviation Electronic Warfare Operator Offered & Declined Aviation Electronic Warfare Operator Name: daughter Accompanied by: Daughter Allergies flu shot Adverse Reaction (Severe, Uncoded 03/03/25 10:09) Patient can't remember reaction. Medication List - Last Reconciled 10/05/25 by Amilcar Sutton MD amitriptyline 20 mg (2 x 10 mg) PO ONCE 30 days aspirin 81 mg PO DAILY atorvastatin 80 mg PO DAILY 90 days cane Daily As directed, 999 days cyclobenzaprine 5 mg PO BID PRN 5 days diclofenac sodium 75 mg PO BID diltiazem HCl ER 60 mg PO Q12H 90 days ezetimibe 10 mg PO DAILY fluticasone propionate 50 mcg/actuation 1 spray intranasal Q12H lidocaine 5% (Lidoderm) 1 patch topical DAILY 30 days lisinopril 40 mg (2 x 20 mg) PO DAILY 90 days magnesium aspart,citrate,oxide mg PO meclizine 50 mg (2 x 25 mg) PO TID PRN 30 days metoprolol succinate ER 25 mg PO DAILY 90 days paroxetine HCl 40 mg PO QAM polyethylene glycol 3350 (Miralax) 17 grams PO DAILY HPI Comments Details: Pleasant 70-year-old [place] female with background history of hypertension and 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 She also has some neurological issues ongoing and cognitive problems with some confusion. She was previously on amlodipine but developed lower extremity edema and she will stop the amlodipine. Blood pressure control is good. She is denying any chest pain or shortness of breath. Taking medications regularly. No further chest pains. Taking medications regularly without any issues. Daughter said that patient saw neurology but no obvious cause for the cognitive decline was noticed. Overall she has been stable. She just has numbness in her left little finger. 01/28/24: She was last seen in September 2022. She returns for follow-up. Denying any chest pain or shortness of breath. Blood pressure readings have been high. She has background of spontaneous coronary artery dissection. She has background of hyperlipidemia and last LDL cholesterol was 127 with total cholesterol 217, triglycerides 190 and HDL 52 on 08/18/2023. She is denying any symptoms on follow-up. 10/06/2024: She is here for follow-up. She is been doing well. No chest pain or shortness of breath. Blood pressure is mildly elevated but she has been getting dizzy spells off and on. 10/05/2025: She is here for follow-up. Doing well. No chest discomfort shortness of breath. Blood pressure well controlled. [facility] Medical History Vertigo Insomnia Cervical spondylosis Anxiety and depression Peripheral neuropathy Hypertension MCI (mild cognitive impairment) No pertinent past medical history Surgical History History of cardiac cath Hx of appendectomy Family History Mother HTN (hypertension) Father No problems noted. Social History Housing: House Alcohol intake: never Patient Tobacco Use Status: Never used Tobacco e-Cigarette/Vaping Use: Never Used Second Hand Smoke Exposure: No Advance Directives Date on File: 08/15/20 service: No Current occupational status: retired Current occupational exposures/hazards: No Cognitive needs: No Hearing needs: No Vision needs: No Review of Systems Const Denies chills, Denies fatigue, Denies fever(s), Denies frequent falls, Denies weakness, Denies weight gain and Denies weight loss ENT Denies dizziness Card Denies chest pain, Denies leg edema, Denies lightheadedness, Denies palpitations, Denies dyspnea and Denies dyspnea on exertion Resp Denies cough, Denies dyspnea and Denies dyspnea on exertion GI Denies hematochezia Musc Denies abnormal gait, Denies muscle weakness, Denies numbness, Denies radiating pain into limb and Denies tingling Neuro Denies abnormal gait, Denies dizziness, Denies frequent falls, Denies numbness, Denies tingling and Denies weakness Endo Denies fatigue and Denies palpitations Physical Exam Vital Signs: Last Vital Signs Pulse 68 10/05/25 09:18 BP 130/76 10/05/25 09:18 BMI result Body Mass Index 29.7 GENERAL APPEARANCE: in no acute distress, well developed, well nourished. NECK/THYROID: no carotid bruit, no jugular venous distention. SKIN: no suspicious lesions, warm and dry. HEART: no murmurs, regular rate and rhythm, S1, S2 normal. LUNGS: clear to auscultation bilaterally. ABDOMEN: normal, bowel sounds present, soft, nontender, nondistended. EXTREMITIES: no clubbing, cyanosis, or edema. PERIPHERAL PULSES: equal. NEUROLOGIC: Alert and oriented, power left-sided 4/5 PSYCH: mood/affect full range. Office Procedures EKG Details: Sinus rhythm 68 beats per minute, normal ECG, QTC 391 milliseconds. [id number], Complete Assessment & Plan Assessment & Plan (1) Hypertension: Code(s): I10 - Essential (primary) hypertension Category: Medical (2) Coronary artery dissection: Code(s): I25.42 - Coronary artery dissection Category: Medical Plan Pleasant 70-year-old female who is here for follow-up. She is background history of spontaneous coronary artery dissection. This was conservatively managed. She has been doing well. She is on baby aspirin. Blood pressure is well controlled. Stable and we will see us back in 1 year. Thank you for allowing me to participate in the care of your patient. Please feel free to contact me if you have any questions. Coding Level of Care Code Est Pt Level 3 (01540) Diagnoses Hypertension I10 Coronary artery dissection I25.42 CPT Codes EKG - CPT: 51407-[id number], Complete ([id number])
[2025-10-05 09:18] VITALS: BP 130/76; PULSE 68; BMI 29.7
== END 2025-10-05 09:37 | disposition home or self-care (01) ==
LOC: HO.HCS 09:02
PROVIDERS: PCP Family Medicine; Visit Provider Internal Medicine Cardiovascular Disease
DX: I10 Essential (primary) hypertension (principal); I25.42 Coronary artery dissection
CPT/HCPCS: 93010; 99213

== ENCOUNTER → 2025-10-05 09:01 | Outpatient (BNVA) | payer MEDICAID, SELFPAY | PROVIDERS: PCP Family Medicine; Visit Provider Internal Medicine Cardiovascular Disease | DX: I10 Essential (primary) hypertension (principal); I25.42 Coronary artery dissection | CPT/HCPCS: 93005; 99212 ==

== ENCOUNTER 2025-10-13 09:18 | Outpatient (AMB) | payer MEDICARE, MEDICAID, SELFPAY ==
--- NOTE | 2025-10-13 09:20 | A.OFFPC_ITS ---
Vital Signs 10/13/25 09:24 10/13/25 10:19 Height 5 ft Weight 152 lb BMI 29.7 BP 144/65 H 134/62 Blood Pressure Location Lt brachial Lt brachial Position Sitting Sitting Respiration 16 Pulse 69 67 Pulse Source Pulse Oximeter Monitor Temp 97.5 F Temp Source Oral Pulse Oximetry (%) 98 Oxygen Delivery Method Room Air Intake Visit Reasons: f/u HTN Intake Note: patient here for follow up on HTN Allergy And Immunology Specialist Required: No Allergy And Immunology Specialist Name: pt w/ daughter Information Interpreted: non-clinical & clinical Accompanied by: Daughter Is last menstrual period known: No Post menopausal: No Patient : No Allergies flu shot Adverse Reaction (Severe, Uncoded 10/13/25 09:23) Patient can't remember reaction. Medication List - Last Reconciled 10/13/25 by Sergei Delgado MD amitriptyline 20 mg (2 x 10 mg) PO ONCE 30 days aspirin 81 mg PO DAILY atorvastatin 80 mg PO DAILY 90 days cane Daily As directed, 999 days cyclobenzaprine 5 mg PO BID PRN 5 days diclofenac sodium 75 mg PO BID diltiazem HCl ER 60 mg PO Q12H 90 days ezetimibe 10 mg PO DAILY fluticasone propionate 50 mcg/actuation 1 spray intranasal Q12H lidocaine 5% (Lidoderm) 1 patch topical DAILY 30 days lisinopril 40 mg (2 x 20 mg) PO DAILY 90 days magnesium aspart,citrate,oxide mg PO meclizine 50 mg (2 x 25 mg) PO TID PRN 30 days metoprolol succinate ER 25 mg PO DAILY 90 days paroxetine HCl 40 mg PO QAM polyethylene glycol 3350 (Miralax) 17 grams PO DAILY Tobacco use date assessed: 10/13/25 Fall risk assessment: No Falls in past year Last assessed Fall Risk: 10/13/25 Dental Screening Dental Screen Date: 10/13/25 Did you have a dental visit in the last 12 months?: Yes Did you have a dental problem in the last 6 months where you did not have access to dental care?: No Was dental information given to patient?: Patient has dentist HPI f/u HTN HPI Details 70 y/o female presents to f/u HTN. Blood pressure today 144/65, 69p. She is on lisinopril 40mg, metoprolol 25mg daily. [facility] Medical History Vertigo Insomnia Cervical spondylosis Anxiety and depression Peripheral neuropathy Hypertension MCI (mild cognitive impairment) No pertinent past medical history Surgical History History of cardiac cath Hx of appendectomy Family History Mother HTN (hypertension) Father No problems noted. Social History Housing: House Alcohol intake: never Patient Tobacco Use Status: Never used Tobacco e-Cigarette/Vaping Use: Never Used Second Hand Smoke Exposure: No Advance Directives Date on File: 08/15/20 Patient : No service: No Current occupational status: retired Current occupational exposures/hazards: No Cognitive needs: No Hearing needs: No Vision needs: No Questionnaire Thrive Questionnaire Date Thrive assessed: 11/26/24 I am a: Parent/Caregiver What is your living situation today?: I have a steady place to live Within the past 12 months, did the food you bought not last and you didn't have the money to get more?: Never true Within the past 12 months, did you worry whether your food would run out before you got money to buy more?: Never true Do you have trouble paying for medicines?: No Do you have trouble getting transportation to medical appointments?: No Do you have trouble paying your heating and electricity bill?: No Do you have trouble taking care of your child, family member or friend?: No Do you have trouble with day-to-day activities such as bathing, preparing meals, shopping, managing finances, etc.?: Yes Are you currently unemployed and looking for a job?: No Are you interested in more education?: No Please select the resources that you would like help with: None Currently or been in a relationship where the following occur: No concerns reported THRIVE Score: 0 MARY-7 AMB Questionnaire MARY-7 Date MARY - 7 assessed: 11/25/23 Source: Developed by Drs. Vinay Payan, Nehal Hardy, Tai Dempsey and colleagues, with an educational trini from [employer] Review of Systems Const Denies chills, Denies fatigue, Denies fever(s), Denies headache(s) and Denies weakness ENT Denies dizziness and Denies headache(s) Card Denies chest pain, Denies lightheadedness, Denies dyspnea and Denies other (Palpitations) Resp Denies cough, Denies dyspnea, Denies wheezing and Denies other ( shortness of breath) Musc Denies numbness and Denies tingling Neuro Denies dizziness, Denies headache(s), Denies numbness, Denies tingling, Denies paresthesias and Denies weakness Psych Denies anxiety and Denies depression Endo Denies fatigue Aller/Immun Denies wheezing Physical exam (Primary Care) Vital Signs: Last Vital Signs Temp 97.5 F 10/13/25 09:24 Pulse 69 10/13/25 09:24 Resp 16 10/13/25 09:24 BP 144/65 H 10/13/25 09:24 Pulse Ox 98 10/13/25 09:24 Oxygen Delivery Method Room Air 10/13/25 09:24 BMI result Body Mass Index 29.7 Tobacco/Smoking Status: Tobacco use Status Tobacco use date assessed 10/13/25 10/13/25 09:27 Patient Tobacco Use Status Never used Tobacco 10/13/25 09:27 e-Cigarette/Vaping Use Never Used 10/13/25 09:27 Thrive Assessment: Date of Thrive Assessment Date Thrive assessed 11/26/24 10/13/25 09:27 Currently or been in a relationship where the following occur: No concerns reported Const General: no acute distress and well developed Nutritional Appearance: well nourished Orientation/consciousness: patient oriented x3 [facility] Head: Yes normocephalic and Yes atraumatic Eyes General: appearance normal, both eyes and all related structures Pupils: Equal, round and reactive pupils present EOM: EOMs intact bilaterally Resp Effort & Inspection: normal respiratory effort Auscultation: clear to auscultation bilaterally Cardio Rate: regular rate Rhythm: regular rhythm Heart sounds: S1 normal heart sound present, S2 normal heart sound present, no gallops, no murmurs and no rubs Neuro General: patient oriented x3 and gait normal Cranial nerves: Yes Equal, round and reactive pupils present Psych Affect: normal affect Coding Level of Care Code Est Pt Level 3 (39810) Diagnoses Hypertension I10 Coronary artery disease involving [place] coronary artery of [place] heart, unspecified whether angina present I25.10 Associated angina: unspecified whether angina present Coronary Disease-Associated Artery/Lesion type: [place] artery [place] vs. transplanted heart: [place] heart Assessment & Plan Assessment & Plan (1) Hypertension: Code(s): I10 - Essential (primary) hypertension Category: Medical Plan: 70-year-old female with history of hypertension and coronary artery dissection presents for follow-up hypertension Had added metoprolol at a prior visit and she continues diltiazem and lisinopril as well. Blood pressure is fairly well controlled. Goal is less than 130/80 Continue current medications Avoid salt and sodium Encouraged exercise (2) Coronary artery disease: Code(s): I25.10 - Atherosclerotic heart disease of [place] coronary artery without angina pectoris Category: Medical Qualifiers: Associated angina: unspecified whether angina present Coronary Disease- Associated Artery/Lesion type: [place] artery [place] vs. transplanted heart: [place] heart Qualified Code(s): I25.10 - Atherosclerotic heart disease of [place] coronary artery without angina pectoris Plan: Recent appointment with cardiology Stable Continue current medication regimen Follow-up with Cardiology as recommended
[2025-10-13 09:24] VITALS: BP 144/65; PULSE 69; RESP 16; TEMP 36.4; O2SAT 98; BMI 29.7
[2025-10-13 10:19] VITALS: BP 134/62; PULSE 67
== END 2025-10-13 12:29 | disposition home or self-care (01) ==
LOC: HO.HMCFM 09:19
PROVIDERS: PCP Family Medicine; Visit Provider Family Medicine
DX: I10 Essential (primary) hypertension (principal); I25.10 Atherosclerotic heart disease of native coronary artery without angina pectoris

== ENCOUNTER → 2025-10-13 09:18 | Outpatient (BNVA) | payer MEDICARE, MEDICAID, SELFPAY | PROVIDERS: PCP Family Medicine; Visit Provider Family Medicine | DX: I10 Essential (primary) hypertension (principal); I25.10 Atherosclerotic heart disease of native coronary artery without angina pectoris; Z79.899 Other long term (current) drug therapy | CPT/HCPCS: 99212 ==